=== PATIENT | male | born 1940 | race Caucasian/White ===

== ENCOUNTER 2016-10-11 11:52 | Emergency (ER) | payer OTHER ==
[~2016-10-11] VITALS: Ht 170.2 cm; Wt 104.1 kg
[~2016-10-11 11:52] MED LIST: ALL300 PO; ATRIN INH; CHOL1000 PO; CLIN150C PO; CYAN10004 PO; DIGO0.122 PO; DUTA0.5C PO; FURO-85 PO; INSDGIPEN SC; INSUINJ2 SQ; LEVAAER2 INH; METO100T44 PO; MOME50SP5 NAE; NTRGSL/4 UT; SIMV20TA5 PO; SPR25 PO; ZINC1TAB PO
[2016-10-11 11:56] VITALS: TEMP 36.9; Ht 170.2 cm; Wt 104.1 kg
--- NOTE | 2016-10-11 12:21 | EMERGENCY ROOM VISIT NOTE ---
History First contact with patient: 12:05 Chief Complaint: ABDOMINAL PAIN Stated Complaint: STOMACH SICK History of Present Illness The patient is a 76 year old male who presents to the Emergency Room via private vehicle accompanied by and son with complaints of "stomach sick". The patient states that he is here because of his shortness of breath. He states that for the past few weeks he's been experiencing worsening shortness of breath with lying flat, and this had used 2 L of oxygen while at home. He states that he has a history of CHF and this feels similar to previous exacerbations. He has noted an increase in weight, as well as swelling in both legs. He states that he has very little dizziness, and very minimal abdominal pain if at all. He does have a history of myocardial infarction in 1985 or 1986. 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 At this time he denies any chest pain, fevers, chills, nausea, vomiting, history of blood clots. His insurance verification rep is Romario Taylor PA-C. The patient states that he does take medications for his blood pressure as well as for his fluid. Review of Systems A complete 6-point Review of Systems was discussed with the patient, with pertinent positives and negatives listed in the History of Present Illness. All remaining Review of Systems questions can be considered negative unless otherwise specified. Past Medical/Surgical History Medical Problems: (1) A-fib (2) Cmxtc-pt-gfrayek renal failure (3) Coronary arteriosclerosis (4) Essential hypertension (5) Metabolic encephalopathy (6) Unresponsive episode Family History Diabetes mellitus Heart disease Hypertension Social History Smoking Status: Former Smoker Drug Use: none Marital Status: Occupation Status: retired, disabled Current/Historical Medications Scheduled Acetaminophen (Tylenol Arthritis Ext Rel), 650 MG PO Q8H Allopurinol (Allopurinol), 450 MG PO QAM Cholecalciferol (Vitamin D3), 1 TAB PO DAILY Cyanocobalamin (Vitamin B-12 1000 Mcg), 1,000 MCG PO DAILY Digoxin (Digoxin), 0.125 MG PO MWF Dutasteride (Avodart), 0.5 MG PO DAILY Furosemide (Lasix), 80 MG PO QAM Furosemide (Lasix), 60 MG PO QPM Furosemide (Lasix), 2 TAB PO DAILY Insulin Aspart (Novolog Flexpen), 15 UNITS SQ WM Insulin Glargine (Lantus Solostar), 45 UNIT SC QPM Ipratropium-Albuterol (Combivent Respimat), 1 PUFFS INH BID Metoprolol Succ (Toprol Xl) (Toprol-Xl ), 100 MG PO BID Mometasone Furoate (Nasal) (Mometasone Furoate), 2 SPRAYS LESTER BID Simvastatin (Zocor), 20 MG PO QPM Spironolactone (Spironolactone), 12.5 MG PO MWF Zinc Gluconate (Zinc), 25 MG PO DAILY Scheduled PRN Clindamycin Hcl (Cleocin), 4 CAP PO UD PRN for dental work Nitroglycerin (Nitrostat), 0.4 MG UT UD PRN for Chest Pain Allergies Coded Allergies: Zolpidem (Verified Allergy, Intermediate, SHORTNESS OF BREATH, 10/11/16) complaint of cough and shortness breath and itching Penicillins (Verified Allergy, Unknown, RASH, 10/11/16) Physical Exam Vital Signs Date Time Temp Pulse Resp B/P Pulse Ox O2 Delivery O2 Flow Rate FiO2 10/11/16 18:04 76 20 97/65 93 10/11/16 17:25 79 20 108/70 93 Room Air 10/11/16 16:33 79 10/11/16 16:30 78 24 113/70 92 Room Air 10/11/16 15:34 79 22 117/56 92 Room Air 10/11/16 13:55 81 24 103/60 94 Room Air 10/11/16 13:00 93 Room Air 10/11/16 13:00 93 Room Air 10/11/16 12:40 93 Room Air 10/11/16 12:27 79 10/11/16 11:56 36.9 96 20 99/53 94 Room Air Physical Exam VITAL SIGNS - Vital signs and nursing notes were reviewed. Patient is afebrile , normotensive, non-tachycardic and is saturating well at 94%. GENERAL -76-year-old male appearing his stated age who is in no acute distress. He is conversant, and does not appear to have any significant respiratory distress. Communicates well with provider and answers questions appropriately. SKIN - Without rashes. No petechial rash. HEAD - NC/AT. EYES - PERRL with EOMI bilaterally. Sclera anicteric. Palpebral conjunctiva pink and moist with no injection noted. EARS - No deformities of external structures noted on gross examination bilaterally. NOSE - Midline and without cyanosis. No epistaxis or purulent drainage noted. MOUTH/OROPHARYNX - Without perioral cyanosis. Buccal mucosa pink and moist and without leukoplakia. Tongue midline with equal elevation of palate bilaterally. No tonsillar hypertrophy, erythema, or exudates noted. Good dentition noted. NECK - Neck with FROM. No meningismus. LUNGS - Chest wall symmetric without accessory muscle use, intercostals retractions, or central cyanosis. Normal vesicular breath sounds CTA B/L. No wheezes, rales, or rhonchi appreciated. CARDIAC - RRR with S1/S2. No murmur, rubs, or gallops appreciated. ABDOMEN - Abdominal contour without pulsations or visible masses. BS normoactive all four quadrants. There is tenderness in the right upper quadrant. No palpable masses, hepatosplenomegaly, or ascites noted. EXTREMITIES - No clubbing or peripheral cyanosis. No pretibial edema present. +3 /5 radial, posterior tibial, and dorsalis pedis pulses palpated throughout. +5/ 5 strength noted in UE/LE bilaterally. NEUROLOGIC - Cranial nerves II through XII grossly intact. PSYCH - Pt is very pleasant and interacts well with examiner. Medical Decision & Procedures ER Provider Diagnostic Interpretation: BILIARY ULTRASOUND CLINICAL HISTORY: Right upper quadrant abdominal pain COMPARISON STUDY: CT scan dated 02/10/2016 FINDINGS: The pancreas appears normal as visualized. No focal hepatic masses are visualized. There is no intra or extrahepatic biliary ductal dilatation. The common bile duct measures 6 mm. There is minimal sludge within the gallbladder. There is trace pericholecystic fluid. No shadowing gallbladder calculi are visualized. There is a right pleural effusion. IMPRESSION: 1. Small amount of sludge within the gallbladder. Trace pericholecystic fluid. No shadowing calculi identified 2. No evidence of ductal dilatation. 3. Right pleural effusion Electronically signed by: Willi Nance M.D. 10/11/2016 3:29 PM Dictated Date/Time: 10/11/2016 3:26 PM CHEST ONE VIEW PORTABLE CLINICAL HISTORY: Congestive failure. Shortness of breath. COMPARISON STUDY: 05/24/2016 FINDINGS: There are postsurgical changes of midline sternotomy. 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 There are postsurgical changes of midline sternotomy and valvular replacement. The heart remains enlarged. There is radiographic evidence of congestive failure/fluid overload with improving pulmonary edema. There are small bilateral pleural effusions. There is no acute rectal consolidation.[ IMPRESSION: Cardiomegaly and radiographic evidence of congestive failure, improved when compared with the prior May 2016 study Electronically signed by: Willi Nance M.D. 10/11/2016 1:00 PM Dictated Date/Time: 10/11/2016 12:59 PM Laboratory Results 10/11/16 12:30 Red Blood Count 3.36, Mean Corpuscular Volume 102.1, Mean Corpuscular Hemoglobin 33.6, Mean Corpuscular Hemoglobin Concent 32.9, Mean Platelet Volume 10.8, Neutrophils (%) (Auto) 73.2, Lymphocytes (%) (Auto) 16.7, Monocytes (%) ( Auto) 5.5, Eosinophils (%) (Auto) 3.8, Basophils (%) (Auto) 0.4, Neutrophils # ( Auto) 10.34, Lymphocytes # (Auto) 2.36, Monocytes # (Auto) 0.77, Eosinophils # ( Auto) 0.53, Basophils # (Auto) 0.06 10/11/16 12:30 Test 10/11/16 12:30 10/11/16 12:34 White Blood Count 14.11 K/uL (4.8-10.8) Red Blood Count 3.36 M/uL (4.7-6.1) Hemoglobin 11.3 g/dL (14.0-18.0) Hematocrit 34.3 % (42-52) Mean Corpuscular Volume 102.1 fL (80-100) Mean Corpuscular Hemoglobin 33.6 pg (25-34) Mean Corpuscular Hemoglobin Concent 32.9 g/dl (32-36) Platelet Count 173 K/uL (130-400) Mean Platelet Volume 10.8 fL (7.4-10.4) Neutrophils (%) (Auto) 73.2 % Lymphocytes (%) (Auto) 16.7 % Monocytes (%) (Auto) 5.5 % Eosinophils (%) (Auto) 3.8 % Basophils (%) (Auto) 0.4 % Neutrophils # (Auto) 10.34 K/uL (1.4-6.5) Lymphocytes # (Auto) 2.36 K/uL (1.2-3.4) Monocytes # (Auto) 0.77 K/uL (0.11-0.59) Eosinophils # (Auto) 0.53 K/uL (0-0.5) Basophils # (Auto) 0.06 K/uL (0-0.2) RDW Standard Deviation 57.7 fL (36.4-46.3) RDW Coefficient of Variation 15.6 % (11.5-14.5) Immature Granulocyte % (Auto) 0.4 % Immature Granulocyte # (Auto) 0.05 K/uL (0.00-0.02) Anion Gap 7.0 mmol/L (3-11) Est Creatinine Clear Calc Drug Dose 33.9 ml/min Estimated GFR () 34.2 Estimated GFR (Non- 29.5 BUN/Creatinine Ratio 24.7 (10-20) Calcium Level 9.0 mg/dl (8.5-10.1) Total Bilirubin 1.2 mg/dl (0.2-1) Aspartate Amino Transf (AST/SGOT) 36 U/L (15-37) Alanine Aminotransferase (ALT/SGPT) 21 U/L (12-78) Alkaline Phosphatase 292 U/L (45-117) Total Protein 7.8 gm/dl (6.4-8.2) Albumin 2.9 gm/dl (3.4-5.0) Globulin 4.9 gm/dl (2.5-4.0) Albumin/Globulin Ratio 0.6 (0.9-2) Lipase 405 U/L (73-393) Bedside Troponin I 0.020 ng/ml (0-0.045) YH-Vmn-M-Type Natriuretic Peptide 1767 pg/ml (0-1800) Medications Administered Medications (Trade) Dose Ordered Sig/Ilya Route Start Time Stop Time Status Last Admin Dose Admin Furosemide/Syringe (Lasix Inj/ Syringe) 8 ml @ 4 mls/min NOW STAT IV 10/11/16 16:08 10/11/16 16:09 DC 10/11/16 16:53 4 MLS/MIN Medical Decision Patient was seen and evaluated as above. He presents today with shortness of breath has been progressively worsening, history of CHF as well as minimal right upper quadrant abdominal pain. The patient initially was triaged is having abdominal pain however upon history and physical examination is complaints of focused around shortness of breath. He states that he has a history of CHF, feels as though he is gaining weight, is retaining fluids in his legs and is having increased trouble breathing particularly when lying flat. He does take Lasix currently, 80 mg in the morning followed by 60 mg in the evening. He also notes very minimal dizziness. He denies any chest pain. He currently is saturating well on room air. I do not suspect pulmonary embolism. EKG reveals a ventricular paced rhythm, without any evidence of acute ectopy or ischemic change. IV access was initiated and the above workup was performed to evaluate for his symptomatology. CBC reveals leukocytosis at 14.11, hemoglobin of 11.3. The hemoglobin appears to be stable from previous. The leukocytosis is an interval development. The CMP reveals creatinine of 2.1 which appears to be worse than previous. Glucose of 211, total bilirubin of 1.2 , alkaline phosphatase of 292, [id number] troponin is negative and BNP is 1767. Lipase is 405. I suspect the patient may have a potential underlying gallbladder etiology therefore right upper quadrant ultrasound was pursued. This is reveal a small amount of sludge with pericholecystic fluid. At this time I do not believe emergent surgery is necessary. I believe he can follow- up in the outpatient setting. I believe that clinically he is experiencing a CHF exacerbation, and was also evaluated by my attending. He recommended that we give him 80 mg of Lasix IV followed by an additional dose of 80 mg Lasix mid day, between his morning and evening dose. I will write him a prescription for this and send this to his pharmacy. He was educated upon this medication as well as his and son. They were very receptive to this. The patient does not have any evidence of consolidation on his chest x-ray but there is evidence of effusion. This also correlates with CHF. I believe that the patient this time is better managed in the outpatient setting, and the patient seems to be in agreement that he does not like admission at this time. The patient was also evaluated by my attending. The patient was discharged home in good condition after educating upon worrisome symptoms which to return, and answering questions. In evaluation treatment this patient the following differential diagnoses were entertained: Cholecystitis, CHF, PE, NC, among others. It was recommended the patient obtain a HIDA scan in the outpatient setting with close follow-up with his family doctor and insurance verification rep as soon as possible. Impression Primary Impression: Acute exacerbation of CHF (congestive heart failure) Additional Impressions: Leukocytosis Anemia Right upper quadrant abdominal pain Total bilirubin, elevated Alkaline phosphatase raised Cardiomegaly Sludge in gallbladder pericholicystic fluid Departure Information Dispostion Home / Self-Care Condition GOOD Prescriptions Furosemide (LASIX) 40 Mg Tab 2 TAB PO DAILY for 15 Days, #30 TAB 1 Refill Prov: Adan Cuevas, FRANCINE 10/11/16 Referrals Octavio Bueno M.D. (PCP) Patient Instructions My [facility] Additional Instructions You were seen in the emergency department for your shortness of breath and right upper quadrant abdominal pain. There is evidence of slight irritation of the gallbladder, but at this time I do not suspect an infected gallbladder. It appears at this time you're experiencing a worsening of your heart failure. For this reason it is recommended that you had 80 mg of Lasix between your current 2 doses. Please continue your morning and evening dose of Lasix but please add 80 mg daily midday. Please follow-up with your insurance verification rep regarding this as soon as possible by calling their office first thing Thursday. Please follow-up with your family doctor regarding today's visit to discuss imaging and lab results in more detail. Please return to the emergency department with any new/concerning symptoms. Please rest, drink water and eat a healthy well-balanced diet. Thank you for your time. Problem Qualifiers
[2016-10-11] MEDS ORDERED: LNX125 PO (12:36)
[2016-10-11] MEDS ORDERED: NVLGI/PEN SQ (12:36)
[2016-10-11] MEDS ORDERED: IPRA1AER2 INH (12:36)
[2016-10-11] MEDS ORDERED: SIMV40TA2 PO (12:36)
[2016-10-11] MEDS ORDERED: ACET1TAB84 PO (12:36)
[2016-10-11] MEDS ORDERED: MOME6000 NAE (12:36)
[2016-10-11 12:55] LABS: POINT OF CARE TROPONIN I 0.02 ng/ml (0-0.045)
[2016-10-11 12:58] LABS: BASO % 0.4 %; BASO ABS # 0.06 K/uL (0-0.2); COMPLETE YES; EOS % 3.8 %; HEMATOCRIT 34.3 % (42-52); IG% 0.4 %; LYMPH % 16.7 %; LYMPH ABS # 2.36 K/uL (1.2-3.4); MEAN CELL VOLUME 102.1 fL (80-100); MEAN CORPUSCULAR HEMOGLOBIN 33.6 pg (25-34); MEAN CORPUSCULAR HGB CONC 32.9 g/dl (32-36); MEAN PLATELET VOLUME 10.8 fL (7.4-10.4); MONO % 5.5 %; NEUT % 73.2 %; PLATELET COUNT 173 K/uL (130-400); RED BLOOD COUNT 3.36 M/uL (4.7-6.1); WHITE BLOOD COUNT 14.11 K/uL (4.8-10.8)
[2016-10-11 13:00] VITALS: O2SAT 93
--- NOTE | 2016-10-11 13:03 | DIAGNOSTIC IMAGING REPORT ---
CHEST ONE VIEW PORTABLE CLINICAL HISTORY: Congestive failure. Shortness of breath. COMPARISON STUDY: 05/24/2016 FINDINGS: There are postsurgical changes of midline sternotomy. 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 There are postsurgical changes of midline sternotomy and valvular replacement. The heart remains enlarged. There is radiographic evidence of congestive failure/fluid overload with improving pulmonary edema. There are small bilateral pleural effusions. There is no acute rectal consolidation.[ IMPRESSION: Cardiomegaly and radiographic evidence of congestive failure, improved when compared with the prior May 2016 study Electronically signed by: Willi Nance M.D. 10/11/2016 1:00 PM Dictated Date/Time: 10/11/2016 12:59 PM
[2016-10-11 13:15] LABS: BUN/CREATININE RATIO 24.7 (10-20); CREATININE 2.1 mg/dl (0.60-1.40); POTASSIUM 4.4 mmol/L (3.5-5.1)
[2016-10-11 13:18] LABS: ALB/GLOB RATIO 0.6 (0.9-2)
--- NOTE | 2016-10-11 15:31 | DIAGNOSTIC IMAGING REPORT ---
BILIARY ULTRASOUND CLINICAL HISTORY: Right upper quadrant abdominal pain COMPARISON STUDY: CT scan dated 02/10/2016 FINDINGS: The pancreas appears normal as visualized. No focal hepatic masses are visualized. There is no intra or extrahepatic biliary ductal dilatation. The common bile duct measures 6 mm. There is minimal sludge within the gallbladder. There is trace pericholecystic fluid. No shadowing gallbladder calculi are visualized. There is a right pleural effusion. IMPRESSION: 1. Small amount of sludge within the gallbladder. Trace pericholecystic fluid. No shadowing calculi identified 2. No evidence of ductal dilatation. 3. Right pleural effusion Electronically signed by: Willi Nance M.D. 10/11/2016 3:29 PM Dictated Date/Time: 10/11/2016 3:26 PM
[2016-10-11] MEDS ORDERED: FUROSEMIDE INJ 80 MG in SYRINGE 0 ML IV STA (16:08)
--- NOTE | 2016-10-11 16:08 | EMERGENCY ROOM VISIT NOTE ---
ED Visit Note First contact with patient: 12:05 76-year-old male here with shortness of breath. He has a prior history of congestive failure. The patient was fully evaluated by Adan Cuevas PA-C. Please see his note. I also independently evaluated the patient. The patient has elevation of his white count and transaminases. The patient appears to be in congestive failure. The patient was given 80 mg of IV Lasix. The patient may have an occult cholelithiasis but his primary problem is congestive failure. The patient will need close follow-up by his family physician/ cardiology.
[2016-10-11] MEDS ORDERED: FURO40TA3 PO (17:32)
[2016-10-11 18:04] VITALS: BP 97/65; PULSE 76; O2SAT 93
== END 2016-10-11 18:04 | disposition home or self-care (01) ==
LOC: C.EDB 11:54
DX: I50.9 Heart failure, unspecified (principal); D72.829 Elevated white blood cell count, unspecified; D64.9 Anemia, unspecified; R10.11 Right upper quadrant pain; I51.7 Cardiomegaly; R74.8 Abnormal levels of other serum enzymes; K83.8 Other specified diseases of biliary tract; I12.9 Hypertensive chronic kidney disease with stage 1 through stage 4 chronic kidney disease, or unspecified chronic kidney disease; N18.9 Chronic kidney disease, unspecified; I25.10 Atherosclerotic heart disease of native coronary artery without angina pectoris; Z82.49 Family history of ischemic heart disease and other diseases of the circulatory system; Z83.3 Family history of diabetes mellitus; I48.91 Unspecified atrial fibrillation; Z79.4 Long term (current) use of insulin; Z79.899 Other long term (current) drug therapy

== ENCOUNTER 2017-01-05 13:03 | Inpatient (IN) | payer OTHER ==
[~2017-01-05] VITALS: Ht 172.7 cm; Wt 85.9 kg
[2017-01-05] VITALS (23 sets, daily range): BP systolic 56–129; BP diastolic 21–48; PULSE 74–91; TEMP 36.4; O2SAT 90–97; Ht 172.7 cm; Wt 85.9 kg
[~2017-01-05 13:03] MED LIST changes: +ACET1TAB84 PO; -ATRIN INH; -DIGO0.122 PO; +FURO40TA3 PO; -INSUINJ2 SQ; +IPRA1AER2 INH; -LEVAAER2 INH; +LNX125 PO; -METO100T44 PO; +METO1TAB69 PO; -MOME50SP5 NAE; +MOME6000 NAE; +NVLGI/PEN SQ; -SIMV20TA5 PO; +SIMV40TA2 PO
[2017-01-05] MEDS ORDERED: SODIUM CHLORIDE 0.9% 1000ML 1,000 ML IV STA (13:27)
[2017-01-05] MEDS ORDERED: DEXTROSE 50% 50 ML SYR ONE (13:47)
--- NOTE | 2017-01-05 13:51 | EMERGENCY ROOM VISIT NOTE ---
History Report prepared by Shantal: Savage Barger Under the Supervision of: Dr. Jeffery Fernandez M.D. First contact with patient: 13:17 Chief Complaint: ILLNESS Stated Complaint: GENERAL ILLNESS History of Present Illness The patient is a 76 year old male who presents to the Emergency Room by EMS with complaints of a persistent illness beginning a few days ago. His symptoms include vomiting, diarrhea, cough, and generalized weakness. He is currently being treated for scabies. Per nursing staff, the patient has not been eating or drinking much at home. He is diabetic. Per , the patient has been vomiting when he eats. She states that his vomit is mostly liquid. She also notes that the patient's stool appears "very dark". The patient denies feeling thirsty. He denies any abdominal pain, chest pain, urinary symptoms, fever, or increased leg swelling. He is not on any blood thinners. The patient has a history of cirrhosis of the liver, and a kidney mass. The mass on his kidney was identified about 10 months ago and has not been worked up. Source of History: patient Onset: A few days ago Quality: other (illness) Timing: other (persistent) Associated Symptoms: + cough, + vomiting, + melena, + diarrhea, + weakness ( generalized), No fevers, No chest pain, No abdominal pain, No urinary symptoms Note: The patient denies any increased leg swelling. Review of Systems See HPI for pertinent positives & negatives. A total of 10 systems reviewed and were otherwise negative. Past Medical & Surgical Medical Problems: (1) A-fib (2) [id number] renal failure (3) Coronary arteriosclerosis (4) Essential hypertension (5) Metabolic encephalopathy (6) Unresponsive episode Family History Diabetes mellitus Heart disease Hypertension Social History Smoking Status: Former Smoker Drug Use: none Marital Status: Occupation Status: retired, disabled Current/Historical Medications Scheduled Acetaminophen (Tylenol Arthritis Ext Rel), 650 MG PO Q8H Allopurinol (Allopurinol), 450 MG PO QAM Cholecalciferol (Vitamin D3), 1 TAB PO DAILY Cyanocobalamin (Vitamin B-12 1000 Mcg), 1,000 MCG PO DAILY Digoxin (Digoxin), 0.125 MG PO MWF Dutasteride (Avodart), 0.5 MG PO DAILY Insulin Aspart (Novolog Flexpen), 15 UNITS SQ WM Insulin Glargine (Lantus Solostar), 25 UNIT SC QPM Ipratropium-Albuterol (Combivent Respimat), 1 PUFFS INH BID Metoprolol Succ (Toprol Xl) (Toprol-Xl ), 100 MG PO BID Mometasone Furoate (Nasal) (Mometasone Furoate), 2 SPRAYS LESTER BID Simvastatin (Zocor), 20 MG PO QPM Spironolactone (Spironolactone), 12.5 MG PO MWF Torsemide (Demadex), 100 MG PO DAILY Zinc Gluconate (Zinc), 25 MG PO DAILY Scheduled PRN Clindamycin Hcl (Cleocin), 4 CAP PO UD PRN for dental work Nitroglycerin (Nitrostat), 0.4 MG UT UD PRN for Chest Pain Allergies Coded Allergies: Zolpidem (Verified Allergy, Intermediate, SHORTNESS OF BREATH, 01/05/17) complaint of cough and shortness breath and itching Penicillins (Verified Allergy, Unknown, RASH, 01/05/17) Physical Exam Vital Signs Date Time Temp Pulse Resp B/P (MAP) Pulse Ox O2 Delivery O2 Flow Rate FiO2 01/05/17 16:41 70 01/05/17 16:23 71 20 55/37 96 Nasal Cannula 3.0 01/05/17 15:16 63/43 NIBP 01/05/17 15:09 74 14 56/38 97 Room Air 2.5 01/05/17 14:45 75 14 140/108 95 Nasal Cannula 2.0 01/05/17 14:15 78 18 119/98 99 Nasal Cannula 2.0 01/05/17 13:33 95 Nasal Cannula 2.0 01/05/17 13:32 81 22 109/96 94 Nasal Cannula 2.0 01/05/17 13:20 36.5 80 16 88/39 91 Room Air 01/05/17 13:15 78 Physical Exam GENERAL: Patient is in no acute distress. HEENT: No acute trauma, normocephalic atraumatic, mucous membranes dry, no nasal congestion. NECK: No stridor, no adenopathy, no meningismus, trachea is midline. LUNGS: Clear to auscultation when listening anterior. Breath sound equal. No wheezing. HEART: Slightly irregular with a 2/6 systolic murmur and a possible rub. Normal rate. ABDOMEN: Soft. Palpable lesion to the RUQ, possibly consistent with an enlarged liver. No peritonitis. No obvious hernia. RECTAL: Dark stool, heme positive. EXTREMITIES: Moderate bilateral pedal edema without cellulitis. No evidence for acute trauma. NEUROLOGIC: Oriented x 3, no acute motor or sensory deficits, no focal weakness. SKIN: Jaundice. Multiple open areas across the skin consistent with possible bites vs generalized rash Medical Decision & Procedures ER Provider Diagnostic Interpretation: Radiology results as stated below per my review and radiologist interpretation: CHEST ONE VIEW PORTABLE FINDINGS: There are postsurgical changes of midline sternotomy and valvular replacement. A left subclavian pacer/defibrillator is evident. The heart remains enlarged. There is radiographic evidence of congestive failure with mild pulmonary edema. Small pleural effusions are suspected[ IMPRESSION: Worsening congestive failure. Electronically signed by: Willi Nance M.D. ABD/PELVIS NO IV OR ORAL CONT FINDINGS: There is a moderate-sized right pleural effusion with subsegmental alveolar opacities of the bilateral lung bases. No pneumoperitoneum identified. There is enlargement of the inferior cardiac chambers with pacer leads noted. Coronary 2-year-old and mitral annulus calcifications are seen. Median sternotomy wires are partially imaged. There is streak artifact from placement of the patient's arms which limits the study. There is small volume of intra-abdominal intrapelvic ascites with moderate volume diffuse body wall edema. Skin thickening along the anterior abdominal wall is redemonstrated. Evaluation of the hepatic parenchyma is limited secondary to the above factors as well as lack of IV contrast. There is suggestion of several low attenuating hepatic lesions measuring close to 3 cm within the right hepatic lobe. These were not definitely identified on comparison study. The spleen and adrenal glands are within normal limits. There is at least moderate diffuse pancreatic atrophy. There is no renal calculi or hydronephrosis identified. There is marked circumferential wall thickening of the partially collapsed urinary bladder. There appears to be a small diverticulum or urachal remnant emanating from the dome of the urinary bladder which is best seen on the sagittal images. Prostate is mildly enlarged. There is extensive atherosclerotic plaquing of the abdominal and iliac vasculature. There is mild fusiform aneurysmal dilation of the infrarenal abdominal aorta, 3.1 x 2.7 cm. No bulky retroperitoneal adenopathy is seen. There are several loops of nondilated small bowel air-fluid leveling without evidence of obstruction. Noninflamed colonic diverticuli are seen. The appendix is partially imaged on image 299 and appears to be within normal limits. There is diffuse body wall edema which is moderate. Is diffuse sclerotic metastasis throughout the pelvis and spine is new from comparison. IMPRESSION: 1. Findings compatible with diffuse sclerotic metastasis to the imaged axial and appendicular skeletal system. These findings are suspicious for prostate cancer. 2. Suggested diffuse hepatic metastasis with mild amount of intra-abdominal and intrapelvic ascites. 3. Small right pleural effusion with subsegmental consolidation of the bilateral lung bases suggesting atelectasis or pneumonitis. 4. Circumferential wall thickening of the urinary bladder suggests cystitis. 5. Mild fusiform aneurysmal dilation of the infrarenal abdominal aorta, 3.1 cm. The above report was generated using voice recognition software. It may contain grammatical, syntax or spelling errors. Electronically signed by: Ranulfo Rubi M.D. Laboratory Results 01/05/17 13:38 Red Blood Count 3.23, Mean Corpuscular Volume 92.9, Mean Corpuscular Hemoglobin 32.5, Mean Corpuscular Hemoglobin Concent 35.0, Mean Platelet Volume 10.3, Neutrophils (%) (Auto) 90.9, Lymphocytes (%) (Auto) 3.1, Monocytes (%) (Auto) 4.2, Eosinophils (%) (Auto) 0.6, Basophils (%) (Auto) 0.1, Neutrophils # (Auto) 25.83, Lymphocytes # (Auto) 0.87, Monocytes # (Auto) 1.18, Eosinophils # (Auto) 0.18, Basophils # (Auto) 0.02 01/05/17 14:28 Test 01/05/17 13:38 01/05/17 13:42 01/05/17 14:28 01/05/17 15:30 White Blood Count 28.38 K/uL (4.8-10.8) Red Blood Count 3.23 M/uL (4.7-6.1) Hemoglobin 10.5 g/dL (14.0-18.0) Hematocrit 30.0 % (42-52) Mean Corpuscular Volume 92.9 fL (80-100) Mean Corpuscular Hemoglobin 32.5 pg (25-34) Mean Corpuscular Hemoglobin Concent 35.0 g/dl (32-36) Platelet Count 178 K/uL (130-400) Mean Platelet Volume 10.3 fL (7.4-10.4) Neutrophils (%) (Auto) 90.9 % Lymphocytes (%) (Auto) 3.1 % Monocytes (%) (Auto) 4.2 % Eosinophils (%) (Auto) 0.6 % Basophils (%) (Auto) 0.1 % Neutrophils # (Auto) 25.83 K/uL (1.4-6.5) Lymphocytes # (Auto) 0.87 K/uL (1.2-3.4) Monocytes # (Auto) 1.18 K/uL (0.11-0.59) Eosinophils # (Auto) 0.18 K/uL (0-0.5) Basophils # (Auto) 0.02 K/uL (0-0.2) RDW Standard Deviation 69.6 fL (36.4-46.3) RDW Coefficient of Variation 21.2 % (11.5-14.5) Immature Granulocyte % (Auto) 1.1 % Immature Granulocyte # (Auto) 0.30 K/uL (0.00-0.02) Polychromasia 1+ Anisocytosis PRESENT Target Cells 1+ Ovalocytes 1+ Echinocytes 1+ Bedside Lactic Acid Venous 5.78 mmol/L (0.90-1.70) Anion Gap 13.0 mmol/L (3-11) Est Creatinine Clear Calc Drug Dose 12.4 ml/min Estimated GFR () 9.4 Estimated GFR (Non- 8.1 BUN/Creatinine Ratio 26.9 (10-20) Lactic Acid Level 5.7 mmol/L (0.4-2.0) Calcium Level 8.6 mg/dl (8.5-10.1) Magnesium Level 2.5 mg/dl (1.8-2.4) Total Bilirubin 14.1 mg/dl (0.2-1) Aspartate Amino Transf (AST/SGOT) 206 U/L (15-37) Alanine Aminotransferase (ALT/SGPT) 73 U/L (12-78) Alkaline Phosphatase 452 U/L (45-117) Troponin I 0.068 ng/ml (0-0.045) Total Protein 5.6 gm/dl (6.4-8.2) Albumin 1.7 gm/dl (3.4-5.0) Globulin 3.9 gm/dl (2.5-4.0) Albumin/Globulin Ratio 0.4 (0.9-2) Thyroid Stimulating Hormone (TSH) 0.896 uIu/ml (0.300-4.500) Random Cortisol 25.94 mcg/dl Digoxin Level 0.6 ng/ml (0.8-2.0) Test 01/05/17 16:20 Bedside Glucose 90 mg/dl (70-99) Laboratory results reviewed by me. Medications Administered Medications (Trade) Dose Ordered Sig/Ilya Route Start Time Stop Time Status Last Admin Dose Admin Sodium Chloride 1,000 ml @ 999 mls/hr Q1H1M STAT IV 01/05/17 13:27 01/05/17 14:27 DC 01/05/17 13:37 999 MLS/HR Dextrose (Dextrose 50% 50ML Syringe) 50 ml STK-MED ONCE .ROUTE 01/05/17 13:47 01/05/17 13:48 DC 01/05/17 13:52 25 ML Cefepime HCl 2000 mg/Dextrose 112.5 ml @ 200 mls/hr ONE STAT IV 01/05/17 15:06 01/05/17 15:39 DC 01/05/17 15:37 200 MLS/HR Vancomycin HCl (Vancomycin 1gm/ 270ml Nss) 1 gm NOW STAT IV 01/05/17 15:06 01/05/17 15:08 DC 01/05/17 15:17 1 GM Dobutamine HCl 250 ml @ 0 mls/hr Q0M PRN IV 01/05/17 16:15 02/04/17 16:14 01/05/17 16:37 16.9 MLS/HR ECG Indication: weakness Rate (beats per minute): 74 Rhythm: other (AV pacemaker) Findings: no acute ischemic change, no ectopy ED Course 1320: The patient was evaluated in room A11B. A complete history and physical exam was performed. 1327: Ordered Sodium Chloride 1000 ml @ 999 mls/hr IV. 1347: Ordered Dextrose 50% 50 mL IV. 1506: Ordered Vancomycin 1 gm/270 mL NSS IV, Cefepime HCl 2000 mg/Dextrose 112.5 mL @ 200 mL/hr IV. 1515: Upon reexamination the patient is resting comfortably. He would like to be a full code at the moment. I discussed results and treatment plan with the patient. He verbalizes agreement and understanding. The patient will be evaluated for further management. Medical Decision The patient is a 76 year old male who presents to the ED with complaints of a persistent illness. Differential diagnoses considered include dehydration, liver failure, renal failure, electrolyte imbalance, sepsis, bacteremia, GI bleeding, UTI, bowel obstruction and viral illness. I did personally review the patient's medication list. The patient's blood pressure was occasionally elevated and likely situational, outpatient follow-up is not required. There is a significant leukocytosis, likely consistent with infection or possibly just the stress of the situation. Patient was anemic and this was a newer finding for him. Stool was dark and heme positive by my testing. There was evidence for acute renal failure with a creatinine of over 6. There was evidence for liver disease-bilirubin was over 14. Chest film showed CHF. No pneumothorax. Blood cultures are pending. Urine culture is pending. Urinalysis is pending. Coags are pending. Abdominal and pelvis CT shows areas of multiple metastasis. No bowel obstruction. Lactic acid level was quite elevated consistent with dehydration and/or sepsis. Digoxin level was not toxic. The patient was aggressively managed. He was quite ill. He received IV saline and his blood pressure responded. Over his stay in the ER though, the blood pressure again dropped. He received a second saline bolus. I was hesitant to give fluids more aggressively as he had evidence for heart failure on chest film. He received IV vancomycin IV cefepime for antibiotic coverage. The patient is quite ill, I told him about my findings so far. I talked with the family. The patient does want to be a full code. The patient is mentating well despite the low blood pressure. He does have adequate peripheral IV access. I did consult the metal filer addiction professional. The patient was seen by the metal filer in the emergency room. I did talk with case management as well as the on-call hospitalist. Admission/observation is warranted. Of note, the patient is quite ill, he may not survive this hospital stay. He appears to be in heart failure. He is hypotensive and possibly septic. He is dehydrated with renal failure and liver disease. He is jaundiced. He has evidence for multiple areas of metastasis. He has evidence for anemia with GI bleeding. Consults Time Called: [id number] Consulting Physician: Ling Moreno Returned Call: [phone] Discussed the patient's case. The patient will be evaluated for further management. Additional Consults: Time Called: [id number] Consulted Physician: Dr. Castillo -ICU Returned Call: [phone] Additional Comments: Discussed the patient's case. The patient will be evaluated for further management. Impression Primary Impression: Vomiting Additional Impressions: Heme positive stool Dehydration CHF (congestive heart failure) Metastatic cancer Acute renal failure Hypotension Critical Care I have personally spent greater than 35 minutes of critical care time in the direct management of this patient. This includes bedside care, interpretation of diagnostic studies, and testing, discussion with consultants, patient, and family members, and other required patient management activities. This 35 minutes is in excess of all separately billable procedures. Scribe Attestation The scribe's documentation has been prepared under my direction and personally reviewed by me in its entirety. I confirm that the note above accurately reflects all work, treatment, procedures, and medical decision making performed by me. Departure Information Dispostion Being Evaluated By Hospitalist Octavio Villalba M.D. (PCP) Patient Instructions My [facility] Problem Qualifiers
--- NOTE | 2017-01-05 13:54 | DIAGNOSTIC IMAGING REPORT ---
CHEST ONE VIEW PORTABLE CLINICAL HISTORY: Weakness. Altered mental status. COMPARISON STUDY: 10/09/2016 FINDINGS: There are postsurgical changes of midline sternotomy and valvular replacement. A left subclavian pacer/defibrillator is evident. The heart remains enlarged. There is radiographic evidence of congestive failure with mild pulmonary edema. Small pleural effusions are suspected[ IMPRESSION: Worsening congestive failure. Electronically signed by: Willi Nance M.D. 01/05/2017 1:53 PM Dictated Date/Time: 01/05/2017 1:51 PM
[2017-01-05 14:49] LABS: MEAN CELL VOLUME 92.9 fL (80-100); MEAN CORPUSCULAR HEMOGLOBIN 32.5 pg (25-34); MEAN PLATELET VOLUME 10.3 fL (7.4-10.4); PLATELET COUNT 178 K/uL (130-400); RED BLOOD COUNT 3.23 M/uL (4.7-6.1); WHITE BLOOD COUNT 28.38 K/uL (4.8-10.8)
[2017-01-05 14:56] LABS: INR 2.4 (0.9-1.1); PARTIAL THROMBOPLASTIN RATIO 2.1
--- NOTE | 2017-01-05 14:57 | DIAGNOSTIC IMAGING REPORT ---
ABD/PELVIS NO IV OR ORAL CONT HISTORY:76 yearsMaleacute diffuse abdominal pain and general illness with concern for bowel obstruction COMPARISON: CT abdomen and pelvis 02/10/2016 TECHNIQUE: Multiple axial CT images of the abdomen and pelvis were obtained without contrast. FINDINGS: There is a moderate-sized right pleural effusion with subsegmental alveolar opacities of the bilateral lung bases. No pneumoperitoneum identified. There is enlargement of the inferior cardiac chambers with pacer leads noted. Coronary 2-year-old and mitral annulus calcifications are seen. Median sternotomy wires are partially imaged. There is streak artifact from placement of the patient's arms which limits the study. There is small volume of intra-abdominal intrapelvic ascites with moderate volume diffuse body wall edema. Skin thickening along the anterior abdominal wall is redemonstrated. Evaluation of the hepatic parenchyma is limited secondary to the above factors as well as lack of IV contrast. There is suggestion of several low attenuating hepatic lesions measuring close to 3 cm within the right hepatic lobe. These were not definitely identified on comparison study. The spleen and adrenal glands are within normal limits. There is at least moderate diffuse pancreatic atrophy. There is no renal calculi or hydronephrosis identified. There is marked circumferential wall thickening of the partially collapsed urinary bladder. There appears to be a small diverticulum or urachal remnant emanating from the dome of the urinary bladder which is best seen on the sagittal images. Prostate is mildly enlarged. There is extensive atherosclerotic plaquing of the abdominal and iliac vasculature. There is mild fusiform aneurysmal dilation of the infrarenal abdominal aorta, 3.1 x 2.7 cm. No bulky retroperitoneal adenopathy is seen. There are several loops of nondilated small bowel air-fluid leveling without evidence of obstruction. Noninflamed colonic diverticuli are seen. The appendix is partially imaged on image 299 and appears to be within normal limits. There is diffuse body wall edema which is moderate. Is diffuse sclerotic metastasis throughout the pelvis and spine is new from comparison. IMPRESSION: 1. Findings compatible with diffuse sclerotic metastasis to the imaged axial and appendicular skeletal system. These findings are suspicious for prostate cancer. 2. Suggested diffuse hepatic metastasis with mild amount of intra-abdominal and intrapelvic ascites. 3. Small right pleural effusion with subsegmental consolidation of the bilateral lung bases suggesting atelectasis or pneumonitis. 4. Circumferential wall thickening of the urinary bladder suggests cystitis. 5. Mild fusiform aneurysmal dilation of the infrarenal abdominal aorta, 3.1 cm. The above report was generated using voice recognition software. It may contain grammatical, syntax or spelling errors. Electronically signed by: Ranulfo Rubi M.D. 01/05/2017 2:56 PM Dictated Date/Time: 01/05/2017 2:45 PM
[2017-01-05] MEDS ORDERED: VANCOMYCIN 1GM/270ML NSS IV STA (15:06)
[2017-01-05] MEDS ORDERED: CEFEPIME IV 2,000 MG in DEXTROSE 5% 100ML 100 ML IV STA (15:06)
[2017-01-05] MEDS ORDERED: TORS100T13 PO (15:09)
[2017-01-05 15:15] LABS: ANISOCYTOSIS PRESENT; BASO % 0.1 %; BASO ABS # 0.02 K/uL (0-0.2); COMPLETE YES; ECHINOCYTES 1+; EOS % 0.6 %; IG% 1.1 %; LYMPH % 3.1 %; LYMPH ABS # 0.87 K/uL (1.2-3.4); MONO % 4.2 %; NEUT % 90.9 %; OVALOCYTES 1+; POLYCHROMASIA 1+; TARGET CELLS 1+
[2017-01-05 15:34] LABS: ALB/GLOB RATIO 0.4 (0.9-2); BUN/CREATININE RATIO 26.9 (10-20); CALCIUM 8.6 mg/dl (8.5-10.1); CREATININE 6.1 mg/dl (0.60-1.40); MAGNESIUM 2.5 mg/dl (1.8-2.4); POTASSIUM 5.1 mmol/L (3.5-5.1); THYROID STIMULATING HORMONE 0.896 uIu/ml (0.300-4.500)
[2017-01-05] MEDS ORDERED: DOBUTamine 500MG / 250ML D5W ONE (16:09)
[2017-01-05] MEDS ORDERED: DOBUTamine / D5W 500 MG IV PRN ×2 (16:15→18:00)
--- NOTE | 2017-01-05 16:32 | Critical Care Consultation ---
Critical Care Consultation Date of Consultation: Jan 05, 2017. Attending Physician: Wil Reason for Consultation: Hypotension, multisystem organ failure History of Present Illness Patient is a 76-year-old male who presented with generalized fatigue and skin turning yellow after 2-3 days of nausea and vomiting and generalized malaise. As a significant past medical history for coronary artery disease status post pacemaker and AICD. There is reported history of kidney cancer. Patient reports an approximately January he was evaluated by a urologist with a cystoscopy and reports there was evidence of blood draining from a ureter. Unclear whether the patient went for further evaluation with oncology, he reportedly obtained a second opinion, however the third additional workup with the next stage in the medical treatment plan to include a biopsy. Today the patient has 5 out of 10 pain that localizes to the abdomen, nausea, no longer vomiting, chronic diarrhea that has been black. Per ED physician they are guaiac positive stools. He reports he has an allergy to penicillin, however was from when he was a child and he has no recollection of any form of reaction. He denies alcohol or illicit drug use, he has a significant smoking history: Reports that he started in his teenage years and continued until the late 80s smoking at least a pack a day, which at minimum equates to a [id number] smoking history. He previously worked in a factory in [place], denied exposure to hazardous chemicals. He denies chest pain, thinks there is exertional dyspnea, increased leg swelling. No history of DVTs or PE. Past Medical/Surgical History as noted above Family History Diabetes mellitus Heart disease Hypertension Social History Smoking Status: Former Smoker Drug Use: none Marital Status: Occupation Status: retired, disabled Allergies Coded Allergies: Zolpidem (Verified Allergy, Intermediate, SHORTNESS OF BREATH, 01/05/17) complaint of cough and shortness breath and itching Penicillins (Verified Allergy, Unknown, RASH, 01/05/17) Home Medications Scheduled Acetaminophen (Tylenol Arthritis Ext Rel), 650 MG PO Q8H Allopurinol (Allopurinol), 450 MG PO QAM Cholecalciferol (Vitamin D3), 1 TAB PO DAILY Cyanocobalamin (Vitamin B-12 1000 Mcg), 1,000 MCG PO DAILY Digoxin (Digoxin), 0.125 MG PO MWF Dutasteride (Avodart), 0.5 MG PO DAILY Insulin Aspart (Novolog Flexpen), 15 UNITS SQ WM Insulin Glargine (Lantus Solostar), 25 UNIT SC QPM Ipratropium-Albuterol (Combivent Respimat), 1 PUFFS INH BID Metoprolol Succ (Toprol Xl) (Toprol-Xl ), 100 MG PO BID Mometasone Furoate (Nasal) (Mometasone Furoate), 2 SPRAYS LESTER BID Simvastatin (Zocor), 20 MG PO QPM Spironolactone (Spironolactone), 12.5 MG PO MWF Torsemide (Demadex), 100 MG PO DAILY Zinc Gluconate (Zinc), 25 MG PO DAILY Scheduled PRN Clindamycin Hcl (Cleocin), 4 CAP PO UD PRN for dental work Nitroglycerin (Nitrostat), 0.4 MG UT UD PRN for Chest Pain Review of Systems See above for pertinent positives & negatives. A total of 10 systems reviewed and were otherwise negative. Constitutional: + weakness, + fatigue, No fever Respiratory: + dyspnea on exertion, No cough, No sputum, No wheezing Physical Exam Date Time Temp Pulse Resp B/P (MAP) Pulse Ox O2 Delivery O2 Flow Rate FiO2 01/05/17 15:16 63/43 NIBP 01/05/17 15:09 74 14 56/38 97 Room Air 2.5 01/05/17 14:45 75 14 140/108 95 Nasal Cannula 2.0 01/05/17 14:15 78 18 119/98 99 Nasal Cannula 2.0 01/05/17 13:33 95 Nasal Cannula 2.0 01/05/17 13:32 81 22 109/96 94 Nasal Cannula 2.0 01/05/17 13:20 36.5 80 16 88/39 91 Room Air 01/05/17 13:15 78 General Appearance: uncomfortable, other (jaundice appearing) Head: normocephalic, atraumatic Eyes: PERRLA, EOMI, scleral icterus Neck: no tenderness, trachea midline, no stridor Respiratory: no respiratory distress, rhonchi Cardiovasular: regular rate/rhythm, systolic murmur Abdomen: no guarding, epigastric TTP Genitourinary - Male: external genitalia normal (uncirculsized male) Back: normal inspection, no paravertebral TTP Lower Extremities: edema Pulses: radial (R) (1+), radial (L) (1+), femoral (R) (1+), femoral (L) (1+) Neuro: alert, oriented x 3 Laboratory Results Last 24 Hours Test 01/05/17 13:38 01/05/17 13:40 01/05/17 13:42 01/05/17 14:10 White Blood Count 28.38 K/uL Red Blood Count 3.23 M/uL Hemoglobin 10.5 g/dL Hematocrit 30.0 % Mean Corpuscular Volume 92.9 fL Mean Corpuscular Hemoglobin 32.5 pg Mean Corpuscular Hemoglobin Concent 35.0 g/dl Platelet Count 178 K/uL Mean Platelet Volume 10.3 fL Neutrophils (%) (Auto) 90.9 % Lymphocytes (%) (Auto) 3.1 % Monocytes (%) (Auto) 4.2 % Eosinophils (%) (Auto) 0.6 % Basophils (%) (Auto) 0.1 % Neutrophils # (Auto) 25.83 K/uL Lymphocytes # (Auto) 0.87 K/uL Monocytes # (Auto) 1.18 K/uL Eosinophils # (Auto) 0.18 K/uL Basophils # (Auto) 0.02 K/uL RDW Standard Deviation 69.6 fL RDW Coefficient of Variation 21.2 % Immature Granulocyte % (Auto) 1.1 % Immature Granulocyte # (Auto) 0.30 K/uL Polychromasia 1+ Anisocytosis PRESENT Target Cells 1+ Ovalocytes 1+ Echinocytes 1+ Bedside Glucose 65 mg/dl 97 mg/dl Bedside Lactic Acid Venous 5.78 mmol/L Test 01/05/17 14:26 01/05/17 14:28 01/05/17 14:50 01/05/17 15:30 Bedside Glucose 92 mg/dl 87 mg/dl Sodium Level 129 mmol/L Potassium Level 5.1 mmol/L Chloride Level 95 mmol/L Carbon Dioxide Level 21 mmol/L Anion Gap 13.0 mmol/L Blood Urea Nitrogen 164 mg/dl Creatinine 6.10 mg/dl Est Creatinine Clear Calc Drug Dose 12.4 ml/min Estimated GFR () 9.4 Estimated GFR (Non- 8.1 BUN/Creatinine Ratio 26.9 Random Glucose 97 mg/dl Lactic Acid Level 5.7 mmol/L Calcium Level 8.6 mg/dl Magnesium Level 2.5 mg/dl Total Bilirubin 14.1 mg/dl Aspartate Amino Transf (AST/SGOT) 206 U/L Alanine Aminotransferase (ALT/SGPT) 73 U/L Alkaline Phosphatase 452 U/L Troponin I 0.068 ng/ml Total Protein 5.6 gm/dl Albumin 1.7 gm/dl Globulin 3.9 gm/dl Albumin/Globulin Ratio 0.4 Thyroid Stimulating Hormone (TSH) 0.896 uIu/ml Random Cortisol 25.94 mcg/dl Digoxin Level 0.6 ng/ml Diagnostic Results ABD/PELVIS NO IV OR ORAL CONT HISTORY:76 yearsMaleacute diffuse abdominal pain and general illness with concern for bowel obstruction COMPARISON: CT abdomen and pelvis 02/10/2016 TECHNIQUE: Multiple axial CT images of the abdomen and pelvis were obtained without contrast. FINDINGS: There is a moderate-sized right pleural effusion with subsegmental alveolar opacities of the bilateral lung bases. No pneumoperitoneum identified. There is enlargement of the inferior cardiac chambers with pacer leads noted. Coronary 2-year-old and mitral annulus calcifications are seen. Median sternotomy wires are partially imaged. There is streak artifact from placement of the patient's arms which limits the study. There is small volume of intra-abdominal intrapelvic ascites with moderate volume diffuse body wall edema. Skin thickening along the anterior abdominal wall is redemonstrated. Evaluation of the hepatic parenchyma is limited secondary to the above factors as well as lack of IV contrast. There is suggestion of several low attenuating hepatic lesions measuring close to 3 cm within the right hepatic lobe. These were not definitely identified on comparison study. The spleen and adrenal glands are within normal limits. There is at least moderate diffuse pancreatic atrophy. There is no renal calculi or hydronephrosis identified. There is marked circumferential wall thickening of the partially collapsed urinary bladder. There appears to be a small diverticulum or urachal remnant emanating from the dome of the urinary bladder which is best seen on the sagittal images. Prostate is mildly enlarged. There is extensive atherosclerotic plaquing of the abdominal and iliac vasculature. There is mild fusiform aneurysmal dilation of the infrarenal abdominal aorta, 3.1 x 2.7 cm. No bulky retroperitoneal adenopathy is seen. There are several loops of nondilated small bowel air-fluid leveling without evidence of obstruction. Noninflamed colonic diverticuli are seen. The appendix is partially imaged on image 299 and appears to be within normal limits. There is diffuse body wall edema which is moderate. Is diffuse sclerotic metastasis throughout the pelvis and spine is new from comparison. IMPRESSION: 1. Findings compatible with diffuse sclerotic metastasis to the imaged axial and appendicular skeletal system. These findings are suspicious for prostate cancer. 2. Suggested diffuse hepatic metastasis with mild amount of intra-abdominal and intrapelvic ascites. 3. Small right pleural effusion with subsegmental consolidation of the bilateral lung bases suggesting atelectasis or pneumonitis. 4. Circumferential wall thickening of the urinary bladder suggests cystitis. 5. Mild fusiform aneurysmal dilation of the infrarenal abdominal aorta, 3.1 cm. The above report was generated using voice recognition software. It may contain grammatical, syntax or spelling errors. Electronically signed by: Ranulfo Rubi M.D. 01/05/2017 2:56 PM Dictated Date/Time: 01/05/2017 2:45 PM The status of this report is Signed. Draft = Not yet reviewed or approved by Radiologist. Signed = Reviewed and approved by Radiologist. [~ rep ct add3]] CHEST ONE VIEW PORTABLE CLINICAL HISTORY: Weakness. Altered mental status. COMPARISON STUDY: 10/09/2016 FINDINGS: There are postsurgical changes of midline sternotomy and valvular replacement. A left subclavian pacer/defibrillator is evident. The heart remains enlarged. There is radiographic evidence of congestive failure with mild pulmonary edema. Small pleural effusions are suspected[ IMPRESSION: Worsening congestive failure. Electronically signed by: Willi Nance M.D. 01/05/2017 1:53 PM Dictated Date/Time: 01/05/2017 1:51 PM The status of this report is Signed. Draft = Not yet reviewed or approved by Radiologist. Signed = Reviewed and approved by Radiologist. Assessment & Plan Reason Critically Ill: Multi-system organ failure requiring vasoactive medication. PLAN: Neuro: Pain control, Tylenol when necessary Resp: Pleural effusion on the right * Supplemental oxygen as needed CV: Cardiomyopathy * Questionably sepsis related * Echocardiogram (formal) pending * Started on dobutamine, needs additional vasopressor * Will convert to Levophed, may require vasopressin Fluids/Renal: Renal failure * Nephrology consulted * Volume expansion with albumin, concern for volume overload * Lactic acidosis secondary to sepsis ID: Septic shock with unclear source * Cefepime started in the ED secondary to penicillin allergy * Penicillin allergy of unclear reaction * Vancomycin * Flagyl for anaerobic coverage * Clindamycin for staphylococcal toxin: Patient has small bullae on lower extremities question venous stasis versus staphylococcal scalded skin GI/Nutrition: Transaminitis Nothing by mouth as increasing vasopressor requirements Heme: Anemia * No indication for transfusion at this time Endocrine: Accu-Cheks per protocol Cortisol and TSH within limits I have personally spent 60 minutes of critical care time in the direct management of this patient. This is a life/limb threatening event. This includes time spent evaluating patient, direct bedside care, chart review, placing orders, interpretation of diagnostic studies, discussion with consultants, patient, and family members, as well as other required patient management activities. This time is exclusive of all separately billable procedures, and teaching time and separate from and in addition to any other critical care service time.
--- NOTE | 2017-01-05 16:43 | Procedure Note ---
Procedure Note Date of Service Jan 05, 2017. Procedure Note Critical Care Medicine Point of Care Bedside Ultrasound Procedure: Limited Transthoracic Echocardiogram Indication: Hypotension Date: 01/05/2017 Attending: Ten Castillo DO Fellow/Resident/Physician Lay Out Helper: Juliane Organs Examined: Heart, Vascular system Pericardial fluid: Absent Right ventricle size: Enlarged LV Contractility: Hypokinetic RV Contractility: Hypokinetic Mechanically ventilated breaths: No Hemodynamic Status: Heart rate 74, blood pressure 63/43 Impression: Hypokinetic left and right ventricles Plan: Dobutamine infusion, formal echocardiogram pending Procedure: Limited Bedside Lung Ultrasound Procedure Date: 01/05/2017 Indication: Evidence of volume overload Attending: Ten Castillo DO Resident/Physician Lay Out Helper: Juliane Organs Examined: Lung BLUE point (upper), BLUE point (lower), Phrenic Point (axillary), PLAPS point ( posterior) A lines visualized: Yes, Hemithorax: Bilateral anterior thorax B lines visualized: Yes, Hemithorax: Bilateral posterior thorax Lung Sliding: Yes, Hemithorax: Bilateral Tissue-like Sign: No, Hemithorax: Bilateral Shred Sign: No, Hemithorax: Bilateral Quad Sign: No, Hemithorax: Bilateral Sinusoid Sign: No, Hemithorax: Bilateral Type of effusions: No, Hemithorax: Bilateral Interpleural distance: Not applicable Impression: Mild pulmonary edema to the mid chest Plan: Await formal echo results Procedure: Limited to point compression test of the bilateral lower extremities Procedure Date: 01/05/2017 Indication: Cancer, bilateral leg swelling Attending: Ten Castillo DO Resident/Physician Lay Out Helper: Juliane Organs Examined: Bilateral common femoral veins, and bilateral popliteal veins Right common femoral vein: Compressible Left common femoral vein: Compressible left popliteal vein: Compressible right popliteal vein: Unable to visualize Impression: Negative to point compression test of left lower extremity, right lower extremity incompletely visualized Plan: Follow-up with formal venous duplex Images obtained are saved for permanent record
[2017-01-05] MEDS ORDERED: HEPARIN SOD 5000 UNIT/0.5 ML CARP SQ SCH (16:45)
[2017-01-05 17:16] LABS: MANUAL MICROSCOPIC REQUIRED? YES; REVIEW REQ? NO; SULFASALICYLIC ACID POS (NEG); URINE APPEARANCE CLOUDY (CLEAR); URINE COLOR BROWN; URINE SPECIFIC GRAVITY 1.023 (1.000-1.030)
[2017-01-05 17:21] LABS: URINE AMORPHOUS SEDIMENT PRESENT (NONE PRSENT); URINE BACTERIA 2+ (NEG); URINE RBC 0-4 /hpf (0-4)
--- NOTE | 2017-01-05 17:22 | History and Physical ---
History & Physical Date & Time of Service: Jan 05, 2017 at 16:49 Chief Complaint: General Illness Primary Care Physician: Octavio Bueno M.D. History of Present Illness Source: patient, family, clinic records This is a 76 year old male with a PMH of CAD s/p CABG, ischemic cardiomyopathy with EF < 20% s/p AICD, A. Fib, DM2, HTN - presents s/p fall - states he has been weak for the past few days; family noticed his jaundice/yellowing skin a few days prior as well. States he fell because he was not strong enough. He has noted some diarrhea as his only other symptom. Does state he has chronic back pain, but no acute issues to note. On presentation, w/up shows significant dehydration - as per family his appetite is lacking and worse in the past few days. Further w/up suggests metastatic cancer to liver and bone; Family states that he was told about a spot on his L kidney, but no further w/up was done. Past Medical/Surgical History Medical Problems: (1) A-fib Status: Chronic (2) [id number] renal failure Status: Resolved (3) Coronary arteriosclerosis Status: Chronic Family History Diabetes mellitus Heart disease Hypertension Social History Smoking Status: Former Smoker Drug Use: none Marital Status: Housing status: lives with family, assisted Occupational Status: retired, disabled Immunizations History of Influenza Vaccine: Yes History of Tetanus Vaccine?: Yes History of Pneumococcal: Yes Pneumococcal Date: Mar 22, 2010 History of Hepatitis B Vaccine: No Multi-Drug Resistant Organisms History of MDRO: No Allergies Coded Allergies: Zolpidem (Verified Allergy, Intermediate, SHORTNESS OF BREATH, 01/05/17) complaint of cough and shortness breath and itching Penicillins (Verified Allergy, Unknown, RASH, 01/05/17) Home Medications Scheduled Acetaminophen (Tylenol Arthritis Ext Rel), 650 MG PO Q8H Allopurinol (Allopurinol), 450 MG PO QAM Cholecalciferol (Vitamin D3), 1 TAB PO DAILY Cyanocobalamin (Vitamin B-12 1000 Mcg), 1,000 MCG PO DAILY Digoxin (Digoxin), 0.125 MG PO MWF Dutasteride (Avodart), 0.5 MG PO DAILY Insulin Aspart (Novolog Flexpen), 15 UNITS SQ WM Insulin Glargine (Lantus Solostar), 25 UNIT SC QPM Ipratropium-Albuterol (Combivent Respimat), 1 PUFFS INH BID Metoprolol Succ (Toprol Xl) (Toprol-Xl ), 100 MG PO BID Mometasone Furoate (Nasal) (Mometasone Furoate), 2 SPRAYS LESTER BID Simvastatin (Zocor), 20 MG PO QPM Spironolactone (Spironolactone), 12.5 MG PO MWF Torsemide (Demadex), 100 MG PO DAILY Zinc Gluconate (Zinc), 25 MG PO DAILY Scheduled PRN Clindamycin Hcl (Cleocin), 4 CAP PO UD PRN for dental work Nitroglycerin (Nitrostat), 0.4 MG UT UD PRN for Chest Pain Review of Systems Constitutional: + weakness, + fatigue, + problem reported (lack of appetite), No fever, No chills Eyes: No worsening of vision ENT: No hearing loss Respiratory: No cough, No sputum, No wheezing, No shortness of breath, No dyspnea on exertion Cardiovascular: + edema, No chest pain, No palpitations Abdomen: + pain, + nausea, + diarrhea, No vomiting, No constipation, No GI bleeding Musculoskeletal: + joint pain (low back pain) Genitourinary - Male: No hematuria, No dysuria, No urinary frequency, No urinary urgency Neurologic: + weakness, + balance problems Endocrine: + fatigue Hematologic / Lymphatic: No abnormal bleeding/bruising Integumentary: + rash (blistering on bilateral LE), + color change Physical Exam Vital Signs Date Time Temp Pulse Resp B/P (MAP) Pulse Ox O2 Delivery O2 Flow Rate FiO2 01/05/17 16:41 70 01/05/17 16:23 71 20 55/37 96 Nasal Cannula 3.0 01/05/17 15:16 63/43 NIBP 01/05/17 15:09 74 14 56/38 97 Room Air 2.5 01/05/17 14:45 75 14 140/108 95 Nasal Cannula 2.0 01/05/17 14:15 78 18 119/98 99 Nasal Cannula 2.0 01/05/17 13:33 95 Nasal Cannula 2.0 01/05/17 13:32 81 22 109/96 94 Nasal Cannula 2.0 01/05/17 13:20 36.5 80 16 88/39 91 Room Air 01/05/17 13:15 78 General Appearance: + mild distress, + pertinent finding (lethargic, jaundiced , ill-appearing; significant anasarca) Head: normocephalic, atraumatic ENT: hearing grossly normal Respiratory/Chest: no respiratory distress, no accessory muscle use Cardiovascular: regular rate, rhythm, no murmur Abdomen/GI: + tenderness, + distended, + pertinent finding (+anasarca) Extremities/Musculoskelatal: + swelling (+2 pitting edema b/l LE) Neurologic/Psych: alert Skin: + jaundice, + mottled, + pertinent finding (blistering of bilateral LE; bullae) Diagnostics Laboratory Results Results Past 24 Hours Test 01/05/17 13:38 01/05/17 13:40 01/05/17 13:42 01/05/17 14:10 Range/Units White Blood Count 28.38 4.8-10.8 K/uL Red Blood Count 3.23 4.7-6.1 M/uL Hemoglobin 10.5 14.0-18.0 g/dL Hematocrit 30.0 42-52 % Mean Corpuscular Volume 92.9 80-100 fL Mean Corpuscular Hemoglobin 32.5 25-34 pg Mean Corpuscular Hemoglobin Concent 35.0 32-36 g/dl Platelet Count 178 130-400 K/uL Mean Platelet Volume 10.3 7.4-10.4 fL Neutrophils (%) (Auto) 90.9 % Lymphocytes (%) (Auto) 3.1 % Monocytes (%) (Auto) 4.2 % Eosinophils (%) (Auto) 0.6 % Basophils (%) (Auto) 0.1 % Neutrophils # (Auto) 25.83 1.4-6.5 K/uL Lymphocytes # (Auto) 0.87 1.2-3.4 K/uL Monocytes # (Auto) 1.18 0.11-0.59 K/uL Eosinophils # (Auto) 0.18 0-0.5 K/uL Basophils # (Auto) 0.02 0-0.2 K/uL RDW Standard Deviation 69.6 36.4-46.3 fL RDW Coefficient of Variation 21.2 11.5-14.5 % Immature Granulocyte % (Auto) 1.1 % Immature Granulocyte # (Auto) 0.30 0.00-0.02 K/uL Polychromasia 1+ Anisocytosis PRESENT Target Cells 1+ Ovalocytes 1+ Echinocytes 1+ Bedside Glucose 65 97 70-99 mg/dl Bedside Lactic Acid Venous 5.78 0.90-1.70 mmol/L Test 01/05/17 14:26 01/05/17 14:28 01/05/17 14:50 01/05/17 15:30 Range/Units Bedside Glucose 92 87 70-99 mg/dl Sodium Level 129 136-145 mmol/L Potassium Level 5.1 3.5-5.1 mmol/L Chloride Level 95 98-107 mmol/L Carbon Dioxide Level 21 21-32 mmol/L Anion Gap 13.0 3-11 mmol/L Blood Urea Nitrogen 164 7-18 mg/dl Creatinine 6.10 0.60-1.40 mg/dl Est Creatinine Clear Calc Drug Dose 12.4 ml/min Estimated GFR () 9.4 Estimated GFR (Non- 8.1 BUN/Creatinine Ratio 26.9 10-20 Random Glucose 97 70-99 mg/dl Lactic Acid Level 5.7 0.4-2.0 mmol/L Calcium Level 8.6 8.5-10.1 mg/dl Magnesium Level 2.5 1.8-2.4 mg/dl Total Bilirubin 14.1 0.2-1 mg/dl Aspartate Amino Transf (AST/SGOT) 206 15-37 U/L Alanine Aminotransferase (ALT/SGPT) 73 12-78 U/L Alkaline Phosphatase 452 45-117 U/L Troponin I 0.068 0-0.045 ng/ml Total Protein 5.6 6.4-8.2 gm/dl Albumin 1.7 3.4-5.0 gm/dl Globulin 3.9 2.5-4.0 gm/dl Albumin/Globulin Ratio 0.4 0.9-2 Thyroid Stimulating Hormone (TSH) 0.896 0.300-4.500 uIu/ml Random Cortisol 25.94 mcg/dl Digoxin Level 0.6 0.8-2.0 ng/ml Test 01/05/17 16:20 Range/Units Bedside Glucose 90 70-99 mg/dl Microbiology Results 01/05/17 Blood Culture, Received Pending 01/05/17 Blood Culture, Received Pending 01/05/17 Urine Culture, Sadie Batch Pending Diagnostic Radiology CHEST ONE VIEW PORTABLE CLINICAL HISTORY: Weakness. Altered mental status. COMPARISON STUDY: 10/09/2016 FINDINGS: There are postsurgical changes of midline sternotomy and valvular replacement. A left subclavian pacer/defibrillator is evident. The heart remains enlarged. There is radiographic evidence of congestive failure with mild pulmonary edema. Small pleural effusions are suspected[ IMPRESSION: Worsening congestive failure. ABD/PELVIS NO IV OR ORAL CONT HISTORY:76 yearsMaleacute diffuse abdominal pain and general illness with concern for bowel obstruction COMPARISON: CT abdomen and pelvis 02/10/2016 TECHNIQUE: Multiple axial CT images of the abdomen and pelvis were obtained without contrast. FINDINGS: There is a moderate-sized right pleural effusion with subsegmental alveolar opacities of the bilateral lung bases. No pneumoperitoneum identified. There is enlargement of the inferior cardiac chambers with pacer leads noted. Coronary 2-year-old and mitral annulus calcifications are seen. Median sternotomy wires are partially imaged. There is streak artifact from placement of the patient's arms which limits the study. There is small volume of intra-abdominal intrapelvic ascites with moderate volume diffuse body wall edema. Skin thickening along the anterior abdominal wall is redemonstrated. Evaluation of the hepatic parenchyma is limited secondary to the above factors as well as lack of IV contrast. There is suggestion of several low attenuating hepatic lesions measuring close to 3 cm within the right hepatic lobe. These were not definitely identified on comparison study. The spleen and adrenal glands are within normal limits. There is at least moderate diffuse pancreatic atrophy. There is no renal calculi or hydronephrosis identified. There is marked circumferential wall thickening of the partially collapsed urinary bladder. There appears to be a small diverticulum or urachal remnant emanating from the dome of the urinary bladder which is best seen on the sagittal images. Prostate is mildly enlarged. There is extensive atherosclerotic plaquing of the abdominal and iliac vasculature. There is mild fusiform aneurysmal dilation of the infrarenal abdominal aorta, 3.1 x 2.7 cm. No bulky retroperitoneal adenopathy is seen. There are several loops of nondilated small bowel air-fluid leveling without evidence of obstruction. Noninflamed colonic diverticuli are seen. The appendix is partially imaged on image 299 and appears to be within normal limits. There is diffuse body wall edema which is moderate. Is diffuse sclerotic metastasis throughout the pelvis and spine is new from comparison. IMPRESSION: 1. Findings compatible with diffuse sclerotic metastasis to the imaged axial and appendicular skeletal system. These findings are suspicious for prostate cancer. 2. Suggested diffuse hepatic metastasis with mild amount of intra-abdominal and intrapelvic ascites. 3. Small right pleural effusion with subsegmental consolidation of the bilateral lung bases suggesting atelectasis or pneumonitis. 4. Circumferential wall thickening of the urinary bladder suggests cystitis. 5. Mild fusiform aneurysmal dilation of the infrarenal abdominal aorta, 3.1 cm. EKG AV dual-paced rhythm with fusion beats Abnormal ECG Impression Assessment and Plan This is a 76 year old male with a PMH of CAD s/p CABG, ischemic cardiomyopathy with EF < 20% s/p AICD, A. Fib, DM2, HTN; presents with fall; critically ill; multi-organ failure, sepsis and hypotension Sepsis and Hypotension patient presents with what appears to be severe sepsis significant hypotension on admission, leukocytosis and lactic acidosis also present unsure if this is urinary tract in nature, CT suggests possible acute cystitis UA pending appreciate critical care consultation will admit to ICU dobutamine to be started for hypotension intravascular depleted, so agree with the bolus of 1L; start gentle hydration will check lactic acid q4 CBC daily agree with broad spectrum antibiotics; as per geographical historian, will likely do Zosyn , Vanco, and Clinda; 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 of hematuria; has seen urology in the past UA pending CT suggests mets to the bone and liver low protein likely causing third spacing for now, dobutamine and IVFs for intravascular repletion may need albumin; will hold off for now will need oncological evaluation for prognosis agree with checking CT chest for possible above diaphragm mets - pending Acute Kidney Injury superimposed on CKD, possibly stage 3-4 at baseline significant dehydration; gentle hydration creatinine significant bump to >6 monitor for fluid overload, but will need intravascular fluid increase Ischemic Cardiomyopathy with EF < 20% repeat echo as per geographical historian hold diuretics for now gentle hydration, monitor for fluid overload DVT ppx subq heparin; INR pending FULL CODE VTE Prophylaxis VTE Risk Assessment Done? Y/N: Yes Risk Level: High
[2017-01-05 17:23] LABS: URINE GRANULAR CAST 0-3 /lpf (0)
--- NOTE | 2017-01-05 17:32 | DIAGNOSTIC IMAGING REPORT ---
CT OF THE CHEST WITHOUT IV CONTRAST CLINICAL HISTORY: Sepsis. COMPARISON STUDY: Chest radiographs October 11, 2016 and January 05, 2017. CT DOSE: 1037.47 mGy.cm TECHNIQUE: Axial images of the chest were obtained without IV contrast. Images were reviewed in the axial, sagittal, and coronal planes. IV contrast was not administered for this examination. FINDINGS: Note is made of median sternotomy wires, a left subclavian pacer and prosthetic mitral valve. The heart is moderately enlarged. There is no pericardial effusion. Central airways are patent. No enlarged axillary, mediastinal or hilar lymph nodes are present. Lungs are suboptimally assessed due to respiratory motion. Moderate right and small left pleural effusions are seen. Associated airspace opacities are present. There is no pneumothorax. Numerous blastic skeletal lesions are noted, including a 2 cm T2 vertebral body lesion and a 4.8 cm manubrial lesion. Visualized portions of the upper abdomen demonstrate a small amount of perihepatic ascites. The liver appears cirrhotic. Multiple hypodense hepatic lesions are noted, including a 5.2 cm segment 7 lesion and a 4.8 cm segment 8 lesion. Extensive bilateral gynecomastia is noted. IMPRESSION: 1. Numerous sclerotic skeletal lesions highly suggestive of blastic metastases. 2. Multiple hypodense hepatic lesions. These are suboptimally assessed on this unenhanced exam but suggestive of a neoplastic process and favor metastatic disease. Suspected cirrhosis with small amount of perihepatic ascites. 3. Moderate right and trace left pleural effusions. Associated airspace opacities favor atelectasis although an infectious process could appear similar. 4. Mild pulmonary edema. Electronically signed by: Stone Mendiola M.D. 01/05/2017 5:31 PM Dictated Date/Time: 01/05/2017 5:17 PM
[2017-01-05] MEDS ORDERED: DIGOXIN 0.125 MG TAB PO SCH (18:00)
[2017-01-05] MEDS ORDERED: NOREPINEPHRINE BIT INJ 8 MG in DEXTROSE 5% 500ML 500 ML IV STA (18:34)
--- NOTE | 2017-01-05 18:38 | DIAGNOSTIC IMAGING REPORT ---
CHEST ONE VIEW PORTABLE CLINICAL HISTORY: confirm IJ placement COMPARISON STUDY: Chest radiograph and chest CT performed earlier today. FINDINGS: Note is made of interval placement of a right internal jugular central line. Catheter tip projects over the SVC. There is no pneumothorax. Bilateral pleural effusions are noted. Interstitial thickening suggests pulmonary edema. There are hazy bibasilar opacities. There is a left pacer/AICD and prosthetic mitral valve. Cardiomegaly is noted. IMPRESSION: 1. No pneumothorax following placement of a right internal jugular central line. Catheter tip projects over the SVC. 2. Bilateral pleural effusions with suspected mild pulmonary edema. Electronically signed by: Stone Mendiola M.D. 01/05/2017 6:36 PM Dictated Date/Time: 01/05/2017 6:35 PM
--- NOTE | 2017-01-05 18:45 | Procedure Note ---
Procedure Note Procedure Date Jan 05, 2017. Procedure Description Procedure Name: Left radial arterial line Procedure time out: side/site verified, patient ID confirmed, correct procedure Consent obtained: written Time of procedure: 17:00 Performed by: attending Indications: diagnostic Contraindications: none Description: Patient was prepped with chlorhexidine and draped in sterile fashion, 2 mL's of 1% lidocaine was instilled for anesthesia. A 20-gauge radial catheter was inserted via modified Seldinger technique into the left radial artery. Good blood return was noted, the patient tolerated the procedure well. Dynamic ultrasound guidance was employed Complications: none Patient tolerated procedure: well Post-procedure vital signs: reviewed and stable Central Line Procedure time out: side/site verified, patient ID confirmed, sterile procedure used Consent obtained: written Time of procedure: 17:30 Performed by: attending Indications: central drug admin. Prep: chlorhexadine prep Anesthesia: local injection, lidocaine 1% without epi (3 mL's) Volume anesthetic (ml's): 3 Central line lumen: triple Central line location: internal jugular (R) Additional details: percutaneous placement, ultrasound guidance, Selinger technique used, line sutured, good blood return CXR: appropriate position Complications: none Patient tolerated procedure: well Post-procedure vital signs: reviewed and stable Comments: Critical Care Medicine Point of Care Bedside Ultrasound Procedure: Procedural Ultrasound Procedure Date: 01/05/2017 Indication: Central venous access Attending: Ten Castillo DO Artery AND Vein visualized: Yes Compressible Vein: Yes Guidewire or Short Catheter seen in vein prior to dilation: Yes Line confirmed in Vein with ultrasound: Yes Lung Sliding on side of attempt (if applicable): NA If no lung sliding or not obtained has CXR been ordered: Yes Impression: Successful placement of right subclavian central venous catheter Plan: Reviewed chest x-ray, no pneumothorax adequate position Images obtained are saved for permanent record
[2017-01-05] MEDS: SODIUM CHLORIDE 0.9% 1000ML 1,000 ML IV SCH (18:50)
[2017-01-05] MEDS ORDERED: ALBUMIN HUMAN 25% 12.5 GM/50 ML VIAL IV ONE (19:15)
[2017-01-05] MEDS: NOREPINEPHRINE BIT INJ 8 MG in DEXTROSE 5% 500ML 500 ML IV PRN ×2 (19:17→21:19)
[2017-01-05] MEDS: HYDROmorphone HCL 2 MG TAB PO PRN (19:54)
[2017-01-05] MEDS: CLINDAMYCIN IV 900 MG in DEXTROSE 5% 100ML 100 ML IV SCH (19:55)
[2017-01-05] MEDS ORDERED: METOCLOPRAMIDE HCL INJ 5 MG/ML 2 ML VIAL ONE (20:06)
[2017-01-05] MEDS ORDERED: METOCLOPRAMIDE HCL INJ 5 MG/ML 2 ML VIAL IV PRN (20:15)
--- NOTE | 2017-01-05 22:40 | DIAGNOSTIC IMAGING REPORT ---
BILATERAL LOWER EXTREMITY VENOUS DOPPLER CLINICAL HISTORY: Leg swelling. Cancer. COMPARISON STUDY: No previous studies for comparison. TECHNIQUE: Sonography of the deep venous system of the bilateral lower extremities was performed. Compression and augmentation were evaluated. FINDINGS: Evaluation was suboptimal due to difficulty positioning. The common femoral, superficial femoral and popliteal veins were compressible. Augmentation was normal. Flow was shown within the deep calf vessels. Note was made of an 8.3 x 4.9 x 3.6 cm hypoechoic abnormality within the right popliteal fossa. No color flow was identified within this finding. IMPRESSION: 1. No evidence of deep venous thrombus within the bilateral lower extremities. 2. 8.3 x 4.9 x 3.6 cm hypoechoic abnormality within the right popliteal fossa without color flow. This is nonspecific and could reflect a complex popliteal cyst, hematoma or less likely mass. Electronically signed by: Stone Mendiola M.D. 01/05/2017 10:39 PM Dictated Date/Time: 01/05/2017 10:36 PM
[2017-01-06] VITALS (31 sets, daily range): BP systolic 30–243; BP diastolic 2–228; PULSE 74–92; TEMP 36.6; O2SAT 85–95
[2017-01-06] MEDS: NOREPINEPHRINE BIT INJ 16 MG in DEXTROSE 5% 500ML 500 ML IV PRN ×4 (00:39→09:36)
[2017-01-06 01:21] LABS: CKMB/CK RATIO 4.2 (0-3.0)
[2017-01-06] MEDS: METOCLOPRAMIDE HCL INJ 5 MG/ML 2 ML VIAL IV PRN ×2 (04:03→10:07)
[2017-01-06] MEDS: CLINDAMYCIN IV 900 MG in DEXTROSE 5% 100ML 100 ML IV SCH ×2 (04:04→11:54)
[2017-01-06 04:16] LABS: HEMATOCRIT 27.2 % (42-52); MEAN CELL VOLUME 95.4 fL (80-100); MEAN CORPUSCULAR HGB CONC 34.6 g/dl (32-36); MEAN PLATELET VOLUME 12.3 fL (7.4-10.4); PLATELET COUNT 268 K/uL (130-400); RED BLOOD COUNT 2.85 M/uL (4.7-6.1); WHITE BLOOD COUNT 32.07 K/uL (4.8-10.8)
[2017-01-06 04:54] LABS: ALB/GLOB RATIO 0.5 (0.9-2); CALCIUM 8.3 mg/dl (8.5-10.1); CREATININE 6.4 mg/dl (0.60-1.40); MAGNESIUM 2.5 mg/dl (1.8-2.4); PHOSPHORUS 7.3 mg/dl (2.5-4.9); POTASSIUM 5.4 mmol/L (3.5-5.1)
[2017-01-06 05:11] LABS: ANISOCYTOSIS PRESENT; BASO % 0.1 %; BASO ABS # 0.03 K/uL (0-0.2); COMPLETE YES; ECHINOCYTES 3+; EOS % 0.2 %; IG% 0.7 %; LYMPH % 2.5 %; MONO % 5.7 %; NEUT % 90.8 %; PLT ESTIMATE NORMAL; SPHEROCYTE OCCASIONAL; TARGET CELLS 1+; VACUOLIZATION 2+
[2017-01-06] MEDS ORDERED: VASOPRESSIN INJ 50 UNITS in SODIUM CHLORIDE 0.9% 500ML 500 ML IV PRN (05:24)
[2017-01-06] MEDS ORDERED: ALBUMIN HUMAN 5% 12.5 GM/250 ML VIAL IV ONE (05:30)
[2017-01-06] MEDS ORDERED: THIAMINE HCL INJ 500 MG in SODIUM CHLORIDE 0.9% 50ML 50 ML IV SCH (06:00)
[2017-01-06] MEDS: SODIUM CHLORIDE 0.9% 1000ML 1,000 ML IV SCH (06:00)
--- NOTE | 2017-01-06 07:12 | Nephrology Consultation ---
Nephrology Consultation Date of Consultation: Jan 06, 2017. Attending Physician: Maxine Reason for Consultation: FIDENCIO History of Present Illness Patient is a 76 year old male who follows with me in clinic. last seen 10/03/16- at that time, creatinine was 1.9 with 300mg of proteinuria from diabetes, htn and advanced age with valvular heart disease contributing as well. no tobacco. no nsaids. no myeloma. has a history of cabg with ef<20% with hx of afib with pacemaker/defibrillator. pt with presumed renal cell carcinoma and treatment was nephrectomy. Secondary to comorbidites, he was unlikely to survive the surgery. He was evaluated in the last year by both Dr. Reyes of [facility] and Dr. Gilmore of [facility], both of which recommended hospice/ palliative care at that time. Pt said in the office when its his time, its his time to go. pt presented during this admission with weakness, jaundice with fidencio and elevated liver enzymes with hypotension. pt admitted to icu and had line placed and now on three pressors. imaging shows diffuse sclerotic metastasis suspicous for prostate cancer with diffuse hepatic mets. despite our best efforts, pt is actively dying at this time. Past Medical/Surgical History Medical Problems: (1) Acute exacerbation of CHF (congestive heart failure) Status: Acute (2) Acute renal failure Status: Acute (3) Alkaline phosphatase raised Status: Acute (4) Anemia Status: Acute (5) Bleeding from varicose vein Status: Acute (6) Cardiomegaly Status: Acute (7) CHF (congestive heart failure) Status: Acute (8) Dehydration Status: Acute (9) Heme positive stool Status: Acute (10) Hypoglycemia Status: Acute (11) Hypotension Status: Acute (12) Left leg cellulitis Status: Acute (13) Leukocytosis Status: Acute (14) Metastatic cancer Status: Acute (15) Nosebleed Status: Acute (16) Renal insufficiency Status: Acute (17) Right upper quadrant abdominal pain Status: Acute (18) Sacral decubitus ulcer Status: Acute (19) Sludge in gallbladder Status: Acute (20) Total bilirubin, elevated Status: Acute (21) Vomiting Status: Acute (22) Weakness Status: Acute CKD stage 3 Afib Diabetes 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% gout htn presumed renal cell carcinoma Past Surgical history CABGx3 AICD Mitral Valve Repair Family History Diabetes mellitus Heart disease Hypertension Social History Smoking Status: Former Smoker Drug Use: none Marital Status: Occupation Status: retired, disabled Allergies Coded Allergies: Zolpidem (Verified Allergy, Intermediate, SHORTNESS OF BREATH, 01/05/17) complaint of cough and shortness breath and itching Penicillins (Verified Allergy, Unknown, RASH, 01/05/17) Medications Current Inpatient Medications Medications (Trade) Dose Ordered Sig/Ilya Route Start Time Stop Time Status Last Admin Dose Admin Hydromorphone HCl (Dilaudid Tab) 0.5 mg Q4H PRN PO 01/05/17 16:45 01/19/17 16:44 01/05/17 19:54 0.5 MG Digoxin (Lanoxin Tab) 0.125 mg MoWeFr@1600 PO 01/05/17 18:00 02/04/17 17:59 01/05/17 18:40 0.125 MG Miscellaneous Information (Order Awaiting Action) 1 ea QS N/A 01/06/17 00:00 02/05/17 00:00 Miscellaneous Information (Order Awaiting Action) 1 ea QS N/A 01/06/17 00:00 02/05/17 00:00 Sodium Chloride 1,000 ml @ 80 mls/hr [id number] IV 01/05/17 17:15 02/04/17 17:14 01/06/17 06:00 80 MLS/HR Dobutamine HCl 0 ml @ 0 mls/hr Q0M PRN IV 01/05/17 18:00 02/04/17 17:59 01/06/17 00:37 33 MLS/HR Clindamycin Phosphate 900 mg/ Dextrose 106 ml @ 100 mls/hr Q8H IV 01/05/17 20:00 01/07/17 19:59 01/06/17 04:04 100 MLS/HR Norepinephrine Bitartrate 16 mg/ Dextrose 516 ml @ 0 mls/hr Q0M PRN IV 01/06/17 00:30 02/05/17 00:29 01/06/17 06:03 165 MLS/HR Metoclopramide HCl (Reglan Inj) 10 mg Q4H PRN IV 01/06/17 04:15 02/04/17 20:14 01/06/17 04:03 10 MG Heparin Sodium (Porcine) (Heparin 10 Unit/ ml 5 ml Flush) 5 ml PRN PRN FLUSH 01/06/17 02:45 02/05/17 02:44 Vasopressin 50 units/Sodium Chloride 502.5 ml @ 24 mls/hr [id number] PRN IV 01/06/17 05:24 02/05/17 05:23 01/06/17 06:01 24 MLS/HR Thiamine HCl 500 mg/Sodium Chloride 55 ml @ 208 mls/hr Q8H IV 01/06/17 06:00 01/08/17 22:16 01/06/17 06:01 208 MLS/HR Insulin Glargine (Lantus Solostar Pen) 20 units QPM SC 01/06/17 21:00 02/05/17 20:59 Insulin Glargine (Lantus Solostar Pen) 20 units TODAY@0730 ONCE SC 01/06/17 07:30 01/06/17 07:31 Insulin Aspart (novoLOG ASPART) SLIDING SCALE G... ACHS SC 01/06/17 06:45 02/05/17 06:44 Home Meds and Scripts Medications Dose Route/Sig Max Daily Dose Days Date Category Dose Instructions Demadex (Torsemide) 100 Mg Tab 100 Mg PO DAILY 01/05/17 Reported Mometasone Furoate (Mometasone Furoate (Nasal)) 50 Mcg/Act Spr 2 Sprays LESTER BID 10/11/16 Reported Zocor (Simvastatin) 40 Mg Tab 20 Mg PO QPM 10/11/16 Reported 1/2'S 40MG TABS FOR 20MG DOSE Combivent Respimat (Ipratropium-Albuterol) 1 Aer Aer 1 Puffs INH BID 10/11/16 Reported Novolog Flexpen (Insulin Aspart) 100 Units/Ml Inj 15 Units SQ WM 10/11/16 Reported Digoxin 0.125 Mg Tab 0.125 Mg PO MWF 10/11/16 Reported Tylenol Arthritis Ext Rel (Acetaminophen) 650 Mg Cplt 650 Mg PO Q8H 10/11/16 Reported Cleocin (Clindamycin Hcl) 150 Mg Cap 4 Cap PO UD PRN 05/24/16 Reported take 600mg 1 hour prior to dental work Vitamin D3 (Cholecalciferol) 1,000 Unit Tab 1 Tab PO DAILY 90 12/3/16 Reported Avodart (Dutasteride) 0.5 Mg Cap 0.5 Mg PO DAILY 05/24/16 Reported Vitamin B-12 1000 Mcg (Cyanocobalamin) 1,000 Mcg Tab 1,000 Mcg PO DAILY 05/24/16 Reported Lantus Solostar (Insulin Glargine) 100 Unit/Ml Inj 25 Unit SC QPM 02/10/16 Reported DEPENDING ON B.S., SOMETIMES ONLY NEED 35UNITS QPM Spironolactone 25 Mg Tab 12.5 Mg PO MWF 10/27/14 Reported Toprol-Xl (Metoprolol Succinate) 100 Mg Tabcr 100 Mg PO BID 10/27/14 Reported Allopurinol 300 Mg Tab 450 Mg PO QAM 10/27/14 Reported 1.5 tablet dose Zinc (Zinc Gluconate) 50 Mg Tab 25 Mg PO DAILY 09/03/14 Reported 1/2 tablet dose Nitrostat (Nitroglycerin) 0.4 Mg Tab 0.4 Mg UT UD PRN 09/03/14 Reported Review of Systems Constitutional: + weight loss, + fatigue Eyes: No worsening of vision ENT: No hearing loss Respiratory: + shortness of breath Cardiac: + edema, No chest pain Abdomen: + diarrhea, No nausea, No vomiting Skin: + rash Physical Exam Date Time Temp Pulse Resp B/P (MAP) Pulse Ox O2 Delivery O2 Flow Rate FiO2 01/06/17 06:19 88 (51) 92 100/33 94/44 01/06/17 06:03 86 (49) 90 76/24 86/46 01/06/17 05:03 36.6 83 78/17 (37) 92 01/06/17 05:03 83 (32) 92 78/17 110/44 01/06/17 05:00 84 (33) 91 79/11 01/06/17 05:00 84 79/11 (33) 91 01/06/17 04:45 81 95/19 (44) 93 01/06/17 04:45 81 (36) 93 95/19 01/06/17 04:15 82 30/2 (11) 93 01/06/17 04:03 83 (63) 92 101/33 101/36 01/06/17 04:03 83 101/36 (57) 92 01/06/17 04:00 89 95/24 (47) 92 01/06/17 04:00 Room Air 7/18/17 04:00 89 (44) 92 95/24 18 03:45 85 243/228 (233) 92 18 03:30 91 (44) 89 95/29 01/06/17 03:30 91 95/29 (51) 89 18 03:15 85 107/24 (51) 92 18 03:15 85 (42) 92 107/24 01/06/17 03:03 84 113/24 (53) 95 01/06/17 03:03 84 (43) 95 113/24 121/48 01/06/17 03:00 77 109/24 (52) 94 01/06/17 03:00 77 (42) 94 109/24 01/06/17 02:52 85 99/52 (68) 93 01/06/17 02:46 81 (46) 93 111/19 01/06/17 02:31 80 (47) 93 106/30 01/06/17 02:16 78 (52) 93 118/34 01/06/17 02:04 87 105/39 (61) 85 18 02:04 87 (42) 85 105/49 /39 01/06/17 02:01 83 (50) 91 107/31 01/06/17 02:00 83 20 112/27 (55) 91 01/06/17 01:46 86 (50) 94 123/30 01/06/17 01:31 74 (47) 94 112/29 01/06/17 01:16 86 (50) 93 124/30 01/06/17 01:05 85 106/29 (54) 92 18/17 01:05 85 (47) 92 106/29 104/85 18 01:00 85 107/27 (53) 94 18/ 00:46 79 (42) 93 108/25 18/ 00:31 88 (46) 93 111/27 18/17 00:16 87 (48) 92 98/28 1817 00:04 86 18 92/33 (52) 93 01/06/17 00:04 86 (50) 92/33 109/70 01/06/17 00:00 86 113/28 (56) 91 01/05/17 23:59 Room Air 01/05/17 22:30 85 (43) 91 79/21 01/05/17 22:15 88 (45) 92 99/28 01/05/17 22:00 91 18 101/31 (54) 93 01/05/17 22:00 91 (50) 93 101/31 01/05/17 21:45 85 (51) 92 109/32 01/05/17 21:30 87 (58) 92 129/35 17 21:15 86 (50) 93 87/32 17 21:04 88 (53) 93 113/33 99/48 01/05/17 21:04 88 113/33 (59) 93 01/05/17 21:00 88 117/33 (61) 92 01/05/17 21:00 88 (54) 92 117/33 01/05/17 20:45 87 (52) 93 115/32 01/05/17 20:30 90 (53) 93 108/34 01/05/17 20:15 89 (50) 90 100/32 01/05/17 20:00 89 (54) 93 112/33 01/05/17 20:00 36.4 89 18 112/33 (59) 93 01/05/17 20:00 Room Air 01/05/17 19:45 85 (34) 91 56/24 01/05/17 19:30 80 (46) 92 96/29 01/05/17 19:15 82 (37) 91 67/26 01/05/17 19:03 77 69/28 (42) 92 01/05/17 19:03 77 (37) 92 69/28 /29 01/05/17 19:00 81 75/29 (44) 92 01/05/17 18:45 79 66/25 (39) 92 17 18:40 77 17 18:30 81 76/26 (43) 92 17 18:15 82 79/29 (46) 95 17 18:03 82 74/28 (43) 97 17 18:00 74 88/30 (49) 97 01/05/17 17:37 76 23 76/37 95 Nasal Cannula 3.0 01/05/17 17:01 85 20 60/35 96 Nasal Cannula 3.0 01/05/17 16:41 70 01/05/17 16:23 71 20 55/37 96 Nasal Cannula 3.0 01/05/17 15:16 63/43 NIBP 01/05/17 15:09 74 14 56/38 97 Room Air 2.5 01/05/17 14:45 75 14 140/108 95 Nasal Cannula 2.0 01/05/17 14:15 78 18 119/98 99 Nasal Cannula 2.0 01/05/17 13:33 95 Nasal Cannula 2.0 01/05/17 13:32 81 22 109/96 94 Nasal Cannula 2.0 01/05/17 13:20 36.5 80 16 88/39 91 Room Air 01/05/17 13:15 78 General Appearance: + moderate distress, + pertinent finding (+jaundice) Eyes: normal inspection ENT: normal ENT inspection Neck: supple Respiratory/Chest: + decreased breath sounds, + crackles Cardiovascular: regular rate, rhythm, + pertinent finding (+paced) Abdomen: normal bowel sounds, non tender, soft Extremities: + pedal edema Neurologic/Psych: + pertinent finding (poor memory) Skin: + jaundice Diagnostics Last 24 Hours Test 01/05/17 13:38 01/05/17 13:40 01/05/17 13:42 01/05/17 14:10 White Blood Count 28.38 K/uL Red Blood Count 3.23 M/uL Hemoglobin 10.5 g/dL Hematocrit 30.0 % Mean Corpuscular Volume 92.9 fL Mean Corpuscular Hemoglobin 32.5 pg Mean Corpuscular Hemoglobin Concent 35.0 g/dl Platelet Count 178 K/uL Mean Platelet Volume 10.3 fL Neutrophils (%) (Auto) 90.9 % Lymphocytes (%) (Auto) 3.1 % Monocytes (%) (Auto) 4.2 % Eosinophils (%) (Auto) 0.6 % Basophils (%) (Auto) 0.1 % Neutrophils # (Auto) 25.83 K/uL Lymphocytes # (Auto) 0.87 K/uL Monocytes # (Auto) 1.18 K/uL Eosinophils # (Auto) 0.18 K/uL Basophils # (Auto) 0.02 K/uL RDW Standard Deviation 69.6 fL RDW Coefficient of Variation 21.2 % Immature Granulocyte % (Auto) 1.1 % Immature Granulocyte # (Auto) 0.30 K/uL Polychromasia 1+ Anisocytosis PRESENT Target Cells 1+ Ovalocytes 1+ Echinocytes 1+ Bedside Glucose 65 mg/dl 97 mg/dl Bedside Lactic Acid Venous 5.78 mmol/L Test 01/05/17 14:26 01/05/17 14:28 01/05/17 14:50 01/05/17 16:20 Bedside Glucose 92 mg/dl 87 mg/dl 90 mg/dl Prothrombin Time 27.0 SECONDS Prothromb Time International Ratio 2.4 Activated Partial Thromboplast Time 55.5 SECONDS Partial Thromboplastin Ratio 2.1 Sodium Level 129 mmol/L Potassium Level 5.1 mmol/L Chloride Level 95 mmol/L Carbon Dioxide Level 21 mmol/L Anion Gap 13.0 mmol/L Blood Urea Nitrogen 164 mg/dl Creatinine 6.10 mg/dl Est Creatinine Clear Calc Drug Dose 12.4 ml/min Estimated GFR () 9.4 Estimated GFR (Non- 8.1 BUN/Creatinine Ratio 26.9 Random Glucose 97 mg/dl Lactic Acid Level 5.7 mmol/L Calcium Level 8.6 mg/dl Magnesium Level 2.5 mg/dl Total Bilirubin 14.1 mg/dl Aspartate Amino Transf (AST/SGOT) 206 U/L Alanine Aminotransferase (ALT/SGPT) 73 U/L Alkaline Phosphatase 452 U/L Troponin I 0.068 ng/ml Total Protein 5.6 gm/dl Albumin 1.7 gm/dl Globulin 3.9 gm/dl Albumin/Globulin Ratio 0.4 Procalcitonin 3.90 ng/ml Thyroid Stimulating Hormone (TSH) 0.896 uIu/ml Random Cortisol 25.94 mcg/dl Digoxin Level 0.6 ng/ml Test 01/05/17 16:40 01/05/17 20:01 01/05/17 23:33 01/05/17 23:44 Urine Color BROWN Urine Appearance CLOUDY Urine pH Urine Specific Brewster 1.023 Urine Protein POS Urine Glucose (UA) Urine Ketones Urine Occult Blood Urine Nitrite Urine Bilirubin Urine Urobilinogen Urine Leukocyte Esterase Urine RBC 0-4 /hpf Urine WBC 1-5 /hpf Urine Epithelial Cells 20-30 /lpf Urine Amorphous Sediment PRESENT Urine Bacteria 2+ Urine Granular Casts 0-3 /lpf Lactic Acid Level 7.8 mmol/L 9.6 mmol/L Bedside Glucose 236 mg/dl Test 01/06/17 00:41 01/06/17 03:43 01/06/17 04:15 Total Creatine Kinase 261 U/L Creatine Kinase MB 10.9 ng/ml Creatine Kinase MB Ratio 4.2 Troponin I 0.193 ng/ml White Blood Count 32.07 K/uL Red Blood Count 2.85 M/uL Hemoglobin 9.4 g/dL Hematocrit 27.2 % Mean Corpuscular Volume 95.4 fL Mean Corpuscular Hemoglobin 33.0 pg Mean Corpuscular Hemoglobin Concent 34.6 g/dl Platelet Count 268 K/uL Mean Platelet Volume 12.3 fL Neutrophils (%) (Auto) 90.8 % Lymphocytes (%) (Auto) 2.5 % Monocytes (%) (Auto) 5.7 % Eosinophils (%) (Auto) 0.2 % Basophils (%) (Auto) 0.1 % Neutrophils # (Auto) 29.11 K/uL Lymphocytes # (Auto) 0.80 K/uL Monocytes # (Auto) 1.84 K/uL Eosinophils # (Auto) 0.06 K/uL Basophils # (Auto) 0.03 K/uL RDW Standard Deviation 72.8 fL RDW Coefficient of Variation 21.4 % Immature Granulocyte % (Auto) 0.7 % Immature Granulocyte # (Auto) 0.23 K/uL Nucleated RBC Absolute Count (auto) 0.06 K/uL Nucleated Red Blood Cells % 0.2 % Toxic Vacuolation 2+ Platelet Estimate NORMAL Anisocytosis PRESENT Spherocytes OCCASIONAL Pappenheimer Bodies 1+ Target Cells 1+ Echinocytes 3+ Lactic Acid Level 10.6 mmol/L Sodium Level 125 mmol/L Potassium Level 5.4 mmol/L Chloride Level 91 mmol/L Carbon Dioxide Level 13 mmol/L Anion Gap 21.0 mmol/L Blood Urea Nitrogen 160 mg/dl Creatinine 6.40 mg/dl Est Creatinine Clear Calc Drug Dose 11.6 ml/min Estimated GFR () 8.9 Estimated GFR (Non- 7.7 BUN/Creatinine Ratio 25.0 Random Glucose 258 mg/dl Calcium Level 8.3 mg/dl Phosphorus Level 7.3 mg/dl Magnesium Level 2.5 mg/dl Total Bilirubin 14.0 mg/dl Aspartate Amino Transf (AST/SGOT) 256 U/L Alanine Aminotransferase (ALT/SGPT) 84 U/L Alkaline Phosphatase 419 U/L Total Protein 5.4 gm/dl Albumin 1.8 gm/dl Globulin 3.6 gm/dl Albumin/Globulin Ratio 0.5 Assessment & Plan fidencio-creatinine at baseline is 1.9 and creatinine was in the 6 range and worsening. pt does not want dialysis and never wanted dialysis. would not recommend dialysis in this patient. hyponatremia-likely from volume overload and unfortunately needs fluids/ pressors to maintain blood pressure. sodium levels may continue to worsen since primary goal is bp support at this time. hyperkalemia-k trending up and is now 5.4. likely a consequence of the worsening renal failure. Lactic acidosis-pt continues to have worsening acidosis in the setting of multi organ failure with hypotension requiring three pressors. continue supportive measures. pt with leukocytosis, lactic acidosis, blood cultures and urine cultures are pending. pt had a dose of cefepime and now on clindamycin. pt with presumed metastatic cancer with fidencio, septic shock and worsening acidosis. Strongly recommending hospice today. Pt likely to pass away today.
[2017-01-06] MEDS ORDERED: SODIUM CHLORIDE 0.9% 1000ML 1,000 ML IV SCH (07:15)
[2017-01-06] MEDS ORDERED: INSULIN GLARGINE SOLOSTAR 100 UNITS/ML 3 ML PEN SC ONE (07:30)
[2017-01-06] MEDS ORDERED: VANCOMYCIN CONSULT ACTIVE PRN (07:45)
[2017-01-06] MEDS: INSULIN ASPART 100 UNITS/ML 3 ML PEN SC SCH ×2 (07:47→11:00)
[2017-01-06] MEDS: AVODART-ORDER AWAITING ACTION SCH ×2 (08:00)
[2017-01-06] MEDS ORDERED: VANCOMYCIN INJ 1,000 MG in SODIUM CHLORIDE 0.9% 250ML 250 ML IV ONE (08:00)
[2017-01-06] MEDS ORDERED: METRONIDAZOLE 500MG / NSS IV SCH (08:00)
--- NOTE | 2017-01-06 08:45 | Clinical Documentation Query ---
CHRISTOPHE Forman : CLINICAL DOCUMENTATION QUERY Patient is a 76 year old male admitted for evaluation and treatment of jaundice and weakness s/p fall. Recieved IVF boluses but ultimately necessitated Levophed and Vasopressin. This is in the setting of positive bacteremia with associated metabolic acidosis, FIDENCIO, and rising LFT's. As appropriate, consider documentation as suggested below in order to capture the severity of illness associated with these comorbid conditions. In your clinical opinion is this patient being managed for: ( X ) Septic shock due to gram negative bacilli bacteremia as evidenced by lactic acidosis, shock liver, FIDENCIO, and multiple vasopressor requirement despite fluid resuscitation. ( ) Other explanation of clinical findings (Please Explain) ( ) Unable to determine (Please Define) ( ) Need to Discuss ( ) Not Agree The medical record reflects the following clinical findings, treatment, and risk factors. Clinical Indicators: As above Treatment: As above Risk Factors: Age, diffuse metastatic cancer, bacteremia Please clarify and document your clinical opinion in the progress notes and discharge summary. Terms such as "probable", "suspected", "likely", "questionable", "possible", or "still to be ruled out" are acceptable. IF IN AGREEMENT, YOU MUST DOCUMENT ABOVE DIAGNOSTIC STATEMENT IN DAILY PROGRESS NOTES AND DISCHARGE SUMMARY. This document is not part of the patient's record. Thank You, Kyrie Neely RN [phone]
--- NOTE | 2017-01-06 09:10 | Medical Consult ---
Consultation Date of Consultation: Jan 06, 2017. 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 Rosado is a 76 yo M new to the consulting Medical Oncology service. He has a PMH of CAD s/p CABG, ischemic cardiomyopathy with EF < 20% s/p AICD, atrial fibrillation, s/p mitral valve replacement, DM2, HTN. He presented to [facility] ER yesterday s/p fall; his family noticed his jaundice/ yellowing skin a few days prior. He was felt to have sepsis with associated hypotension (?source), acute renal failure, acute hepatic failure. He is in ICU and on coverage with broad spectrum antibiotics, including IV Flagyl, vancomycin and clindamycin. He is on vasopressor support. Patient was seen in consultation by nephrology; patient has refused dialysis. Patient seen in consult by GI for black diarrhea and patient has refused upper endoscopy and primary team feels it is unsafe with other comorbid conditions at this time. On imaging during work up, it was noted he has diffuse osteoblastic metastases of spine, manubrium and pelvis. He also has significant metastatic tumor burden in his liver. These findings were not noted on last CT scans obtained in 2015. He underwent ureterocystoscopy on 02/20/[address] Reyes, which revealed filling defect in the left two upper renal calyces, which was highly suggestive of urothelial cancer of the left kidney. However, with his comorbid cardiac conditions, no surgical intervention was advised and he was recommended a palliative course of care. No abdominal or intra-thoracic adenopathy. Medical oncology is asked to provide prognosis in this setting, which given his acute presentation is definitely very poor in short term. Additional history obtained at bedside. Patient was visually agitated at time of visit. His energy has declined. He has had a chronic active cough attributed to multiple cardiac comorbidities. He has little appetite. Family did not feel the patient had an active infection prior to hospitalization. The states that he may have vomited some blood. He has had black stools at least for the past week. He is having consistent back pain , chronic, most likely from metastatic disease. He is titrating up on morphine right now for pain control. Palliative course of care has been advised by his primary team, which is most appropriate given his current clinical deterioration. Past Medical/Surgical History Medical Problems: (1) Acute exacerbation of CHF (congestive heart failure) Status: Acute (2) Acute renal failure Status: Acute (3) Alkaline phosphatase raised Status: Acute (4) Anemia Status: Acute (5) Bleeding from varicose vein Status: Acute (6) Cardiomegaly Status: Acute (7) CHF (congestive heart failure) Status: Acute (8) Dehydration Status: Acute (9) Heme positive stool Status: Acute (10) Hypoglycemia Status: Acute (11) Hypotension Status: Acute (12) Left leg cellulitis Status: Acute (13) Leukocytosis Status: Acute (14) Metastatic cancer Status: Acute (15) Nosebleed Status: Acute (16) Renal insufficiency Status: Acute (17) Right upper quadrant abdominal pain Status: Acute (18) Sacral decubitus ulcer Status: Acute (19) Sludge in gallbladder Status: Acute (20) Total bilirubin, elevated Status: Acute (21) Vomiting Status: Acute (22) Weakness Status: Acute Family History Diabetes mellitus Heart disease Hypertension Social History Smoking Status: Former Smoker Drug Use: none Marital Status: Occupation Status: retired, disabled Allergies Coded Allergies: Zolpidem (Verified Allergy, Intermediate, SHORTNESS OF BREATH, 01/05/17) complaint of cough and shortness breath and itching Penicillins (Verified Allergy, Unknown, RASH, 01/05/17) Current Inpatient Medications Current Inpatient Medications Medications (Trade) Dose Ordered Sig/Ilya Route Start Time Stop Time Status Last Admin Dose Admin Hydromorphone HCl (Dilaudid Tab) 0.5 mg Q4H PRN PO 01/05/17 16:45 01/19/17 16:44 01/05/17 19:54 0.5 MG Digoxin (Lanoxin Tab) 0.125 mg MoWeFr@1600 PO 01/05/17 18:00 02/04/17 17:59 01/05/17 18:40 0.125 MG Miscellaneous Information (Order Awaiting Action) 1 ea QS N/A 01/06/17 00:00 02/05/17 00:00 Miscellaneous Information (Order Awaiting Action) 1 ea QS N/A 01/06/17 00:00 02/05/17 00:00 Dobutamine HCl 0 ml @ 0 mls/hr Q0M PRN IV 01/05/17 18:00 02/04/17 17:59 01/06/17 00:37 33 MLS/HR Clindamycin Phosphate 900 mg/ Dextrose 106 ml @ 100 mls/hr Q8H IV 01/05/17 20:00 01/07/17 19:59 01/06/17 04:04 100 MLS/HR Norepinephrine Bitartrate 16 mg/ Dextrose 516 ml @ 0 mls/hr Q0M PRN IV 01/06/17 00:30 02/05/17 00:29 01/06/17 06:03 165 MLS/HR Metoclopramide HCl (Reglan Inj) 10 mg Q4H PRN IV 01/06/17 04:15 02/04/17 20:14 01/06/17 04:03 10 MG Heparin Sodium (Porcine) (Heparin 10 Unit/ ml 5 ml Flush) 5 ml PRN PRN FLUSH 01/06/17 02:45 02/05/17 02:44 Vasopressin 50 units/Sodium Chloride 502.5 ml @ 24 mls/hr [id number] PRN IV 01/06/17 05:24 02/05/17 05:23 01/06/17 06:01 24 MLS/HR Thiamine HCl 500 mg/Sodium Chloride 55 ml @ 208 mls/hr Q8H IV 01/06/17 06:00 01/08/17 22:16 01/06/17 06:01 208 MLS/HR Insulin Glargine (Lantus Solostar Pen) 20 units QPM SC 01/06/17 21:00 02/05/17 20:59 Insulin Aspart (novoLOG ASPART) SLIDING SCALE G... ACHS SC 01/06/17 06:45 02/05/17 06:44 01/06/17 07:47 3 UNITS Sodium Chloride 1,000 ml @ 80 mls/hr [id number] IV 01/06/17 07:15 02/05/17 07:14 01/06/17 07:48 80 MLS/HR Metronidazole 500 mg/Prmx 100 ml @ 100 mls/hr Q8@00,08,16 IV 01/06/17 08:00 01/16/17 07:59 01/06/17 08:27 100 MLS/HR Vancomycin HCl (Consult) 1 ea UD PRN N/A 01/06/17 07:45 02/05/17 07:44 Vancomycin HCl 1000 mg/Sodium Chloride 270 ml @ 125 mls/hr NOW ONCE IV 01/06/17 08:00 01/06/17 10:09 01/06/17 08:28 125 MLS/HR Review of Systems Constitutional: + weakness, + fatigue, No fever, No chills Respiratory: + cough Cardiovascular: + edema Abdomen: + vomiting, + GI bleeding Musculoskeletal: + problem reported (back pain- see HPI) Integumentary: + problem reported (patient treated more recently for scabies) Physical Exam Date Time Temp Pulse Resp B/P (MAP) Pulse Ox O2 Delivery O2 Flow Rate FiO2 01/06/17 08:00 36.6 92 20 112/42 (65) 93 01/06/17 08:00 Room Air 01/06/17 06:19 88 (51) 92 100/33 94/44 01/06/17 06:03 86 (49) 90 76/24 86/46 01/06/17 05:03 36.6 83 78/17 (37) 92 01/06/17 05:03 83 (32) 92 78/17 110/44 01/06/17 05:00 84 (33) 91 79/11 01/06/17 05:00 84 79/11 (33) 91 01/06/17 04:45 81 95/19 (44) 93 01/06/17 04:45 81 (36) 93 95/19 01/06/17 04:15 82 30/2 (11) 93 01/06/17 04:03 83 (63) 92 101/33 101/36 01/06/17 04:03 83 101/36 (57) 92 01/06/17 04:00 89 95/24 (47) 92 01/06/17 04:00 Room Air 01/06/17 04:00 89 (44) 92 95/24 01/06/17 03:45 85 243/228 (233) 92 01/06/17 03:30 91 (44) 89 95/29 01/06/17 03:30 91 95/29 (51) 89 01/06/17 03:15 85 107/24 (51) 92 01/06/17 03:15 85 (42) 92 107/24 718/17 03:03 84 113/24 (53) 95 718/17 03:03 84 (43) 95 113/24 121/48 718/17 03:00 77 109/24 (52) 94 7/18/17 03:00 77 (42) 94 109/24 718/17 02:52 85 99/52 (68) 93 718/17 02:46 81 (46) 93 111/19 718/17 02:31 80 (47) 93 106/30 718/17 02:16 78 (52) 93 118/34 718/17 02:04 87 105/39 (61) 85 718/17 02:04 87 (42) 85 105/49 /39 718/17 02:01 83 (50) 91 107/31 18/17 02:00 83 20 112/27 (55) 91 18/17 01:46 86 (50) 94 123/30 18/17 01:31 74 (47) 94 112/29 18/17 01:16 86 (50) 93 124/30 18/17 01:05 85 106/29 (54) 92 718/17 01:05 85 (47) 92 106/29 104/85 18/17 01:00 85 107/27 (53) 94 718/17 00:46 79 (42) 93 108/25 18/17 00:31 88 (46) 93 111/27 1817 00:16 87 (48) 92 98/28 1817 00:04 86 18 92/33 (52) 93 1817 00:04 86 (50) 92/33 109/70 718/17 00:00 86 113/28 (56) 91 17 23:59 Room Air 01/05/17 22:30 85 (43) 91 79/21 7/17 22:15 88 (45) 92 99/28 01/05/17 22:00 91 18 101/31 (54) 93 717 22:00 91 (50) 93 101/31 01/05/17 21:45 85 (51) 92 109/32 7/17/17 21:30 87 (58) 92 129/35 01/05/17 21:15 86 (50) 93 87/32 01/05/17 21:04 88 (53) 93 113/33 99/48 01/05/17 21:04 88 113/33 (59) 93 17 21:00 88 117/33 (61) 92 01/05/17 21:00 88 (54) 92 117/33 01/05/17 20:45 87 (52) 93 115/32 01/05/17 20:30 90 (53) 93 108/34 01/05/17 20:15 89 (50) 90 100/32 01/05/17 20:00 89 (54) 93 112/33 01/05/17 20:00 36.4 89 18 112/33 (59) 93 01/05/17 20:00 Room Air 01/05/17 19:45 85 (34) 91 56/24 01/05/17 19:30 80 (46) 92 96/29 01/05/17 19:15 82 (37) 91 67/26 01/05/17 19:03 77 69/28 (42) 92 01/05/17 19:03 77 (37) 92 69/28 /29 01/05/17 19:00 81 75/29 (44) 92 01/05/17 18:45 79 66/25 (39) 92 01/05/17 18:40 77 01/05/17 18:30 81 76/26 (43) 92 01/05/17 18:15 82 79/29 (46) 95 01/05/17 18:03 82 74/28 (43) 97 01/05/17 18:00 74 88/30 (49) 97 01/05/17 17:37 76 23 76/37 95 Nasal Cannula 3.0 01/05/17 17:01 85 20 60/35 96 Nasal Cannula 3.0 01/05/17 16:41 70 01/05/17 16:23 71 20 55/37 96 Nasal Cannula 3.0 01/05/17 15:16 63/43 NIBP 01/05/17 15:09 74 14 56/38 97 Room Air 2.5 01/05/17 14:45 75 14 140/108 95 Nasal Cannula 2.0 01/05/17 14:15 78 18 119/98 99 Nasal Cannula 2.0 01/05/17 13:33 95 Nasal Cannula 2.0 01/05/17 13:32 81 22 109/96 94 Nasal Cannula 2.0 01/05/17 13:20 36.5 80 16 88/39 91 Room Air 01/05/17 13:15 78 General Appearance: no apparent distress Eyes: + abnormal sclerae exam (+ icterus) Respiratory/Chest: lungs clear Abdomen/GI: no organomegaly, + tenderness (epigastrium), + distended Extremities/Musculoskelatal: + swelling Neurologic/Psych: + disoriented Skin: + rash (scabs of LEs, from recent treatment of scabies per family) Laboratory Results 01/05/17 13:38 Red Blood Count 3.23, Mean Corpuscular Volume 92.9, Mean Corpuscular Hemoglobin 32.5, Mean Corpuscular Hemoglobin Concent 35.0, Mean Platelet Volume 10.3, Neutrophils (%) (Auto) 90.9, Lymphocytes (%) (Auto) 3.1, Monocytes (%) (Auto) 4.2, Eosinophils (%) (Auto) 0.6, Basophils (%) (Auto) 0.1, Neutrophils # (Auto) 25.83, Lymphocytes # (Auto) 0.87, Monocytes # (Auto) 1.18, Eosinophils # (Auto) 0.18, Basophils # (Auto) 0.02 01/06/17 03:43 Red Blood Count 2.85, Mean Corpuscular Volume 95.4, Mean Corpuscular Hemoglobin 33.0, Mean Corpuscular Hemoglobin Concent 34.6, Mean Platelet Volume 12.3, Neutrophils (%) (Auto) 90.8, Lymphocytes (%) (Auto) 2.5, Monocytes (%) (Auto) 5.7, Eosinophils (%) (Auto) 0.2, Basophils (%) (Auto) 0.1, Neutrophils # (Auto) 29.11, Lymphocytes # (Auto) 0.80, Monocytes # (Auto) 1.84, Eosinophils # (Auto) 0.06, Basophils # (Auto) 0.03 01/05/17 14:28 01/06/17 04:15 Test 01/05/17 13:38 01/05/17 13:40 01/05/17 13:42 01/05/17 14:10 White Blood Count 28.38 K/uL (4.8-10.8) Red Blood Count 3.23 M/uL (4.7-6.1) Hemoglobin 10.5 g/dL (14.0-18.0) Hematocrit 30.0 % (42-52) Mean Corpuscular Volume 92.9 fL (80-100) Mean Corpuscular Hemoglobin 32.5 pg (25-34) Mean Corpuscular Hemoglobin Concent 35.0 g/dl (32-36) Platelet Count 178 K/uL (130-400) Mean Platelet Volume 10.3 fL (7.4-10.4) Neutrophils (%) (Auto) 90.9 % Lymphocytes (%) (Auto) 3.1 % Monocytes (%) (Auto) 4.2 % Eosinophils (%) (Auto) 0.6 % Basophils (%) (Auto) 0.1 % Neutrophils # (Auto) 25.83 K/uL (1.4-6.5) Lymphocytes # (Auto) 0.87 K/uL (1.2-3.4) Monocytes # (Auto) 1.18 K/uL (0.11-0.59) Eosinophils # (Auto) 0.18 K/uL (0-0.5) Basophils # (Auto) 0.02 K/uL (0-0.2) RDW Standard Deviation 69.6 fL (36.4-46.3) RDW Coefficient of Variation 21.2 % (11.5-14.5) Immature Granulocyte % (Auto) 1.1 % Immature Granulocyte # (Auto) 0.30 K/uL (0.00-0.02) Polychromasia 1+ Anisocytosis PRESENT Target Cells 1+ Ovalocytes 1+ Echinocytes 1+ Bedside Glucose 65 mg/dl (70-99) 97 mg/dl (70-99) Bedside Lactic Acid Venous 5.78 mmol/L (0.90-1.70) Test 01/05/17 14:26 01/05/17 14:28 01/05/17 14:50 01/05/17 16:20 Bedside Glucose 92 mg/dl (70-99) 87 mg/dl (70-99) 90 mg/dl (70-99) Prothrombin Time 27.0 SECONDS (9.0-12.0) Prothromb Time International Ratio 2.4 (0.9-1.1) Activated Partial Thromboplast Time 55.5 SECONDS (21.0-31.0) Partial Thromboplastin Ratio 2.1 Anion Gap 13.0 mmol/L (3-11) Est Creatinine Clear Calc Drug Dose 12.4 ml/min Estimated GFR () 9.4 Estimated GFR (Non- 8.1 BUN/Creatinine Ratio 26.9 (10-20) Lactic Acid Level 5.7 mmol/L (0.4-2.0) Calcium Level 8.6 mg/dl (8.5-10.1) Magnesium Level 2.5 mg/dl (1.8-2.4) Total Bilirubin 14.1 mg/dl (0.2-1) Aspartate Amino Transf (AST/SGOT) 206 U/L (15-37) Alanine Aminotransferase (ALT/SGPT) 73 U/L (12-78) Alkaline Phosphatase 452 U/L (45-117) Troponin I 0.068 ng/ml (0-0.045) Total Protein 5.6 gm/dl (6.4-8.2) Albumin 1.7 gm/dl (3.4-5.0) Globulin 3.9 gm/dl (2.5-4.0) Albumin/Globulin Ratio 0.4 (0.9-2) Procalcitonin 3.90 ng/ml (0-0.5) Thyroid Stimulating Hormone (TSH) 0.896 uIu/ml (0.300-4.500) Random Cortisol 25.94 mcg/dl Digoxin Level 0.6 ng/ml (0.8-2.0) Test 01/05/17 16:40 01/05/17 20:01 01/05/17 23:33 01/05/17 23:44 Urine Color BROWN Urine Appearance CLOUDY (CLEAR) Urine pH (4.5-7.5) Urine Specific Rickman 1.023 (1.000-1.030) Urine Protein POS (NEG) Urine Glucose (UA) (NEG) Urine Ketones (NEG) Urine Occult Blood (NEG) Urine Nitrite (NEG) Urine Bilirubin (NEG) Urine Urobilinogen (NEG) Urine Leukocyte Esterase (NEG) Urine RBC 0-4 /hpf (0-4) Urine WBC 1-5 /hpf (0-5) Urine Epithelial Cells 20-30 /lpf (0-5) Urine Amorphous Sediment PRESENT (NONE PRSENT) Urine Bacteria 2+ (NEG) Urine Granular Casts 0-3 /lpf (0) Lactic Acid Level 7.8 mmol/L (0.4-2.0) 9.6 mmol/L (0.4-2.0) Bedside Glucose 236 mg/dl (70-99) Test 01/06/17 00:41 01/06/17 03:43 01/06/17 04:15 01/06/17 08:40 Total Creatine Kinase 261 U/L (39-308) Creatine Kinase MB 10.9 ng/ml (0.5-3.6) Creatine Kinase MB Ratio 4.2 (0-3.0) (0-3.0) Troponin I 0.193 ng/ml (0-0.045) White Blood Count 32.07 K/uL (4.8-10.8) Red Blood Count 2.85 M/uL (4.7-6.1) Hemoglobin 9.4 g/dL (14.0-18.0) Hematocrit 27.2 % (42-52) Mean Corpuscular Volume 95.4 fL (80-100) Mean Corpuscular Hemoglobin 33.0 pg (25-34) Mean Corpuscular Hemoglobin Concent 34.6 g/dl (32-36) Platelet Count 268 K/uL (130-400) Mean Platelet Volume 12.3 fL (7.4-10.4) Neutrophils (%) (Auto) 90.8 % Lymphocytes (%) (Auto) 2.5 % Monocytes (%) (Auto) 5.7 % Eosinophils (%) (Auto) 0.2 % Basophils (%) (Auto) 0.1 % Neutrophils # (Auto) 29.11 K/uL (1.4-6.5) Lymphocytes # (Auto) 0.80 K/uL (1.2-3.4) Monocytes # (Auto) 1.84 K/uL (0.11-0.59) Eosinophils # (Auto) 0.06 K/uL (0-0.5) Basophils # (Auto) 0.03 K/uL (0-0.2) RDW Standard Deviation 72.8 fL (36.4-46.3) RDW Coefficient of Variation 21.4 % (11.5-14.5) Immature Granulocyte % (Auto) 0.7 % Immature Granulocyte # (Auto) 0.23 K/uL (0.00-0.02) Nucleated RBC Absolute Count (auto) 0.06 K/uL (0-0) Nucleated Red Blood Cells % 0.2 % Toxic Vacuolation 2+ Platelet Estimate NORMAL Anisocytosis PRESENT Spherocytes OCCASIONAL Pappenheimer Bodies 1+ Target Cells 1+ Echinocytes 3+ Lactic Acid Level 10.6 mmol/L (0.4-2.0) Anion Gap 21.0 mmol/L (3-11) Est Creatinine Clear Calc Drug Dose 11.6 ml/min Estimated GFR () 8.9 Estimated GFR (Non- 7.7 BUN/Creatinine Ratio 25.0 (10-20) Calcium Level 8.3 mg/dl (8.5-10.1) Phosphorus Level 7.3 mg/dl (2.5-4.9) Magnesium Level 2.5 mg/dl (1.8-2.4) Total Bilirubin 14.0 mg/dl (0.2-1) Aspartate Amino Transf (AST/SGOT) 256 U/L (15-37) Alanine Aminotransferase (ALT/SGPT) 84 U/L (12-78) Alkaline Phosphatase 419 U/L (45-117) Total Protein 5.4 gm/dl (6.4-8.2) Albumin 1.8 gm/dl (3.4-5.0) Globulin 3.6 gm/dl (2.5-4.0) Albumin/Globulin Ratio 0.5 (0.9-2) Date/Time Source Procedure Growth Status 01/05/17 00:00 Nasal MRSA DNA Surveillance Screen - Final Specimen Positive for MRSA by DNA Probe Complete Urine cytology from 02/12/2016: URINE, VOIDED: ATYPICAL UROTHELIAL CELLS. SEE COMMENT. COMMENT: Scattered large single atypical urothelial cells exhibiting nuclear enlargement with elevated nuclear to cytoplasmic ratios are noted. A background of red blood cells and neutrophils is noted. Degenerative changes limit evaluation. The differential includes reactive atypia with degenerative change versus urothelial dysplasia/neoplasm. The features are in my opinion not diagnostic of high-grade urothelial carcinoma. Further evaluation may be warranted if clinical indicated. Urine cytology from 02/13/2016: 1. FEW ATYPICAL UROTHELIAL CELLS WITH REACTIVE AND DEGENERATIVE CHANGES. 2. BLOOD. 3. NEGATIVE FOR HIGH-GRADE UROTHELIAL CARCINOMA. Urine cytology from 02/20/2016: 1. NEGATIVE FOR HIGH-GRADE UROTHELIAL CARCINOMA. 2. ABUNDANT ACUTE INFLAMMATORY CELLS PRESENT. 3. REACTIVE AND DEGENERATIVE CHANGES NOTED Retrograde pyelogram from 02/20/16: Dilatation of a left upper pole calyx and associated filling defect within the infundibulum. This could be due to neoplasm or blood clot. (Thought to be a cyst? by CT) Chest x-ray from 01/05/17: There are postsurgical changes of midline sternotomy and valvular replacement. A left subclavian pacer/defibrillator is evident. The heart remains enlarged. There is radiographic evidence of congestive failure with mild pulmonary edema. Small pleural effusions are suspected CT abdomen/pelvis from 01/05/17: 1. Findings compatible with diffuse sclerotic metastasis to the imaged axial and appendicular skeletal system. These findings are suspicious for prostate cancer. 2. Suggested diffuse hepatic metastasis with mild amount of intra-abdominal and intrapelvic ascites. 3. Small right pleural effusion with subsegmental consolidation of the bilateral lung bases suggesting atelectasis or pneumonitis. 4. Circumferential wall thickening of the urinary bladder suggests cystitis. 5. Mild fusiform aneurysmal dilation of the infrarenal abdominal aorta, 3.[address] of the chest from 01/05/17: 1. Numerous sclerotic skeletal lesions highly suggestive of blastic metastases. 2. Multiple hypodense hepatic lesions. These are suboptimally assessed on this unenhanced exam but suggestive of a neoplastic process and favor metastatic disease. Suspected cirrhosis with small amount of perihepatic ascites. 3. Moderate right and trace left pleural effusions. Associated airspace opacities favor atelectasis although an infectious process could appear similar. 4. Mild pulmonary edema. Bilateral LE Doppler from 01/05/17: 1. No evidence of deep venous thrombus within the bilateral lower extremities. 2. 8.3 x 4.9 x 3.6 cm hypoechoic abnormality within the right popliteal fossa without color flow. This is nonspecific and could reflect a complex popliteal cyst, hematoma or less likely mass. CXR from 01/05/17: 1. No pneumothorax following placement of a right internal jugular central line. Catheter tip projects over the SVC. 2. Bilateral pleural effusions with suspected mild pulmonary edema. Assessment & Plan 1. 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 bone and liver * Patient was not candidate for surgical resection at time of diagnosis in 2015 per Urology * Palliative course of care was advised at that time * Now has liver and bone metastases * Given his extensive comorbidities, clinical picture at this time, he appears to be actively dying * He is now on palliative measures, pain control, this was discussed with family at bedside are accepting of current prognosis 2.Sepsis- source unknown * 1/2 blood cultures positive for gram negative bacilli * Urine culture negative * CT suggests possible acute cystitis * On 3 different agents for vasopressor support * On vancomycin, Flagyl and clindamycin 3. Acute Kidney Injury superimposed on CKD, possibly stage 3-4 at baseline * Nephrology consulted * Dialysis refused 4. Ischemic Cardiomyopathy * with EF < 20% * With palliative measures only, arranging to have AICD deactivated 5. Probable upper GI bleed * Given patient's current status, no invasive procedures advised and patient refused per GI * Would likely be potentiated by coagulopathy of liver failure * H+H adequate at this time Thanks for the consult. Dr. Ford is attending medical oncologist for this hospitalization. I have discussed the patient's case, impression and plan with Precious Everett. Her note reflects my findings and plan. Before I could see him, he . Dr. Reno Ford Hem/Onc
--- NOTE | 2017-01-06 09:27 | Progress Note ---
Internal Med Progress Note Date of Service: Jan 06, 2017. Provider Documentation: SUBJECTIVE: Clinically deteriorating. Currently on 3 pressors. Discussed with Airplane Rental Clerk and family along with patient. Decision made to make him DNR/DNI. OBJECTIVE: Vital Signs-as noted below Physical Exam: General Appearance:Moderately built and nourished, Anasarca, +Jaundice, Mild distress Head: normocephalic, Atraumatic Eyes: normal inspection, EOMI, PERRL Neck: supple, Trachea midline Respiratory/Chest: Normal breath sounds, CTA Cardiovascular: S1, S2, No murmur Abdomen/GI:Soft, Non tender, Bowel sounds present, +Protuberant Extremities/Musculoskelatal:normal inspection, B/L LE edema, +Multiple blisters on B/L LE Neurologic/Psych:grossly no focal neurological deficits Skin: Severely Jaundiced Lab data as noted below. ASSESSMENT & PLAN: Patient is a 76 yr male with a PMH of CAD s/p CABG, ischemic cardiomyopathy with EF < 20% s/p AICD, A. Fib, DM2, HTN; presents with multi-organ failure, sepsis and hypotension Septic Shock/Multiorgan failure Metastatic disease Currently requiring 3 pressors to maintain his blood pressure Also on Broad spectrum IV antibiotics Patient prefers not get dialysis or any procedures Discussed with family/patient and Airplane Rental Clerk and decision made for DNI/DNR Will Involve palliative care Anasarca secondary to Metastatic disease and Sepsis primary possibly kidney/prostate; hx. of hematuria; has seen urology in the past CT suggests mets to the bone and liver Oncology consulted FIDENCIO on CKD, In setting of septic shock and metastasis No plan for dialysis given his comorbidities Appreciate Nephrology Input Ischemic Cardiomyopathy with EF < 20% Will arrange to turn off AICD per request from family Code Status: DNR/DNI Disposition: Transfer to medical floor Consulted Palliative care and Permastone Applicator Vital Signs: Date Time Temp Pulse Resp B/P (MAP) Pulse Ox O2 Delivery O2 Flow Rate FiO2 01/06/17 08:00 36.6 92 20 112/42 (65) 93 01/06/17 08:00 Room Air 01/06/17 06:19 88 (51) 92 100/33 94/44 01/06/17 06:03 86 (49) 90 76/24 86/46 01/06/17 05:03 36.6 83 78/17 (37) 92 7/18/17 05:03 83 (32) 92 78/17 110/44 7/18/17 05:00 84 (33) 91 79/11 7/18/17 05:00 84 79/11 (33) 91 7/18/17 04:45 81 95/19 (44) 93 7/18/17 04:45 81 (36) 93 95/19 7/18/17 04:15 82 30/2 (11) 93 7/18/17 04:03 83 (63) 92 101/33 101/36 7/18/17 04:03 83 101/36 (57) 92 7/18/17 04:00 89 95/24 (47) 92 7/18/17 04:00 Room Air 01/06/17 04:00 89 (44) 92 95/24 718/17 03:45 85 243/228 (233) 92 7/18/17 03:30 91 (44) 89 95/29 7/18/17 03:30 91 95/29 (51) 89 7/18/17 03:15 85 107/24 (51) 92 7/18/17 03:15 85 (42) 92 107/24 7/18/17 03:03 84 113/24 (53) 95 7/18/17 03:03 84 (43) 95 113/24 121/48 7/18/17 03:00 77 109/24 (52) 94 7/18/17 03:00 77 (42) 94 109/24 7/18/17 02:52 85 99/52 (68) 93 7/18/17 02:46 81 (46) 93 111/19 7/18/17 02:31 80 (47) 93 106/30 7/18/17 02:16 78 (52) 93 118/34 7/18/17 02:04 87 105/39 (61) 85 7/18/17 02:04 87 (42) 85 105/49 /39 7/18/17 02:01 83 (50) 91 107/31 7/18/17 02:00 83 20 112/27 (55) 91 7/18/17 01:46 86 (50) 94 123/30 7/18/17 01:31 74 (47) 94 112/29 7/18/17 01:16 86 (50) 93 124/30 17 01:05 85 106/29 (54) 92 [id number] 01:05 85 (47) 92 106/29 104/85 71817 01:00 85 107/27 (53) 94 718/17 00:46 79 (42) 93 108/25 1817 00:31 88 (46) 93 111/27 01/06/17 00:16 87 (48) 92 98/28 01/06/17 00:04 86 18 92/33 (52) 93 01/06/17 00:04 86 (50) 92/33 109/70 01/06/17 00:00 86 113/28 (56) 91 01/05/17 23:59 Room Air 01/05/17 22:30 85 (43) 91 79/21 01/05/17 22:15 88 (45) 92 99/28 01/05/17 22:00 91 18 101/31 (54) 93 01/05/17 22:00 91 (50) 93 101/31 01/05/17 21:45 85 (51) 92 109/32 01/05/17 21:30 87 (58) 92 129/35 01/05/17 21:15 86 (50) 93 87/32 01/05/17 21:04 88 (53) 93 113/33 99/48 01/05/17 21:04 88 113/33 (59) 93 01/05/17 21:00 88 117/33 (61) 92 01/05/17 21:00 88 (54) 92 117/33 01/05/17 20:45 87 (52) 93 115/32 17 20:30 90 (53) 93 108/34 01/05/17 20:15 89 (50) 90 100/32 17 20:00 89 (54) 93 112/33 01/05/17 20:00 36.4 89 18 112/33 (59) 93 17 20:00 Room Air 01/05/17 19:45 85 (34) 91 56/24 01/05/17 19:30 80 (46) 92 96/29 01/05/17 19:15 82 (37) 91 67/26 01/05/17 19:03 77 69/28 (42) 92 7/17/17 19:03 77 (37) 92 69/28 /29 01/05/17 19:00 81 75/29 (44) 92 01/05/17 18:45 79 66/25 (39) 92 01/05/17 18:40 77 01/05/17 18:30 81 76/26 (43) 92 01/05/17 18:15 82 79/29 (46) 95 01/05/17 18:03 82 74/28 (43) 97 01/05/17 18:00 74 88/30 (49) 97 01/05/17 17:37 76 23 76/37 95 Nasal Cannula 3.0 01/05/17 17:01 85 20 60/35 96 Nasal Cannula 3.0 01/05/17 16:41 70 01/05/17 16:23 71 20 55/37 96 Nasal Cannula 3.0 01/05/17 15:16 63/43 NIBP 01/05/17 15:09 74 14 56/38 97 Room Air 2.5 01/05/17 14:45 75 14 140/108 95 Nasal Cannula 2.0 01/05/17 14:15 78 18 119/98 99 Nasal Cannula 2.0 01/05/17 13:33 95 Nasal Cannula 2.0 01/05/17 13:32 81 22 109/96 94 Nasal Cannula 2.0 01/05/17 13:20 36.5 80 16 88/39 91 Room Air 01/05/17 13:15 78 Lab Results: Results Past 24 Hours Test 01/05/17 13:38 01/05/17 13:40 01/05/17 13:42 01/05/17 14:10 Range/Units White Blood Count 28.38 4.8-10.8 K/uL Red Blood Count 3.23 4.7-6.1 M/uL Hemoglobin 10.5 14.0-18.0 g/dL Hematocrit 30.0 42-52 % Mean Corpuscular Volume 92.9 80-100 fL Mean Corpuscular Hemoglobin 32.5 25-34 pg Mean Corpuscular Hemoglobin Concent 35.0 32-36 g/dl Platelet Count 178 130-400 K/uL Mean Platelet Volume 10.3 7.4-10.4 fL Neutrophils (%) (Auto) 90.9 % Lymphocytes (%) (Auto) 3.1 % Monocytes (%) (Auto) 4.2 % Eosinophils (%) (Auto) 0.6 % Basophils (%) (Auto) 0.1 % Neutrophils # (Auto) 25.83 1.4-6.5 K/uL Lymphocytes # (Auto) 0.87 1.2-3.4 K/uL Monocytes # (Auto) 1.18 0.11-0.59 K/uL Eosinophils # (Auto) 0.18 0-0.5 K/uL Basophils # (Auto) 0.02 0-0.2 K/uL RDW Standard Deviation 69.6 36.4-46.3 fL RDW Coefficient of Variation 21.2 11.5-14.5 % Immature Granulocyte % (Auto) 1.1 % Immature Granulocyte # (Auto) 0.30 0.00-0.02 K/uL Polychromasia 1+ Anisocytosis PRESENT Target Cells 1+ Ovalocytes 1+ Echinocytes 1+ Bedside Glucose 65 97 70-99 mg/dl Bedside Lactic Acid Venous 5.78 0.90-1.70 mmol/L Test 01/05/17 14:26 01/05/17 14:28 01/05/17 14:50 01/05/17 16:20 Range/Units Bedside Glucose 92 87 90 70-99 mg/dl Prothrombin Time 27.0 9.0-12.0 SECONDS Prothromb Time International Ratio 2.4 0.9-1.1 Activated Partial Thromboplast Time 55.5 21.0-31.0 SECONDS Partial Thromboplastin Ratio 2.1 Sodium Level 129 136-145 mmol/L Potassium Level 5.1 3.5-5.1 mmol/L Chloride Level 95 98-107 mmol/L Carbon Dioxide Level 21 21-32 mmol/L Anion Gap 13.0 3-11 mmol/L Blood Urea Nitrogen 164 7-18 mg/dl Creatinine 6.10 0.60-1.40 mg/dl Est Creatinine Clear Calc Drug Dose 12.4 ml/min Estimated GFR () 9.4 Estimated GFR (Non- 8.1 BUN/Creatinine Ratio 26.9 10-20 Random Glucose 97 70-99 mg/dl Lactic Acid Level 5.7 0.4-2.0 mmol/L Calcium Level 8.6 8.5-10.1 mg/dl Magnesium Level 2.5 1.8-2.4 mg/dl Total Bilirubin 14.1 0.2-1 mg/dl Aspartate Amino Transf (AST/SGOT) 206 15-37 U/L Alanine Aminotransferase (ALT/SGPT) 73 12-78 U/L Alkaline Phosphatase 452 45-117 U/L Troponin I 0.068 0-0.045 ng/ml Total Protein 5.6 6.4-8.2 gm/dl Albumin 1.7 3.4-5.0 gm/dl Globulin 3.9 2.5-4.0 gm/dl Albumin/Globulin Ratio 0.4 0.9-2 Procalcitonin 3.90 0-0.5 ng/ml Thyroid Stimulating Hormone (TSH) 0.896 0.300-4.500 uIu/ml Random Cortisol 25.94 mcg/dl Digoxin Level 0.6 0.8-2.0 ng/ml Test 01/05/17 16:40 01/05/17 20:01 01/05/17 23:33 01/05/17 23:44 Range/Units Urine Color BROWN Urine Appearance CLOUDY CLEAR Urine pH 4.5-7.5 Urine Specific [place] 1.023 1.000-1.030 Urine Protein POS NEG Urine Glucose (UA) NEG Urine Ketones NEG Urine Occult Blood NEG Urine Nitrite NEG Urine Bilirubin NEG Urine Urobilinogen NEG Urine Leukocyte Esterase NEG Urine RBC 0-4 0-4 /hpf Urine WBC 1-5 0-5 /hpf Urine Epithelial Cells 20-30 0-5 /lpf Urine Amorphous Sediment PRESENT NONE PRSENT Urine Bacteria 2+ NEG Urine Granular Casts 0-3 0 /lpf Lactic Acid Level 7.8 9.6 0.4-2.0 mmol/L Bedside Glucose 236 70-99 mg/dl Test 01/06/17 00:41 01/06/17 03:43 01/06/17 04:15 01/06/17 08:40 Range/Units Total Creatine Kinase 261 39-308 U/L Creatine Kinase MB 10.9 0.5-3.6 ng/ml Creatine Kinase MB Ratio 4.2 0-3.0 Troponin I 0.193 0-0.045 ng/ml White Blood Count 32.07 4.8-10.8 K/uL Red Blood Count 2.85 4.7-6.1 M/uL Hemoglobin 9.4 14.0-18.0 g/dL Hematocrit 27.2 42-52 % Mean Corpuscular Volume 95.4 80-100 fL Mean Corpuscular Hemoglobin 33.0 25-34 pg Mean Corpuscular Hemoglobin Concent 34.6 32-36 g/dl Platelet Count 268 130-400 K/uL Mean Platelet Volume 12.3 7.4-10.4 fL Neutrophils (%) (Auto) 90.8 % Lymphocytes (%) (Auto) 2.5 % Monocytes (%) (Auto) 5.7 % Eosinophils (%) (Auto) 0.2 % Basophils (%) (Auto) 0.1 % Neutrophils # (Auto) 29.11 1.4-6.5 K/uL Lymphocytes # (Auto) 0.80 1.2-3.4 K/uL Monocytes # (Auto) 1.84 0.11-0.59 K/uL Eosinophils # (Auto) 0.06 0-0.5 K/uL Basophils # (Auto) 0.03 0-0.2 K/uL RDW Standard Deviation 72.8 36.4-46.3 fL RDW Coefficient of Variation 21.4 11.5-14.5 % Immature Granulocyte % (Auto) 0.7 % Immature Granulocyte # (Auto) 0.23 0.00-0.02 K/uL Nucleated RBC Absolute Count (auto) 0.06 0-0 K/uL Nucleated Red Blood Cells % 0.2 % Toxic Vacuolation 2+ Platelet Estimate NORMAL Anisocytosis PRESENT Spherocytes OCCASIONAL Pappenheimer Bodies 1+ Target Cells 1+ Echinocytes 3+ Lactic Acid Level 10.6 0.4-2.0 mmol/L Sodium Level 125 136-145 mmol/L Potassium Level 5.4 3.5-5.1 mmol/L Chloride Level 91 98-107 mmol/L Carbon Dioxide Level 13 21-32 mmol/L Anion Gap 21.0 3-11 mmol/L Blood Urea Nitrogen 160 7-18 mg/dl Creatinine 6.40 0.60-1.40 mg/dl Est Creatinine Clear Calc Drug Dose 11.6 ml/min Estimated GFR () 8.9 Estimated GFR (Non- 7.7 BUN/Creatinine Ratio 25.0 10-20 Random Glucose 258 70-99 mg/dl Calcium Level 8.3 8.5-10.1 mg/dl Phosphorus Level 7.3 2.5-4.9 mg/dl Magnesium Level 2.5 1.8-2.4 mg/dl Total Bilirubin 14.0 0.2-1 mg/dl Aspartate Amino Transf (AST/SGOT) 256 15-37 U/L Alanine Aminotransferase (ALT/SGPT) 84 12-78 U/L Alkaline Phosphatase 419 45-117 U/L Total Protein 5.4 6.4-8.2 gm/dl Albumin 1.8 3.4-5.0 gm/dl Globulin 3.6 2.5-4.0 gm/dl Albumin/Globulin Ratio 0.5 0.9-2 Microbiology Results 01/05/17 Blood Culture, Received Pending 01/05/17 Blood Culture - Preliminary, Resulted Gram Negative Bacilli 01/05/17 Urine Culture, Received Pending
[2017-01-06] MEDS ORDERED: CEFEPIME CONSULT ACTIVE PRN ×2 (09:30)
[2017-01-06] MEDS ORDERED: STERILE WATER IV SCH (09:30)
[2017-01-06] MEDS ORDERED: SODIUM ACETATE IV SCH (09:30)
[2017-01-06] MEDS ORDERED: ASCORBIC ACID INJ 1,500 MG in NSS 100 ML IV ONE (09:45)
--- NOTE | 2017-01-06 09:55 | Gastrointestinal Consultation ---
Gastrointestinal Consultation Date of Consultation: Jan 06, 2017 Attending Physician: Latoya Consulting Physician: Dr. Brothers Reason for Consultation: Hematemesis, melena History of Present Illness Patient is a 76 year old male patient with a hx of CAD, CABG, EF<20, DM-2, HTN who was brought to the ED yesterday for a fall, weakness. He reports chronic black, diarrhea. On arrival, Hb was 10.5 (today 9.4); BUN 160, Cr 6.4. His T bili is 14, other LFts are also elevated: AST 206, ALT 84 Alk Phos 452. He is refusing dialysis. Additionally, on CT, there is suggestion of metastatic disease in the liver and bones. I spoke with the patient who refuses any procedures and spoke with Dr. Castillo, the cake icer and packer who does not feel that EGD is appropriate in light of his comorbidities. Past Medical/Surgical History Medical Problems: (1) Acute exacerbation of CHF (congestive heart failure) Status: Acute (2) Acute renal failure Status: Acute (3) Alkaline phosphatase raised Status: Acute (4) Anemia Status: Acute (5) Bleeding from varicose vein Status: Acute (6) Cardiomegaly Status: Acute (7) CHF (congestive heart failure) Status: Acute (8) Dehydration Status: Acute (9) Heme positive stool Status: Acute (10) Hypoglycemia Status: Acute (11) Hypotension Status: Acute (12) Left leg cellulitis Status: Acute (13) Leukocytosis Status: Acute (14) Metastatic cancer Status: Acute (15) Nosebleed Status: Acute (16) Renal insufficiency Status: Acute (17) Right upper quadrant abdominal pain Status: Acute (18) Sacral decubitus ulcer Status: Acute (19) Sludge in gallbladder Status: Acute (20) Total bilirubin, elevated Status: Acute (21) Vomiting Status: Acute (22) Weakness Status: Acute Past Medical History: 1. A-fib 2. ARF on CKD 3. CAD, EF <20%, severe dilated ischemic cardiomyopathy with NYHA Class III+, CHF and status post CABG and mitral valve repair in July of 2001. He has ICD replacement for atrial fibrillation, 3. DM-2 4. Pulmonary hypertension, chronic edema, 5. GERD 6. Pernicious anemia 7. Gout 8. Hyperlipidemia 9. Hypertension 10. Vit D deficiency. Past Surgical History: 1. Cystoscopy Family History Diabetes mellitus Heart disease Hypertension Social History Smoking Status: Former Smoker Drug Use: none Marital Status: Occupation Status: retired, disabled Allergies Coded Allergies: Zolpidem (Verified Allergy, Intermediate, SHORTNESS OF BREATH, 01/05/17) complaint of cough and shortness breath and itching Penicillins (Verified Allergy, Unknown, RASH, 01/05/17) Current Medications Home Meds and Scripts Medications Dose Route/Sig Max Daily Dose Days Date Category Dose Instructions Demadex (Torsemide) 100 Mg Tab 100 Mg PO DAILY 01/05/17 Reported Mometasone Furoate (Mometasone Furoate (Nasal)) 50 Mcg/Act Spr 2 Sprays LESTER BID 10/11/16 Reported Zocor (Simvastatin) 40 Mg Tab 20 Mg PO QPM 10/11/16 Reported 1/2'S 40MG TABS FOR 20MG DOSE Combivent Respimat (Ipratropium-Albuterol) 1 Aer Aer 1 Puffs INH BID 10/11/16 Reported Novolog Flexpen (Insulin Aspart) 100 Units/Ml Inj 15 Units SQ WM 10/11/16 Reported Digoxin 0.125 Mg Tab 0.125 Mg PO MWF 10/11/16 Reported Tylenol Arthritis Ext Rel (Acetaminophen) 650 Mg Cplt 650 Mg PO Q8H 10/11/16 Reported Cleocin (Clindamycin Hcl) 150 Mg Cap 4 Cap PO UD PRN 05/24/16 Reported take 600mg 1 hour prior to dental work Vitamin D3 (Cholecalciferol) 1,000 Unit Tab 1 Tab PO DAILY 90 05/24/16 Reported Avodart (Dutasteride) 0.5 Mg Cap 0.5 Mg PO DAILY 05/24/16 Reported Vitamin B-12 1000 Mcg (Cyanocobalamin) 1,000 Mcg Tab 1,000 Mcg PO DAILY 05/24/16 Reported Lantus Solostar (Insulin Glargine) 100 Unit/Ml Inj 25 Unit SC QPM 02/10/16 Reported DEPENDING ON B.S., SOMETIMES ONLY NEED 35UNITS QPM Spironolactone 25 Mg Tab 12.5 Mg PO MWF 10/27/14 Reported Toprol-Xl (Metoprolol Succinate) 100 Mg Tabcr 100 Mg PO BID 10/27/14 Reported Allopurinol 300 Mg Tab 450 Mg PO QAM 10/27/14 Reported 1.5 tablet dose Zinc (Zinc Gluconate) 50 Mg Tab 25 Mg PO DAILY 09/03/14 Reported 1/2 tablet dose Nitrostat (Nitroglycerin) 0.4 Mg Tab 0.4 Mg UT UD PRN 09/03/14 Reported Review of Systems Constitutional: + weakness, No fever, No chills, No sweats, No weight loss Eyes: No eye pain, No redness ENT: No sore throat, No trouble swallowing, No pain on swallowing Respiratory: No cough, No wheezing, No shortness of breath, No dyspnea on exertion Cardiac: + edema, No chest pain, No palpitations Abdomen: + see HPI, + pain (reported diffuse abdominal pain at arrival which he now denies) Neuro: No memory loss, No weakness, No numbness/tingling, No vertigo, No balance problems Psych: No depression symptoms, No anxiety, No insomnia Heme: No abnormal bleeding/bruising, No night sweats Endo: No excessive thirst, No excessive urination Skin: + jaundice, No rash, No itch, No new/changing skin lesions Physical Exam Date Time Temp Pulse Resp B/P (MAP) Pulse Ox O2 Delivery O2 Flow Rate FiO2 01/06/17 08:00 36.6 92 20 112/42 (65) 93 01/06/17 08:00 Room Air 01/06/17 06:19 88 (51) 92 100/33 94/44 01/06/17 06:03 86 (49) 90 76/24 86/46 01/06/17 05:03 36.6 83 78/17 (37) 92 01/06/17 05:03 83 (32) 92 78/17 110/44 01/06/17 05:00 84 (33) 91 79/11 01/06/17 05:00 84 79/11 (33) 91 01/06/17 04:45 81 95/19 (44) 93 01/06/17 04:45 81 (36) 93 95/19 01/06/17 04:15 82 30/2 (11) 93 01/06/17 04:03 83 (63) 92 101/33 101/36 01/06/17 04:03 83 101/36 (57) 92 01/06/17 04:00 89 95/24 (47) 92 01/06/17 04:00 Room Air 7/18/17 04:00 89 (44) 92 95/24 718/17 03:45 85 243/228 (233) 92 718/17 03:30 91 (44) 89 95/29 718/17 03:30 91 95/29 (51) 89 7/18/17 03:15 85 107/24 (51) 92 7/18/17 03:15 85 (42) 92 107/24 718/17 03:03 84 113/24 (53) 95 718/17 03:03 84 (43) 95 113/24 121/48 718/17 03:00 77 109/24 (52) 94 7/18/17 03:00 77 (42) 94 109/24 18/17 02:52 85 99/52 (68) 93 718/17 02:46 81 (46) 93 111/19 18/17 02:31 80 (47) 93 106/30 18/17 02:16 78 (52) 93 118/34 18/17 02:04 87 105/39 (61) 85 718/17 02:04 87 (42) 85 105/49 /39 18/17 02:01 83 (50) 91 107/31 18/17 02:00 83 20 112/27 (55) 91 718/17 01:46 86 (50) 94 123/30 718/17 01:31 74 (47) 94 112/29 18/17 01:16 86 (50) 93 124/30 18/17 01:05 85 106/29 (54) 92 718/17 01:05 85 (47) 92 106/29 104/85 718/17 01:00 85 107/27 (53) 94 7/18/17 00:46 79 (42) 93 108/25 718/17 00:31 88 (46) 93 111/27 718/17 00:16 87 (48) 92 98/28 718/17 00:04 86 18 92/33 (52) 93 17 00:04 86 (50) 92/33 109/70 18/17 00:00 86 113/28 (56) 91 01/05/17 23:59 Room Air 01/05/17 22:30 85 (43) 91 79/21 7/17 22:15 88 (45) 92 99/28 01/05/17 22:00 91 18 101/31 (54) 93 17 22:00 91 (50) 93 101/31 01/05/17 21:45 85 (51) 92 109/32 01/05/17 21:30 87 (58) 92 129/35 01/05/17 21:15 86 (50) 93 87/32 17 21:04 88 (53) 93 113/33 99/48 717 21:04 88 113/33 (59) 93 17 21:00 88 117/33 (61) 92 17 21:00 88 (54) 92 117/33 17 20:45 87 (52) 93 115/32 01/05/17 20:30 90 (53) 93 108/34 17 20:15 89 (50) 90 100/32 17 20:00 89 (54) 93 112/33 17 20:00 36.4 89 18 112/33 (59) 93 17 20:00 Room Air 01/05/17 19:45 85 (34) 91 56/24 01/05/17 19:30 80 (46) 92 96/29 17 19:15 82 (37) 91 67/26 17 19:03 77 69/28 (42) 92 01/05/17 19:03 77 (37) 92 69/28 /29 17 19:00 81 75/29 (44) 92 17 18:45 79 66/25 (39) 92 17 18:40 77 01/05/17 18:30 81 76/26 (43) 92 01/05/17 18:15 82 79/29 (46) 95 01/05/17 18:03 82 74/28 (43) 97 01/05/17 18:00 74 88/30 (49) 97 17 17:37 76 23 76/37 95 Nasal Cannula 3.0 17 17:01 85 20 60/35 96 Nasal Cannula 3.0 7/17/17 16:41 70 7/17/17 16:23 71 20 55/37 96 Nasal Cannula 3.0 01/05/17 15:16 63/43 NIBP 01/05/17 15:09 74 14 56/38 97 Room Air 2.5 01/05/17 14:45 75 14 140/108 95 Nasal Cannula 2.0 01/05/17 14:15 78 18 119/98 99 Nasal Cannula 2.0 01/05/17 13:33 95 Nasal Cannula 2.0 01/05/17 13:32 81 22 109/96 94 Nasal Cannula 2.0 01/05/17 13:20 36.5 80 16 88/39 91 Room Air 01/05/17 13:15 78 General Appearance: no apparent distress, + mild distress (c/o discomfort from the bed) Eyes: normal inspection, EOMI Neck: supple, no adenopathy, thyroid normal Respiratory/Chest: chest non-tender, no accessory muscle use, + crackles (Rt >L ) Cardiovascular: regular rate, rhythm, no JVD, no murmur Abdomen: normal bowel sounds, non tender, soft, no organomegaly, + distended ( mildly) Extremities: normal inspection, normal capillary refill, + pedal edema (entire lower legs) Neurologic/Psych: alert, normal mood/affect, oriented x 3 Skin: normal color, warm/dry, no rash, + jaundice Laboratory Results Last 24 Hours Test 01/05/17 13:38 01/05/17 13:40 01/05/17 13:42 01/05/17 14:10 White Blood Count 28.38 K/uL Red Blood Count 3.23 M/uL Hemoglobin 10.5 g/dL Hematocrit 30.0 % Mean Corpuscular Volume 92.9 fL Mean Corpuscular Hemoglobin 32.5 pg Mean Corpuscular Hemoglobin Concent 35.0 g/dl Platelet Count 178 K/uL Mean Platelet Volume 10.3 fL Neutrophils (%) (Auto) 90.9 % Lymphocytes (%) (Auto) 3.1 % Monocytes (%) (Auto) 4.2 % Eosinophils (%) (Auto) 0.6 % Basophils (%) (Auto) 0.1 % Neutrophils # (Auto) 25.83 K/uL Lymphocytes # (Auto) 0.87 K/uL Monocytes # (Auto) 1.18 K/uL Eosinophils # (Auto) 0.18 K/uL Basophils # (Auto) 0.02 K/uL RDW Standard Deviation 69.6 fL RDW Coefficient of Variation 21.2 % Immature Granulocyte % (Auto) 1.1 % Immature Granulocyte # (Auto) 0.30 K/uL Polychromasia 1+ Anisocytosis PRESENT Target Cells 1+ Ovalocytes 1+ Echinocytes 1+ Bedside Glucose 65 mg/dl 97 mg/dl Bedside Lactic Acid Venous 5.78 mmol/L Test 01/05/17 14:26 01/05/17 14:28 01/05/17 14:50 01/05/17 16:20 Bedside Glucose 92 mg/dl 87 mg/dl 90 mg/dl Prothrombin Time 27.0 SECONDS Prothromb Time International Ratio 2.4 Activated Partial Thromboplast Time 55.5 SECONDS Partial Thromboplastin Ratio 2.1 Sodium Level 129 mmol/L Potassium Level 5.1 mmol/L Chloride Level 95 mmol/L Carbon Dioxide Level 21 mmol/L Anion Gap 13.0 mmol/L Blood Urea Nitrogen 164 mg/dl Creatinine 6.10 mg/dl Est Creatinine Clear Calc Drug Dose 12.4 ml/min Estimated GFR () 9.4 Estimated GFR (Non- 8.1 BUN/Creatinine Ratio 26.9 Random Glucose 97 mg/dl Lactic Acid Level 5.7 mmol/L Calcium Level 8.6 mg/dl Magnesium Level 2.5 mg/dl Total Bilirubin 14.1 mg/dl Aspartate Amino Transf (AST/SGOT) 206 U/L Alanine Aminotransferase (ALT/SGPT) 73 U/L Alkaline Phosphatase 452 U/L Troponin I 0.068 ng/ml Total Protein 5.6 gm/dl Albumin 1.7 gm/dl Globulin 3.9 gm/dl Albumin/Globulin Ratio 0.4 Procalcitonin 3.90 ng/ml Thyroid Stimulating Hormone (TSH) 0.896 uIu/ml Random Cortisol 25.94 mcg/dl Digoxin Level 0.6 ng/ml Test 01/05/17 16:40 01/05/17 20:01 01/05/17 23:33 01/05/17 23:44 Urine Color BROWN Urine Appearance CLOUDY Urine pH Urine Specific [place] 1.023 Urine Protein POS Urine Glucose (UA) Urine Ketones Urine Occult Blood Urine Nitrite Urine Bilirubin Urine Urobilinogen Urine Leukocyte Esterase Urine RBC 0-4 /hpf Urine WBC 1-5 /hpf Urine Epithelial Cells 20-30 /lpf Urine Amorphous Sediment PRESENT Urine Bacteria 2+ Urine Granular Casts 0-3 /lpf Lactic Acid Level 7.8 mmol/L 9.6 mmol/L Bedside Glucose 236 mg/dl Test 01/06/17 00:41 01/06/17 03:43 01/06/17 04:15 01/06/17 08:40 Total Creatine Kinase 261 U/L Creatine Kinase MB 10.9 ng/ml Creatine Kinase MB Ratio 4.2 Troponin I 0.193 ng/ml White Blood Count 32.07 K/uL Red Blood Count 2.85 M/uL Hemoglobin 9.4 g/dL Hematocrit 27.2 % Mean Corpuscular Volume 95.4 fL Mean Corpuscular Hemoglobin 33.0 pg Mean Corpuscular Hemoglobin Concent 34.6 g/dl Platelet Count 268 K/uL Mean Platelet Volume 12.3 fL Neutrophils (%) (Auto) 90.8 % Lymphocytes (%) (Auto) 2.5 % Monocytes (%) (Auto) 5.7 % Eosinophils (%) (Auto) 0.2 % Basophils (%) (Auto) 0.1 % Neutrophils # (Auto) 29.11 K/uL Lymphocytes # (Auto) 0.80 K/uL Monocytes # (Auto) 1.84 K/uL Eosinophils # (Auto) 0.06 K/uL Basophils # (Auto) 0.03 K/uL RDW Standard Deviation 72.8 fL RDW Coefficient of Variation 21.4 % Immature Granulocyte % (Auto) 0.7 % Immature Granulocyte # (Auto) 0.23 K/uL Nucleated RBC Absolute Count (auto) 0.06 K/uL Nucleated Red Blood Cells % 0.2 % Toxic Vacuolation 2+ Platelet Estimate NORMAL Anisocytosis PRESENT Spherocytes OCCASIONAL Pappenheimer Bodies 1+ Target Cells 1+ Echinocytes 3+ Lactic Acid Level 10.6 mmol/L Sodium Level 125 mmol/L Potassium Level 5.4 mmol/L Chloride Level 91 mmol/L Carbon Dioxide Level 13 mmol/L Anion Gap 21.0 mmol/L Blood Urea Nitrogen 160 mg/dl Creatinine 6.40 mg/dl Est Creatinine Clear Calc Drug Dose 11.6 ml/min Estimated GFR () 8.9 Estimated GFR (Non- 7.7 BUN/Creatinine Ratio 25.0 Random Glucose 258 mg/dl Calcium Level 8.3 mg/dl Phosphorus Level 7.3 mg/dl Magnesium Level 2.5 mg/dl Total Bilirubin 14.0 mg/dl Aspartate Amino Transf (AST/SGOT) 256 U/L Alanine Aminotransferase (ALT/SGPT) 84 U/L Alkaline Phosphatase 419 U/L Total Protein 5.4 gm/dl Albumin 1.8 gm/dl Globulin 3.6 gm/dl Albumin/Globulin Ratio 0.5 Impression Patient is a 76 year old male with melena, hematemesis. LFT are likely related to his CHF or possible metastatic disease but there is no evidence of biliary obstruction on CT. Plan Though he may have some, slow GI bleeding, in light of possible metastatic disease and kidney failure, EGD would not likely change his plan of care. He is high risk for sedation due to ischemic cardiomyopathy. I discussed the possibility of EGD with the patient describing the procedure and the risks/ benefits. Pt refuses EGD. GI will sign off. Please notify us if new, brisk GI bleeding and pt requesting EGD.
[2017-01-06] MEDS ORDERED: SCOPOLAMINE 1.5 MG TDSY TD SCH (10:00)
[2017-01-06] MEDS: HYDROmorphone HCL 2 MG TAB PO PRN (10:04)
[2017-01-06] MEDS ORDERED: HYDROmorphone INJ 0.5 MG/0.5 ML SYR ONE (10:24)
[2017-01-06] MEDS ORDERED: NURSING VERBAL MED ORDER ONE ×3 (10:30→12:45)
[2017-01-06] MEDS ORDERED: NOREPINEPHRINE BIT INJ 4 MG in DEXTROSE 5% 250ML 250 ML IV PRN (10:30)
[2017-01-06] MEDS ORDERED: HYDROmorphone INJ 0.5 MG/0.5 ML SYR IV PRN (10:45)
[2017-01-06] MEDS ORDERED: MoRPHine SULF/NSS INJ 1 MG/ML 250 ML BTL ONE (10:54)
[2017-01-06] MEDS ORDERED: MORPHINE SULF/NSS 250MG/250ML IV SCH (12:30)
[2017-01-06] MEDS ORDERED: LORAZEPAM 2 MG/ML 1 ML VIAL IV PRN (13:00)
--- NOTE | 2017-01-06 14:04 | Discharge Summary ---
Discharge Summary Date of Service Jan 06, 2017. Discharge Summary Admission Date: Jan 05, 2017 at 16:44 Discharge Disposition: Principal Diagnosis: Septic Shock, Multiorgan failure, Diffuse metastatic disease Procedures: CT ABD: 1. Findings compatible with diffuse sclerotic metastasis to the imaged axial and appendicular skeletal system. These findings are suspicious for prostate cancer. 2. Suggested diffuse hepatic metastasis with mild amount of intra-abdominal and intrapelvic ascites. 3. Small right pleural effusion with subsegmental consolidation of the bilateral lung bases suggesting atelectasis or pneumonitis. 4. Circumferential wall thickening of the urinary bladder suggests cystitis. 5. Mild fusiform aneurysmal dilation of the infrarenal abdominal aorta, 3.[address] Chest: 1. Numerous sclerotic skeletal lesions highly suggestive of blastic metastases. 2. Multiple hypodense hepatic lesions. These are suboptimally assessed on this unenhanced exam but suggestive of a neoplastic process and favor metastatic disease. Suspected cirrhosis with small amount of perihepatic ascites. 3. Moderate right and trace left pleural effusions. Associated airspace opacities favor atelectasis although an infectious process could appear similar. 4. Mild pulmonary edema. Venous Doppler; 1. No evidence of deep venous thrombus within the bilateral lower extremities. 2. 8.3 x 4.9 x 3.6 cm hypoechoic abnormality within the right popliteal fossa without color flow. This is nonspecific and could reflect a complex popliteal cyst, hematoma or less likely mass. Consultations: Case Folder, GI, Oncology, Nephrology Admission Information HPI (per Admitting provider): This is a 76 year old male with a PMH of CAD s/p CABG, ischemic cardiomyopathy with EF < 20% s/p AICD, A. Fib, DM2, HTN - presents s/p fall - states he has been weak for the past few days; family noticed his jaundice/yellowing skin a few days prior as well. States he fell because he was not strong enough. He has noted some diarrhea as his only other symptom. Does state he has chronic back pain, but no acute issues to note. On presentation, w/up shows significant dehydration - as per family his appetite is lacking and worse in the past few days. Further w/up suggests metastatic cancer to liver and bone; Family states that he was told about a spot on his L kidney, but no further w/up was done. Physical Exam (per Admitting): General Appearance: + mild distress, + pertinent finding (lethargic, jaundiced, ill-appearing; significant anasarca) Head: normocephalic, atraumatic ENT: hearing grossly normal Respiratory/Chest: no respiratory distress, no accessory muscle use Cardiovascular: regular rate, rhythm, no murmur Abdomen/GI: + tenderness, + distended, + pertinent finding (+anasarca) Extremities/Musculoskelatal: + swelling (+2 pitting edema b/l LE) Neurologic/Psych: alert Skin: + jaundice, + mottled, + pertinent finding (blistering of bilateral LE ; bullae) Hospital Course Patient is a 76 yr male with a PMH of CAD s/p CABG, ischemic cardiomyopathy with EF < 20% s/p AICD, A. Fib, DM2, HTN; presents with multi-organ failure, sepsis and hypotension Septic Shock/Multiorgan failure Metastatic disease Currently requiring 3 pressors to maintain his blood pressure Also on Broad spectrum IV antibiotics Patient prefers not get dialysis or any procedures Discussed with family/patient and Case Folder and decision made for DNI/DNR Palliative care was involved After discussing with family, decision was made to make him comfort measures Anasarca secondary to Metastatic disease and Sepsis primary possibly kidney/prostate; hx. of hematuria; has seen urology in the past CT suggests mets to the bone and liver Oncology consulted FIDENCIO on CKD, In setting of septic shock and metastasis No plan for dialysis given his comorbidities Appreciate Nephrology Input Ischemic Cardiomyopathy with EF < 20% Will arrange to turn off AICD per request from family Code Status: DNR/DNI Disposition: Transfer to medical floor Consulted Palliative care and Nurse Ob Patient at 1:09pm Total time spent on discharge = This includes examination of the patient, discharge planning, medication reconciliation, and communication with other providers. Discharge Instructions Patient
--- NOTE | 2017-01-06 14:55 | Critical Care Progress Note ---
Critical Care Progress Note Date of Service Jan 06, 2017. ICU Day ICU Day Number: [address] Castillo Subjective The patient was seen and examined at bedside. No acute overnight events. Pt states that he feels terrible, he cannot localize any specific pain, he just feels miserable. He wants to get out of bed. He states that there is a fly in the room that has been bugging him. After discussing with the family this morning the patients prognosis and code status were reviewed. Patient decided that he would be DNR. Plan of care was described to the patient and family and all questions were answered. Objective Gen: Pt is not in any acute distress. Obese body habitus. Jaundiced with scleral icterus. HEENT: Head - normocephalic and atraumatic. Pupils are equal, round, and reactive to light. Extraocular eye muscles are intact and sclera are anicteric. Ears - bilaterally patent canals with noninjected tympanic membranes and no evidence of hemotympanum. Nose - moist nasal mucosa without discharge. Mouth - moist buccal mucosa. Oropharynx is nonerythematous and there is no tonsillar exudate or edema noted. Neck: Supple; JVD present, nuchal rigidity, cervical lymphadenopathy, or auscultated bruits. Pt has IJ venous catheter in place. Heart: Regular rate and rhythm. There is a normal S1 and S2 with no murmurs, clicks, or gallops appreciated. Lungs: Clear to auscultation bilaterally with no wheezes, rales, or rhonchi. Abdomen: Slightly tender abdomen in RLQ, RUQ and LLQ on deep palpation, pt has ecchymosis from insulin injections. Pt is obese. No focal masses palpated. Soft, nontender, nondistended, with good bowel sounds. There is no guarding, rigidity, or rebound noted. Mild ascites present. Extremities: 2+ pitting edema in the lower extremities bilaterally. Neuro:The patient is awake and alert, oriented to day, time, and place. Muscle strength is 5/5 in all 4 extremities. The patient has equal diamond die driller strength and equal pedal push and pull. Current SOFA Score SOFA Score Response (Comments) Value Platelets (x10) > 150 0 Bilirubin (mg/dL) > 12.0 4 Agnieszka Coma Score 15 0 Level of Hypotension MAP less than 70 1 Creatinine (mg/dL) > 5.0 4 Total 9 Assessment & Plan 76M presenting s/p fall and generalized weakness x 1 week. Pt was found to be in multi organ failure due to metastatic disease of suspected origin in the kidney. After a discussion with the patient and family the pt's prognosis was discussed to be poor. Pt and family elected to be DNR/ DNI. Will hold all medications, pt will be comfort measures. Neuro: Pain control as follows, - Scopolamine 1.5mg patch, Q3Days, - Dilaudid 0.5mg Q4H PRN or 0.25mg IV Q4 PRN Resp: Dilaudid as above for any respiratory distress. CV: Cardiomyopathy - Will hold all pressors and defer to all pressors for end of life care. Fluids/Renal: Renal failure: Poor prognosis, end of life care emphasized and pain control. ID: Septic shock with unclear source: Will hold all Abx per patients and families wishes. GI/Nutrition: Transaminitis: Consider resuming diet as tolerated for comfort measures. Reglan 10mg Q4 IV PRN for nausea/vomiting. Heme: Anemia: No indication for transfusion. Endocrine: DM2: Will hold all Accu-Checks. Resident Physician Supervision Note: Dr. Cardozo was resident physician during care of patient. I separately evaluated patient and did history and exam. I discussed the case with the resident and generally agree with the findings and plan. Patient has had worsening clinical condition, septic shock with multisystem organ failure, requiring increase in vasopressor activity. Patient is essentially an urinary cath and has refused dialysis in the past and continues to do so. The patient is actively dying. The patient is still some mild lucid and I discussed this with his and son present at the bedside. All are in agreement that the patient should be made comfort care and kept comfortable during the natural dying process. This was also discussed with the attending hospitalist physician who is also in agreement. At this point we have made him a DO NOT RESUSCITATE in accordance with his wishes and discontinued vasopressor activity. We will contact [employer] to deactivate the AICD. I have personally spent 35 minutes of critical care time in the direct management of this patient. This is a life/limb threatening event. This includes time spent evaluating patient, direct bedside care, chart review, placing orders, interpretation of diagnostic studies, discussion with consultants, patient, and family members, as well as other required patient management activities. This time is exclusive of all separately billable procedures, and teaching time and separate from and in addition to any other critical care service time. Consults & Procedures Consultants: Nephro Heme/Onc GI Cardiology Procedures: Arterial Line Placement (Left Radial) on 01/05/17 Left IJ Placement on 01/05/17 Data Medications: Current Inpatient Medications Medications (Trade) Dose Ordered Sig/Ilya Route Start Time Stop Time Status Last Admin Dose Admin Hydromorphone HCl (Dilaudid Tab) 0.5 mg Q4H PRN PO 01/05/17 16:45 01/19/17 16:44 01/06/17 10:04 0.5 MG Digoxin (Lanoxin Tab) 0.125 mg MoWeFr@1600 PO 01/05/17 18:00 02/04/17 17:59 01/05/17 18:40 0.125 MG Miscellaneous Information (Order Awaiting Action) 1 ea QS N/A 01/06/17 00:00 02/05/17 00:00 Miscellaneous Information (Order Awaiting Action) 1 ea QS N/A 01/06/17 00:00 02/05/17 00:00 Metoclopramide HCl (Reglan Inj) 10 mg Q4H PRN IV 01/06/17 04:15 02/04/17 20:14 01/06/17 10:07 10 MG Heparin Sodium (Porcine) (Heparin 10 Unit/ ml 5 ml Flush) 5 ml PRN PRN FLUSH 01/06/17 02:45 02/05/17 02:44 Insulin Aspart (novoLOG ASPART) SLIDING SCALE G... ACHS SC 01/06/17 06:45 02/05/17 06:44 01/06/17 07:47 3 UNITS Vancomycin HCl (Consult) 1 ea UD PRN N/A 01/06/17 07:45 02/05/17 07:44 Scopolamine (Transderm-Scop Patch) 1.5 mg Q3D@0900 TD 01/06/17 10:00 02/05/17 09:59 01/06/17 10:27 1.5 MG Miscellaneous (Remove Transderm-Scop Patch) 1 ea Q3D@0859 N/A 01/09/17 08:59 02/08/17 08:58 Miscellaneous Information (Check Scopolamine Patch Placement) 1 ea QS N/A 01/06/17 16:00 02/05/17 15:59 Cefepime HCl (Consult) 1 ea UD PRN N/A 01/06/17 09:30 02/05/17 09:29 Hydromorphone HCl (Dilaudid Inj) 0.25 mg Q4H PRN IV 01/06/17 10:45 01/20/17 10:44 Morphine Sulfate/ Dextrose 250 ml @ 2 mls/hr Q24H IV 01/06/17 12:30 01/20/17 12:29 Lorazepam (Ativan Inj) 2 mg Q2H PRN IV 01/06/17 13:00 02/05/17 12:59 Vital Signs: Date Time Temp Pulse Resp B/P (MAP) Pulse Ox O2 Delivery O2 Flow Rate FiO2 01/06/17 08:00 36.6 92 20 112/42 (65) 93 01/06/17 08:00 Room Air 01/06/17 08:00 Room Air 01/06/17 06:19 88 (51) 92 100/33 94/44 01/06/17 06:03 86 (49) 90 76/24 86/46 01/06/17 05:03 36.6 83 78/17 (37) 92 01/06/17 05:03 83 (32) 92 78/17 110/44 01/06/17 05:00 84 (33) 91 79/11 01/06/17 05:00 84 79/11 (33) 91 01/06/17 04:45 81 95/19 (44) 93 01/06/17 04:45 81 (36) 93 95/19 01/06/17 04:15 82 30/2 (11) 93 01/06/17 04:03 83 (63) 92 101/33 101/36 01/06/17 04:03 83 101/36 (57) 92 01/06/17 04:00 89 95/24 (47) 92 01/06/17 04:00 Room Air 01/06/17 04:00 89 (44) 92 95/24 01/06/17 03:45 85 243/228 (233) 92 01/06/17 03:30 91 (44) 89 95/29 7/18/17 03:30 91 95/29 (51) 89 7/18/17 03:15 85 107/24 (51) 92 7/18/17 03:15 85 (42) 92 107/24 7/18/17 03:03 84 113/24 (53) 95 7/18/17 03:03 84 (43) 95 113/24 121/48 7/18/17 03:00 77 109/24 (52) 94 7/18/17 03:00 77 (42) 94 109/24 718/17 02:52 85 99/52 (68) 93 7/18/17 02:46 81 (46) 93 111/19 718/17 02:31 80 (47) 93 106/30 718/17 02:16 78 (52) 93 118/34 718/17 02:04 87 105/39 (61) 85 7/18/17 02:04 87 (42) 85 105/49 /39 718/17 02:01 83 (50) 91 107/31 718/17 02:00 83 20 112/27 (55) 91 7/18/17 01:46 86 (50) 94 123/30 7/18/17 01:31 74 (47) 94 112/29 7/18/17 01:16 86 (50) 93 124/30 7/18/17 01:05 85 106/29 (54) 92 7/18/17 01:05 85 (47) 92 106/29 104/85 718/17 01:00 85 107/27 (53) 94 7/18/17 00:46 79 (42) 93 108/25 718/17 00:31 88 (46) 93 111/27 718/17 00:16 87 (48) 92 98/28 718/17 00:04 86 18 92/33 (52) 93 7/18/17 00:04 86 (50) 92/33 109/70 718/17 00:00 86 113/28 (56) 91 01/05/17 23:59 Room Air 01/05/17 22:30 85 (43) 91 79/21 17/17 22:15 88 (45) 92 99/28 17 22:00 91 18 101/31 (54) 93 01/05/17 22:00 91 (50) 93 101/31 01/05/17 21:45 85 (51) 92 109/32 01/05/17 21:30 87 (58) 92 129/35 01/05/17 21:15 86 (50) 93 87/32 17 21:04 88 (53) 93 113/33 99/48 01/05/17 21:04 88 113/33 (59) 93 17 21:00 88 117/33 (61) 92 17 21:00 88 (54) 92 117/33 01/05/17 20:45 87 (52) 93 115/32 01/05/17 20:30 90 (53) 93 108/34 01/05/17 20:15 89 (50) 90 100/32 01/05/17 20:00 89 (54) 93 112/33 01/05/17 20:00 36.4 89 18 112/33 (59) 93 01/05/17 20:00 Room Air 01/05/17 19:45 85 (34) 91 56/24 01/05/17 19:30 80 (46) 92 96/29 01/05/17 19:15 82 (37) 91 67/26 01/05/17 19:03 77 69/28 (42) 92 01/05/17 19:03 77 (37) 92 69/28 /29 01/05/17 19:00 81 75/29 (44) 92 01/05/17 18:45 79 66/25 (39) 92 01/05/17 18:40 77 17 18:30 81 76/26 (43) 92 17 18:15 82 79/29 (46) 95 17 18:03 82 74/28 (43) 97 17 18:00 74 88/30 (49) 97 01/05/17 17:37 76 23 76/37 95 Nasal Cannula 3.0 17 17:01 85 20 60/35 96 Nasal Cannula 3.0 17 16:41 70 17 16:23 71 20 55/37 96 Nasal Cannula 3.0 17 15:16 63/43 NIBP 01/05/17 15:09 74 14 56/38 97 Room Air 2.5 01/05/17 14:45 75 14 140/108 95 Nasal Cannula 2.0 01/05/17 14:15 78 18 119/98 99 Nasal Cannula 2.0 Laboratory Results: Last 24 Hours Test 01/05/17 14:10 01/05/17 14:26 01/05/17 14:28 01/05/17 14:50 Bedside Glucose 97 mg/dl 92 mg/dl 87 mg/dl Prothrombin Time 27.0 SECONDS Prothromb Time International Ratio 2.4 Activated Partial Thromboplast Time 55.5 SECONDS Partial Thromboplastin Ratio 2.1 Sodium Level 129 mmol/L Potassium Level 5.1 mmol/L Chloride Level 95 mmol/L Carbon Dioxide Level 21 mmol/L Anion Gap 13.0 mmol/L Blood Urea Nitrogen 164 mg/dl Creatinine 6.10 mg/dl Est Creatinine Clear Calc Drug Dose 12.4 ml/min Estimated GFR () 9.4 Estimated GFR (Non- 8.1 BUN/Creatinine Ratio 26.9 Random Glucose 97 mg/dl Lactic Acid Level 5.7 mmol/L Calcium Level 8.6 mg/dl Magnesium Level 2.5 mg/dl Total Bilirubin 14.1 mg/dl Aspartate Amino Transf (AST/SGOT) 206 U/L Alanine Aminotransferase (ALT/SGPT) 73 U/L Alkaline Phosphatase 452 U/L Troponin I 0.068 ng/ml Total Protein 5.6 gm/dl Albumin 1.7 gm/dl Globulin 3.9 gm/dl Albumin/Globulin Ratio 0.4 Procalcitonin 3.90 ng/ml Thyroid Stimulating Hormone (TSH) 0.896 uIu/ml Random Cortisol 25.94 mcg/dl Digoxin Level 0.6 ng/ml Test 01/05/17 16:20 01/05/17 16:40 01/05/17 20:01 01/05/17 23:33 Bedside Glucose 90 mg/dl 236 mg/dl Urine Color BROWN Urine Appearance CLOUDY Urine pH Urine Specific [place] 1.023 Urine Protein POS Urine Glucose (UA) Urine Ketones Urine Occult Blood Urine Nitrite Urine Bilirubin Urine Urobilinogen Urine Leukocyte Esterase Urine RBC 0-4 /hpf Urine WBC 1-5 /hpf Urine Epithelial Cells 20-30 /lpf Urine Amorphous Sediment PRESENT Urine Bacteria 2+ Urine Granular Casts 0-3 /lpf Lactic Acid Level 7.8 mmol/L Test 01/05/17 23:44 01/06/17 00:41 01/06/17 03:43 01/06/17 04:15 Lactic Acid Level 9.6 mmol/L 10.6 mmol/L Total Creatine Kinase 261 U/L Creatine Kinase MB 10.9 ng/ml Creatine Kinase MB Ratio 4.2 Troponin I 0.193 ng/ml White Blood Count 32.07 K/uL Red Blood Count 2.85 M/uL Hemoglobin 9.4 g/dL Hematocrit 27.2 % Mean Corpuscular Volume 95.4 fL Mean Corpuscular Hemoglobin 33.0 pg Mean Corpuscular Hemoglobin Concent 34.6 g/dl Platelet Count 268 K/uL Mean Platelet Volume 12.3 fL Neutrophils (%) (Auto) 90.8 % Lymphocytes (%) (Auto) 2.5 % Monocytes (%) (Auto) 5.7 % Eosinophils (%) (Auto) 0.2 % Basophils (%) (Auto) 0.1 % Neutrophils # (Auto) 29.11 K/uL Lymphocytes # (Auto) 0.80 K/uL Monocytes # (Auto) 1.84 K/uL Eosinophils # (Auto) 0.06 K/uL Basophils # (Auto) 0.03 K/uL RDW Standard Deviation 72.8 fL RDW Coefficient of Variation 21.4 % Immature Granulocyte % (Auto) 0.7 % Immature Granulocyte # (Auto) 0.23 K/uL Nucleated RBC Absolute Count (auto) 0.06 K/uL Nucleated Red Blood Cells % 0.2 % Toxic Vacuolation 2+ Platelet Estimate NORMAL Anisocytosis PRESENT Spherocytes OCCASIONAL Pappenheimer Bodies 1+ Target Cells 1+ Echinocytes 3+ Sodium Level 125 mmol/L Potassium Level 5.4 mmol/L Chloride Level 91 mmol/L Carbon Dioxide Level 13 mmol/L Anion Gap 21.0 mmol/L Blood Urea Nitrogen 160 mg/dl Creatinine 6.40 mg/dl Est Creatinine Clear Calc Drug Dose 11.6 ml/min Estimated GFR () 8.9 Estimated GFR (Non- 7.7 BUN/Creatinine Ratio 25.0 Random Glucose 258 mg/dl Calcium Level 8.3 mg/dl Phosphorus Level 7.3 mg/dl Magnesium Level 2.5 mg/dl Total Bilirubin 14.0 mg/dl Aspartate Amino Transf (AST/SGOT) 256 U/L Alanine Aminotransferase (ALT/SGPT) 84 U/L Alkaline Phosphatase 419 U/L Total Protein 5.4 gm/dl Albumin 1.8 gm/dl Globulin 3.6 gm/dl Albumin/Globulin Ratio 0.5 Test 01/06/17 08:40 Creatine Kinase MB Ratio Resident Involvement: Resident Care Provided Care Provided: Adult [facility] Medicine
[2017-01-06] MEDS ORDERED: CHECK SCOPOLAMINE PATCH PLACEMENT SCH (16:00)
--- NOTE | 2017-01-06 16:55 | Palliative Care Consultation ---
Consultation Date of Consultation: Jan 06, 2017. Requesting Physician: Dr. Goodman Attending Physician: Dr. Goodman Reason for Consultation: Comfort care History of Present Illness This 76 year old male patient with a PMH of CAD s/p CABG, ischemic cardiomyopathy with EF < 20% s/p AICD, A. Fib, DM2, and htn, presented to the ED s/p fall. History obtained mostly from record. Apparently he had been weak for the past few days. Family noticed his jaundice/yellowing skin a few days prior as well. He has noted some diarrhea as his only other symptom. Does state he has chronic back pain, but no acute issues to note. On presentation, w/up showed significant dehydration. Per family his appetite was quite poor. Further w/up suggests metastatic cancer to liver and bone; Family states that he was told about a spot on his left kidney, but no further w/up was done. He was admitted to ICU with multi system organ failure, requiring vasoactive medication. Patient in renal failure, septic shock, with cardiomyopathy and transaminitis. CT abd/pelvis showed "1. Findings compatible with diffuse sclerotic metastasis to the imaged axial and appendicular skeletal system. These findings are suspicious for prostate cancer. 2. Suggested diffuse hepatic metastasis with mild amount of intra-abdominal and intrapelvic ascites. 3. Small right pleural effusion with subsegmental consolidation of the bilateral lung bases suggesting atelectasis or pneumonitis. 4. Circumferential wall thickening of the urinary bladder suggests cystitis. 5. 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 Patient's condition continued to decline rapidly. He refused dialysis in the past and continues to do so, refused echocardiogram this morning. 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 Palliative care consulted. When I arrived to room 104 patient was finally calm after a very difficult few hours trying to manage his pain and agitation. Morphine gtt had been starated by Dr. Goodman. His Lesa and his son were at bedside. They confirmed that the goal is strictly for comfort and for the patient to pass away peacefully. They would like to stop abx, insulin, IVF and any other medications/ treatments unrelated to comfort. patient is already in the process of being transferred to fourth floor. Past Medical/Surgical History Medical History: as above Social History Smoking Status: Former Smoker History of Alcohol Use: No Drug Use: none Marital Status: Housing Status: lives with family, [employer] Occupation Status: retired, disabled Review of Systems unable to obtain Allergies Coded Allergies: Zolpidem (Verified Allergy, Intermediate, SHORTNESS OF BREATH, 01/05/17) complaint of cough and shortness breath and itching Penicillins (Verified Allergy, Unknown, RASH, 01/05/17) Medications Current Inpatient Medications Medications (Trade) Dose Ordered Sig/Ilya Route Start Time Stop Time Status Last Admin Dose Admin Hydromorphone HCl (Dilaudid Tab) 0.5 mg Q4H PRN PO 01/05/17 16:45 01/19/17 16:44 01/06/17 10:04 0.5 MG Digoxin (Lanoxin Tab) 0.125 mg MoWeFr@1600 PO 01/05/17 18:00 02/04/17 17:59 01/05/17 18:40 0.125 MG Miscellaneous Information (Order Awaiting Action) 1 ea QS N/A 01/06/17 00:00 02/05/17 00:00 Miscellaneous Information (Order Awaiting Action) 1 ea QS N/A 01/06/17 00:00 02/05/17 00:00 Metoclopramide HCl (Reglan Inj) 10 mg Q4H PRN IV 01/06/17 04:15 02/04/17 20:14 01/06/17 10:07 10 MG Heparin Sodium (Porcine) (Heparin 10 Unit/ ml 5 ml Flush) 5 ml PRN PRN FLUSH 01/06/17 02:45 02/05/17 02:44 Insulin Aspart (novoLOG ASPART) SLIDING SCALE G... ACHS SC 01/06/17 06:45 02/05/17 06:44 01/06/17 07:47 3 UNITS Vancomycin HCl (Consult) 1 ea UD PRN N/A 01/06/17 07:45 02/05/17 07:44 Scopolamine (Transderm-Scop Patch) 1.5 mg Q3D@0900 TD 01/06/17 10:00 02/05/17 09:59 01/06/17 10:27 1.5 MG Miscellaneous (Remove Transderm-Scop Patch) 1 ea Q3D@0859 N/A 01/09/17 08:59 02/08/17 08:58 Miscellaneous Information (Check Scopolamine Patch Placement) 1 ea QS N/A 01/06/17 16:00 02/05/17 15:59 Cefepime HCl (Consult) 1 ea UD PRN N/A 01/06/17 09:30 02/05/17 09:29 Hydromorphone HCl (Dilaudid Inj) 0.25 mg Q4H PRN IV 01/06/17 10:45 01/20/17 10:44 Morphine Sulfate/ Dextrose 250 ml @ 2 mls/hr Q24H IV 01/06/17 12:30 01/20/17 12:29 Lorazepam (Ativan Inj) 2 mg Q2H PRN IV 01/06/17 13:00 02/05/17 12:59 Physical Exam Date Time Temp Pulse Resp B/P (MAP) Pulse Ox O2 Delivery O2 Flow Rate FiO2 01/06/17 08:00 36.6 92 20 112/42 (65) 93 01/06/17 08:00 Room Air 01/06/17 08:00 Room Air 01/06/17 06:19 88 (51) 92 100/33 94/44 01/06/17 06:03 86 (49) 90 76/24 86/46 01/06/17 05:03 36.6 83 78/17 (37) 92 01/06/17 05:03 83 (32) 92 78/17 110/44 01/06/17 05:00 84 (33) 91 79/11 01/06/17 05:00 84 79/11 (33) 91 01/06/17 04:45 81 95/19 (44) 93 01/06/17 04:45 81 (36) 93 95/19 01/06/17 04:15 82 30/2 (11) 93 01/06/17 04:03 83 (63) 92 101/33 101/36 01/06/17 04:03 83 101/36 (57) 92 01/06/17 04:00 89 95/24 (47) 92 01/06/17 04:00 Room Air 01/06/17 04:00 89 (44) 92 95/24 7/18/17 03:45 85 243/228 (233) 92 718/17 03:30 91 (44) 89 95/29 718/17 03:30 91 95/29 (51) 89 7/18/17 03:15 85 107/24 (51) 92 7/18/17 03:15 85 (42) 92 107/24 718/17 03:03 84 113/24 (53) 95 718/17 03:03 84 (43) 95 113/24 121/48 718/17 03:00 77 109/24 (52) 94 7/18/17 03:00 77 (42) 94 109/24 718/17 02:52 85 99/52 (68) 93 718/17 02:46 81 (46) 93 111/19 718/17 02:31 80 (47) 93 106/30 718/17 02:16 78 (52) 93 118/34 718/17 02:04 87 105/39 (61) 85 718/17 02:04 87 (42) 85 105/49 /39 718/17 02:01 83 (50) 91 107/31 718/17 02:00 83 20 112/27 (55) 91 7/18/17 01:46 86 (50) 94 123/30 718/17 01:31 74 (47) 94 112/29 718/17 01:16 86 (50) 93 124/30 718/17 01:05 85 106/29 (54) 92 7/18/17 01:05 85 (47) 92 106/29 104/85 718/17 01:00 85 107/27 (53) 94 7/18/17 00:46 79 (42) 93 108/25 718/17 00:31 88 (46) 93 111/27 718/17 00:16 87 (48) 92 98/28 718/17 00:04 86 18 92/33 (52) 93 7/18/17 00:04 86 (50) 92/33 109/70 718/17 00:00 86 113/28 (56) 91 17 23:59 Room Air 01/05/17 22:30 85 (43) 91 79/21 717/17 22:15 88 (45) 92 99/28 01/05/17 22:00 91 18 101/31 (54) 93 01/05/17 22:00 91 (50) 93 101/31 01/05/17 21:45 85 (51) 92 109/32 01/05/17 21:30 87 (58) 92 129/35 17 21:15 86 (50) 93 87/32 17 21:04 88 (53) 93 113/33 99/48 01/05/17 21:04 88 113/33 (59) 93 01/05/17 21:00 88 117/33 (61) 92 01/05/17 21:00 88 (54) 92 117/33 01/05/17 20:45 87 (52) 93 115/32 01/05/17 20:30 90 (53) 93 108/34 01/05/17 20:15 89 (50) 90 100/32 01/05/17 20:00 89 (54) 93 112/33 01/05/17 20:00 36.4 89 18 112/33 (59) 93 01/05/17 20:00 Room Air 01/05/17 19:45 85 (34) 91 56/24 01/05/17 19:30 80 (46) 92 96/29 01/05/17 19:15 82 (37) 91 67/26 01/05/17 19:03 77 69/28 (42) 92 01/05/17 19:03 77 (37) 92 69/28 /29 01/05/17 19:00 81 75/29 (44) 92 01/05/17 18:45 79 66/25 (39) 92 17 18:40 77 01/05/17 18:30 81 76/26 (43) 92 17 18:15 82 79/29 (46) 95 01/05/17 18:03 82 74/28 (43) 97 01/05/17 18:00 74 88/30 (49) 97 01/05/17 17:37 76 23 76/37 95 Nasal Cannula 3.0 17 17:01 85 20 60/35 96 Nasal Cannula 3.0 17 16:41 70 17 16:23 71 20 55/37 96 Nasal Cannula 3.0 01/05/17 15:16 63/43 NIBP 01/05/17 15:09 74 14 56/38 97 Room Air 2.5 01/05/17 14:45 75 14 140/108 95 Nasal Cannula 2.0 01/05/17 14:15 78 18 119/98 99 Nasal Cannula 2.0 01/05/17 13:33 95 Nasal Cannula 2.0 01/05/17 13:32 81 22 109/96 94 Nasal Cannula 2.0 01/05/17 13:20 36.5 80 16 88/39 91 Room Air 01/05/17 13:15 78 General Appearance: + pertinent finding (chronically ill appearing; agonal breathing; anasarca) Eyes: + pertinent finding (bilateral icterus) Neck: no JVD Respiratory: no respiratory distress, no accessory muscle use, + pertinent finding (agonal breathing) Cardiovascular: regular rate, rhythm Abdomen: normal bowel sounds, soft, + distended Neurologic/Psychiatric: + pertinent finding (obtunded) Skin: + jaundice Laboratory Results Last 24 Hours Test 01/05/17 13:38 01/05/17 13:40 01/05/17 13:42 01/05/17 14:10 White Blood Count 28.38 K/uL Red Blood Count 3.23 M/uL Hemoglobin 10.5 g/dL Hematocrit 30.0 % Mean Corpuscular Volume 92.9 fL Mean Corpuscular Hemoglobin 32.5 pg Mean Corpuscular Hemoglobin Concent 35.0 g/dl Platelet Count 178 K/uL Mean Platelet Volume 10.3 fL Neutrophils (%) (Auto) 90.9 % Lymphocytes (%) (Auto) 3.1 % Monocytes (%) (Auto) 4.2 % Eosinophils (%) (Auto) 0.6 % Basophils (%) (Auto) 0.1 % Neutrophils # (Auto) 25.83 K/uL Lymphocytes # (Auto) 0.87 K/uL Monocytes # (Auto) 1.18 K/uL Eosinophils # (Auto) 0.18 K/uL Basophils # (Auto) 0.02 K/uL RDW Standard Deviation 69.6 fL RDW Coefficient of Variation 21.2 % Immature Granulocyte % (Auto) 1.1 % Immature Granulocyte # (Auto) 0.30 K/uL Polychromasia 1+ Anisocytosis PRESENT Target Cells 1+ Ovalocytes 1+ Echinocytes 1+ Bedside Glucose 65 mg/dl 97 mg/dl Bedside Lactic Acid Venous 5.78 mmol/L Test 01/05/17 14:26 01/05/17 14:28 01/05/17 14:50 01/05/17 16:20 Bedside Glucose 92 mg/dl 87 mg/dl 90 mg/dl Prothrombin Time 27.0 SECONDS Prothromb Time International Ratio 2.4 Activated Partial Thromboplast Time 55.5 SECONDS Partial Thromboplastin Ratio 2.1 Sodium Level 129 mmol/L Potassium Level 5.1 mmol/L Chloride Level 95 mmol/L Carbon Dioxide Level 21 mmol/L Anion Gap 13.0 mmol/L Blood Urea Nitrogen 164 mg/dl Creatinine 6.10 mg/dl Est Creatinine Clear Calc Drug Dose 12.4 ml/min Estimated GFR () 9.4 Estimated GFR (Non- 8.1 BUN/Creatinine Ratio 26.9 Random Glucose 97 mg/dl Lactic Acid Level 5.7 mmol/L Calcium Level 8.6 mg/dl Magnesium Level 2.5 mg/dl Total Bilirubin 14.1 mg/dl Aspartate Amino Transf (AST/SGOT) 206 U/L Alanine Aminotransferase (ALT/SGPT) 73 U/L Alkaline Phosphatase 452 U/L Troponin I 0.068 ng/ml Total Protein 5.6 gm/dl Albumin 1.7 gm/dl Globulin 3.9 gm/dl Albumin/Globulin Ratio 0.4 Procalcitonin 3.90 ng/ml Thyroid Stimulating Hormone (TSH) 0.896 uIu/ml Random Cortisol 25.94 mcg/dl Digoxin Level 0.6 ng/ml Test 01/05/17 16:40 01/05/17 20:01 01/05/17 23:33 01/05/17 23:44 Urine Color BROWN Urine Appearance CLOUDY Urine pH Urine Specific [place] 1.023 Urine Protein POS Urine Glucose (UA) Urine Ketones Urine Occult Blood Urine Nitrite Urine Bilirubin Urine Urobilinogen Urine Leukocyte Esterase Urine RBC 0-4 /hpf Urine WBC 1-5 /hpf Urine Epithelial Cells 20-30 /lpf Urine Amorphous Sediment PRESENT Urine Bacteria 2+ Urine Granular Casts 0-3 /lpf Lactic Acid Level 7.8 mmol/L 9.6 mmol/L Bedside Glucose 236 mg/dl Test 01/06/17 00:41 01/06/17 03:43 01/06/17 04:15 01/06/17 08:40 Total Creatine Kinase 261 U/L Creatine Kinase MB 10.9 ng/ml Creatine Kinase MB Ratio 4.2 Troponin I 0.193 ng/ml White Blood Count 32.07 K/uL Red Blood Count 2.85 M/uL Hemoglobin 9.4 g/dL Hematocrit 27.2 % Mean Corpuscular Volume 95.4 fL Mean Corpuscular Hemoglobin 33.0 pg Mean Corpuscular Hemoglobin Concent 34.6 g/dl Platelet Count 268 K/uL Mean Platelet Volume 12.3 fL Neutrophils (%) (Auto) 90.8 % Lymphocytes (%) (Auto) 2.5 % Monocytes (%) (Auto) 5.7 % Eosinophils (%) (Auto) 0.2 % Basophils (%) (Auto) 0.1 % Neutrophils # (Auto) 29.11 K/uL Lymphocytes # (Auto) 0.80 K/uL Monocytes # (Auto) 1.84 K/uL Eosinophils # (Auto) 0.06 K/uL Basophils # (Auto) 0.03 K/uL RDW Standard Deviation 72.8 fL RDW Coefficient of Variation 21.4 % Immature Granulocyte % (Auto) 0.7 % Immature Granulocyte # (Auto) 0.23 K/uL Nucleated RBC Absolute Count (auto) 0.06 K/uL Nucleated Red Blood Cells % 0.2 % Toxic Vacuolation 2+ Platelet Estimate NORMAL Anisocytosis PRESENT Spherocytes OCCASIONAL Pappenheimer Bodies 1+ Target Cells 1+ Echinocytes 3+ Lactic Acid Level 10.6 mmol/L Sodium Level 125 mmol/L Potassium Level 5.4 mmol/L Chloride Level 91 mmol/L Carbon Dioxide Level 13 mmol/L Anion Gap 21.0 mmol/L Blood Urea Nitrogen 160 mg/dl Creatinine 6.40 mg/dl Est Creatinine Clear Calc Drug Dose 11.6 ml/min Estimated GFR () 8.9 Estimated GFR (Non- 7.7 BUN/Creatinine Ratio 25.0 Random Glucose 258 mg/dl Calcium Level 8.3 mg/dl Phosphorus Level 7.3 mg/dl Magnesium Level 2.5 mg/dl Total Bilirubin 14.0 mg/dl Aspartate Amino Transf (AST/SGOT) 256 U/L Alanine Aminotransferase (ALT/SGPT) 84 U/L Alkaline Phosphatase 419 U/L Total Protein 5.4 gm/dl Albumin 1.8 gm/dl Globulin 3.6 gm/dl Albumin/Globulin Ratio 0.5 Assessment & Plan Palliative Performance Scale: 10 % Problem list: Obtundation Metastatic disease including to liver Jaundice Anasarca FIDENCIO on CKD- anuric Ischemic cardiomyopathy, EF <20% Goals of care (Z51.5) Palliative care recommendations: discussed with patient's Lesa, son, and Dr. Goodman. -DNR/DNI per previous conversation. -Morphine gtt already infusing. and son understand that increasing morphine gtt for comfort will make patient more sedate and are okay with it. Their goal is strictly for comfort and for the patient to pass away peacefully. -Add lorazepam 2mg IV Q2h PRN agitation/anxiety -Continue scopolamine patch. -Discontinue all PO meds, abx, and insulin- this was specifically discussed with patient's family. -Given patient's current condition, it is in my best opinion he has hours to days to live. Family understands. -Turn off ICD. -Transfer to [facility] for [facility] RO[facility] C[facility]. Thank you kindly for this consult. I will continue to follow as needed.
[2017-01-06] MEDS ORDERED: INSULIN GLARGINE SOLOSTAR 100 UNITS/ML 3 ML PEN SC SCH (21:00)
== END 2017-01-06 18:11 | disposition expired | DRG 871 ==
LOC: EDBD 13:03 → C.EDA 13:04 → C.MSICU 16:44 → ENRESERV 16:56 → CANBEDREQ 01-06 10:12 → ENRESERV 01-06 11:52 → C.4E 01-06 13:10
PROVIDERS: ADMIT Family Medicine; ATTEND Internal Medicine
PROC: 02HV33Z Insertion of Infusion Device into Superior Vena Cava, Percutaneous Approach (ICD-10-PCS; principal; 2017-01-05)
PROC: 03HY32Z Insertion of Monitoring Device into Upper Artery, Percutaneous Approach (ICD-10-PCS; principal; 2017-01-05)
DX: A41.9 Sepsis, unspecified organism (principal); R65.21 Severe sepsis with septic shock; Z51.5 Encounter for palliative care; N17.9 Acute kidney failure, unspecified; K92.1 Melena; C78.7 Secondary malignant neoplasm of liver and intrahepatic bile duct; C79.51 Secondary malignant neoplasm of bone; C64.9 Malignant neoplasm of unspecified kidney, except renal pelvis; I11.0 Hypertensive heart disease with heart failure; I48.91 Unspecified atrial fibrillation; I25.10 Atherosclerotic heart disease of native coronary artery without angina pectoris; Z83.3 Family history of diabetes mellitus; Z82.49 Family history of ischemic heart disease and other diseases of the circulatory system; Z87.891 Personal history of nicotine dependence; E86.0 Dehydration; I50.9 Heart failure, unspecified; Z95.1 Presence of aortocoronary bypass graft; I25.5 Ischemic cardiomyopathy; E11.9 Type 2 diabetes mellitus without complications; Z66 Do not resuscitate; I95.9 Hypotension, unspecified